=== PATIENT | male | born 1990 | race American Indian/Alaskan Native ===

== ENCOUNTER 2016-09-11 10:52 | Emergency (ER) | payer SELFPAY ==
--- NOTE | 2016-09-11 11:11 | Emergency Department Report ---
Chief Complaint: Abdominal Pain Stated Complaint: LOWER LEFT SIDE PAIN Time Seen by Provider: 09/11/16 11:09 - HPI History of Present Illness: 26 male complaining of intermittent left flank pain 1 month. Complain of nausea. Denies any vomiting, diarrhea ,or painful urination. - ROS Review of Systems: per HPI - Exam Vital Signs: Vital Signs 09/11/16 10:55 Temperature 98.6 F Pulse Rate 76 Respiratory 18 Rate Blood Pressure 130/91 O2 Sat by Pulse 97 Oximetry Physical Exam: GENERAL: The patient is well-developed and well-nourished. Patient is in NAD. HENT: Normocephalic. Atraumatic. Patient has moist mucous membranes. Throat: No erythema, swelling or exudates. EYES: Extraocular motions are intact, PERRL NECK: Supple. No meningitic signs are noted. There is no adenopathy noted. CHEST/LUNGS: Clear to auscultation bilaterally. No wheezing, rales or rhonchi noted. There is no respiratory distress noted. HEART/CARDIOVASCULAR: Regular rate and rhythm. Normal S1 S2. No murmurs, rubs , clicks, or gallops. ABDOMEN: Abdomen is soft, nontender.. Bowel sounds normoactive. There is no abdominal distention. Negative rebound tenderness. : Deferred. SKIN: There is no rash. There is no edema. There is no diaphoresis. NEURO: The patient is A&Ox3. The patient has no focal neurologic deficits. MUSCULOSKELETAL: There is no tenderness or deformity. There is no limitation range of motion. PSYCH: Pt has appropriate mood and affect. MSE screening note: Focused history and physical exam performed. Due to findings the following was ordered: ED Disposition for MSE Condition: Stable
[2016-09-11 11:37] LABS: Anion Gap 18 mmol/L; BUN/Creatinine Ratio 18.57; Blood Urea Nitrogen 13 mg/dL (9-20); Calcium 8.8 mg/dL (8.4-10.2); Carbon Dioxide 24 mmol/L (22-30); Chloride 100.6 mmol/L (98-107); Glucose 104 mg/dL (75-100); Potassium 4.1 mmol/L (3.6-5.0); Sodium 138 mmol/L (137-145)
[2016-09-11 11:39] LABS: Basophils % (Auto) 0.4 % (0.0-1.8); Hematocrit 39.2 % (35.5-45.6); Mean Corpuscular HGB Conc 33 % (32-34); Mean Corpuscular Hemoglobin 31 pg (28-32); Mean Corpuscular Volume 93 fl (84-94); Platelet Count 189 K/mm3 (140-440); Red Blood Count 4.23 M/mm3 (3.65-5.03); Red Cell Distribution Width 13.1 % (13.2-15.2)
[2016-09-11 11:55] LABS: Mucus,Urine FEW /HPF
[2016-09-11 12:20] LABS: WBC,Urine < 1.0 /HPF (0.0-6.0)
[2016-09-11 12:35] LABS: Bilirubin,Urine NEG (Negative); Blood,Urine NEG (Negative); Ketones,Urine NEG (Negative); Leukocyte Esterase,Urine NEG (Negative); Nitrite,Urine NEG (Negative); Protein,Urine <15 mg/dL mg/dL (Negative)
--- NOTE | 2016-09-11 13:30 | Cat Scan Report ---
CT ABDOMEN AND PELVIS WITHOUT CONTRAST: 09/11/16 10:52:00 CLINICAL:Left flank pain. TECHNIQUE: Volumetric acquisition and 1.25 millimeter scan reconstructions from the lung bases through the iliac crest. The study was performed without oral contrast. FINDINGS: Abdomen:Normal kidneys with nondilated renal collecting systems and ureters. No urinary calculus. Normal liver, bile ducts and gallbladder. Normal stomach, duodenum, pancreas and spleen. Normal aorta and inferior vena cava. The adrenal glands are normal. No ascites and no pneumoperitoneum. The small bowel and colon are normal. An appendix is not identified with certainty. Pelvis: Normal urinary bladder and rectum. Normal prostate and seminal vesicles. Bone windows demonstrate no bone lesion. IMPRESSION: Negative study.
--- NOTE | 2016-09-11 13:41 | Emergency Department Report ---
HPI - General Chief Complaint: Abdominal Pain Time Seen by Provider: 09/11/16 12:11 - HPI HPI: Chief complaint: Left upper abdominal pain HPI: Patient is 26-year-old male with a history of HIV with T-cell count greater than 200 as well as seizure disorder presents with left upper quadrant flank pain intermittent for the last month. Patient states he first noticed it around August 17 states he has it every other day lasting for 10-20 minutes. Patient states that last night it seemed worse than usual so he came to the hospital. Patient is currently not having any pain. Patient had run out of his seizure medications and have a seizure yesterday and was seen at another facility and loaded with Dilantin and put back on his medications. Patient states he has been taking his antiretrovirals faithfully. Mode of arrival: private car Source: Patient and nursing notes Began: See above Duration: See above Context: She denies any dysuria, vomiting or diarrhea. Patient does complain of some nausea Quality: Sharp Severity: Currently 0 out of 10 Improved with: Nothing Worsened with: Nothing Associated signs and symptoms: See above ED Past Medical Hx - Past Medical History Previous Medical History?: Yes Hx Seizures: Yes (No meds for 2 months) Hx Psychiatric Treatment: Yes (DEPRESSION/SUICIDAL) Hx HIV: Yes (No HAART meds for two months) - Surgical History Past Surgical History?: No - Social History Smoking Status: Never Smoker Substance Use Type: None - Medications Home Medications: Home Medications Medication Instructions Recorded Confirmed Last Taken Type Phenytoin [Dilantin] 100 mg PO Q8HR #90 capsule 05/15/15 09/16/15 09/12/15 Rx Abacavir Sulfate/Lamivudine 1 each PO DAILY 09/28/15 09/11/16 04/25/16 History [Epzicom TAB] Atazanavir Sulfate [Reyataz] 400 mg PO QDAY 09/28/15 09/11/16 04/25/16 History Phenytoin [Dilantin] 100 mg PO Q8HR 09/11/16 09/11/16 Unknown History ED Review of Systems ROS: Stated complaint: LOWER LEFT SIDE PAIN Other details as noted in HPI ROS Constitutional: No fever ENT: No uri symptoms Cardiovascular: No chest pain Respiratory: No sob or cough GI: No vomiting or diarrhea : No dysuria frequency or urgency, Skin: No rash Neuro: No focal weakness or numbness Psych: No depression Stewart/lymph: No edema Physical Exam - Physical Exam Vital Signs: Vital Signs 09/11/16 09/11/16 09/11/16 10:55 12:11 12:12 Temperature 98.6 F Pulse Rate 76 Respiratory 18 Rate Blood Pressure 130/91 120/93 120/93 O2 Sat by Pulse 97 100 Oximetry 09/11/16 09/11/16 12:15 12:30 Temperature Pulse Rate Respiratory 18 Rate Blood Pressure 116/78 O2 Sat by Pulse 97 99 Oximetry Physical Exam: GENERAL: The patient is well-developed well-nourished . HEENT: Normocephalic. Atraumatic. Extraocular motions are intact. Patient has moist mucous membranes. NECK: Supple. No meningitic signs are noted. There is no adenopathy noted. CHEST/LUNGS: Clear to auscultation. There is no respiratory distress noted. HEART/CARDIOVASCULAR: Regular. There is no tachycardia. There is no gallop rub or murmur. ABDOMEN: Abdomen is soft, nontender. Patient has normal bowel sounds. There is no abdominal distention. SKIN: There is no rash. There is no edema. There is no diaphoresis. NEURO: The patient is awake, alert, and oriented. The patient is cooperative. The patient has no focal neurologic deficits. The patient has normal speech. MUSCULOSKELETAL: There is no tenderness or deformity. There is no limitation range of motion. There is no evidence of acute injury. ED Course Vital Signs 09/11/16 09/11/16 09/11/16 10:55 12:11 12:12 Temperature 98.6 F Pulse Rate 76 Respiratory 18 Rate Blood Pressure 130/91 120/93 120/93 O2 Sat by Pulse 97 100 Oximetry 09/11/16 09/11/16 12:15 12:30 Temperature Pulse Rate Respiratory 18 Rate Blood Pressure 116/78 O2 Sat by Pulse 97 99 Oximetry ED Medical Decision Making - Lab Data Result diagrams: 09/11/16 11:14 09/11/16 11:14 Urine within normal limits - Radiology Data Radiology results: report reviewed (CT scan shows no acute process.) Critical care attestation.: If time is entered above; I have spent that time in minutes in the direct care of this critically ill patient, excluding procedure time. ED Disposition Clinical Impression: Abdominal pain Qualifiers: Abdominal location: left upper quadrant Qualified Code(s): R10.12 - Left upper quadrant pain Disposition: DISCHARGED TO HOME OR SELFCARE Is pt being admited?: No Does the pt Need Aspirin: No Condition: Stable Referrals: PRIMARY CARE, [Primary Care Provider] - 3-5 Days Time of Disposition: 13:41
[2016-09-11 13:59] VITALS: BP 120/83
== END 2016-09-11 14:05 | disposition home or self-care (01) ==
LOC: ED 10:52
DX: R10.12 Left upper quadrant pain (principal); R56.9 Unspecified convulsions; F32.9 Major depressive disorder, single episode, unspecified
CPT/HCPCS: 36415; 74176; 80048; 81001; 83690; 85025

== ENCOUNTER 2016-09-26 02:21 | Emergency (ER) | payer SELFPAY ==
--- NOTE | 2016-09-26 02:59 | Emergency Department Report ---
ED Seizure HPI - General Chief Complaint: Seizure Stated Complaint: SEIZURE Time Seen by Provider: 09/26/16 02:49 Source: patient, EMS Mode of arrival: Wheelchair Limitations: No Limitations - History of Present Illness Initial Comments: 26-year-old male presents to the emergency department via EMS after a witnessed seizure at work. Per report, tonic-clonic seizure activity was witnessed. Patient is supposed to be taking 100 mg of Dilantin every 8 hours. He states he usually only takes it 1 time a day. At this time, the patient states he feels a little groggy. He denies other symptoms. There are no other complaints. Complaint: seizure -: Sudden, This evening Description of Episode: tonic-clonic movement Witnessed:: Yes Trauma: No Seizure History: known seizure disorder, history of non-compliance Place: work Possible Precipitating Event: none Associated Symptoms: denies other symptoms Treatments Prior to Arrival: none - Related Data Home Medications Medication Instructions Recorded Confirmed Last Taken Abacavir Sulfate/Lamivudine 1 each PO DAILY 09/28/15 09/26/16 09/25/16 [Epzicom TAB] Atazanavir Sulfate [Reyataz] 400 mg PO QDAY 09/28/15 09/26/16 09/25/16 Phenytoin [Dilantin] 100 mg PO Q8HR 09/11/16 09/26/16 09/25/16 Previous Rx's Medication Instructions Recorded Last Taken Type Phenytoin [Dilantin] 100 mg PO Q8HR #90 capsule 05/15/15 09/12/15 Rx Ibuprofen [Motrin 400 MG tab] 400 mg PO Q8H PRN #10 tablet 09/11/16 09/25/16 Rx Allergies Allergy/AdvReac Type Severity Reaction Status Date / Time Penicillins Allergy Unknown Verified 09/11/16 10:55 strawberry [[place]] Allergy Unknown Verified 01/26/14 22:42 ED Review of Systems ROS: Stated complaint: SEIZURE Other details as noted in HPI Comment: All other systems reviewed and negative Neurological: as per HPI (seizure) ED Past Medical Hx - Past Medical History Previous Medical History?: Yes Hx Seizures: Yes Hx Psychiatric Treatment: Yes (DEPRESSION/SUICIDAL) Hx HIV: Yes - Surgical History Past Surgical History?: No - Family History Family history: no significant - Social History Smoking Status: Never Smoker Substance Use Type: None - Medications Home Medications: Home Medications Medication Instructions Recorded Confirmed Last Taken Type Phenytoin [Dilantin] 100 mg PO Q8HR #90 capsule 05/15/15 09/16/15 09/12/15 Rx Abacavir Sulfate/Lamivudine 1 each PO DAILY 09/28/15 09/26/16 09/25/16 History [Epzicom TAB] Atazanavir Sulfate [Reyataz] 400 mg PO QDAY 09/28/15 09/26/16 09/25/16 History Ibuprofen [Motrin 400 MG tab] 400 mg PO Q8H PRN #10 tablet 09/11/16 09/26/16 Rx Phenytoin [Dilantin] 100 mg PO Q8HR 09/11/16 09/26/16 09/25/16 History ED Physical Exam - General Limitations: No Limitations General appearance: alert, in no apparent distress - Head Head exam: Present: atraumatic, normocephalic - Eye Eye exam: Present: normal appearance, PERRL, EOMI - ENT ENT exam: Present: normal exam, normal orophraynx, mucous membranes moist - Neck Neck exam: Present: normal inspection, full ROM. Absent: tenderness - Respiratory Respiratory exam: Present: normal lung sounds bilaterally. Absent: respiratory distress - Cardiovascular Cardiovascular Exam: Present: regular rate, normal rhythm, normal heart sounds - GI/Abdominal GI/Abdominal exam: Present: soft, normal bowel sounds. Absent: distended, tenderness - Extremities Exam Extremities exam: Present: normal inspection, full ROM. Absent: tenderness - Back Exam Back exam: Present: normal inspection, full ROM. Absent: tenderness - Neurological Exam Neurological exam: Present: alert, oriented X3. Absent: motor sensory deficit - Skin Skin exam: Present: warm, dry, intact ED Course Vital Signs 09/26/16 02:33 Temperature 98.7 F Pulse Rate 74 Respiratory 16 Rate Blood Pressure 105/47 [Left] O2 Sat by Pulse 99 Oximetry ED Medical Decision Making - Lab Data Result diagrams: 09/26/16 03:30 09/26/16 03:30 - Medical Decision Making Lab results reviewed and discussed with the patient. Patient has been given his oral dose of Dilantin. Patient counseled on the need to take his medication 3 times a day as prescribed. Patient expresses understanding. Patient will be discharged home at this time. - Differential Diagnosis seizure, medication noncompliance Critical care attestation.: If time is entered above; I have spent that time in minutes in the direct care of this critically ill patient, excluding procedure time. ED Disposition Clinical Impression: Noncompliance with medication regimen, Seizure disorder Disposition: DISCHARGED TO HOME OR SELFCARE Is pt being admited?: No Condition: Stable Instructions: Recurrent Seizures Adult (ED) Referrals: PRIMARY CARE, [Primary Care Provider] - 3-5 Days Time of Disposition: 04:54
[2016-09-26] MEDS: DILANTIN 1,000 MG in NACL 0.9% 250ML 250 ML IV ONE ×2 (03:51→04:37)
[2016-09-26 03:58] LABS: Basophils % (Auto) 0.2 % (0.0-1.8); Eosinophils % (Auto) 3.6 % (0.0-4.3); Hematocrit 34.8 % (35.5-45.6); Hemoglobin 12.3 gm/dl (11.8-15.2); Mean Corpuscular HGB Conc 35 % (32-34); Mean Corpuscular Hemoglobin 32 pg (28-32); Mean Corpuscular Volume 91 fl (84-94); Platelet Count 190 K/mm3 (140-440); Red Blood Count 3.81 M/mm3 (3.65-5.03); Red Cell Distribution Width 13.3 % (13.2-15.2); White Blood Count 5.3 K/mm3 (4.5-11.0)
[2016-09-26 04:01] LABS: Blood Urea Nitrogen 9 mg/dL (9-20); Calcium 8.6 mg/dL (8.4-10.2); Carbon Dioxide 27 mmol/L (22-30); Chloride 104.2 mmol/L (98-107); Glucose 95 mg/dL (75-100); Potassium 4.2 mmol/L (3.6-5.0); Sodium 141 mmol/L (137-145)
[2016-09-26] MEDS ORDERED: DILANTIN PO STA (04:10)
[2016-09-26 04:22] LABS: Anion Gap 14 mmol/L
[2016-09-26 06:02] VITALS: BP 110/65
== END 2016-09-26 06:08 | disposition home or self-care (01) ==
LOC: ED 02:21
DX: G40.909 Epilepsy, unspecified, not intractable, without status epilepticus (principal); Z91.14 Patient's other noncompliance with medication regimen; Z21 Asymptomatic human immunodeficiency virus [HIV] infection status; Z88.0 Allergy status to penicillin; Z91.018 Allergy to other foods
CPT/HCPCS: 36415; 80048; 85025; 96365; 99284; J1165; J7050

== ENCOUNTER 2017-03-27 14:35 | Inpatient (IN) | payer OTHER ==
--- NOTE | 2017-03-27 15:34 | Emergency Department Report ---
Chief Complaint: Seizure Stated Complaint: HAD A SEIZURE Time Seen by Provider: 03/27/17 15:30 - HPI History of Present Illness: PT has a hx of sz. PT states he ran out of his SZ medication "a while ago". PT states he had a sz today. PT states he was standing up in the bathroom when he had sz - ROS Review of Systems: + headache + stomach pain + low back pain - Exam Physical Exam: pt is alert and appropriate. heent- atraumatic gcs 15 MSE screening note: Focused history and physical exam performed. Due to findings the following was ordered: labs, ct scan ED Disposition for MSE Condition: Stable
--- NOTE | 2017-03-27 15:51 | Cat Scan Report ---
CT HEAD WITHOUT CONTRAST: HISTORY: Injury, seizure. Serial contiguous axial images were obtained through the cranium. Intravenous contrast material was not administered. The ventricles are normal in size and appearance. There is no mass effect or midline shift. No areas of abnormally increased or decreased attenuation are seen. No mass lesion is seen. There is mild mucosal thickening and fluid in ethmoid sinuses. IMPRESSION: Cranial CT scan within normal limits. No significant change since 04/25/16.
[2017-03-27 16:21] LABS: Basophils % (Auto) 0.1 % (0.0-1.8); Eosinophils % (Auto) 2.4 % (0.0-4.3); Hemoglobin 14.9 gm/dl (11.8-15.2); Mean Corpuscular HGB Conc 34 % (32-34); Mean Corpuscular Hemoglobin 31 pg (28-32); Mean Corpuscular Volume 92 fl (84-94); Platelet Count 236 K/mm3 (140-440); Red Blood Count 4.78 M/mm3 (3.65-5.03); Red Cell Distribution Width 12.5 % (13.2-15.2)
[2017-03-27] MEDS ORDERED: ATIVAN ONE (16:38)
[2017-03-27 16:47] LABS: Alanine Aminotransferase 7 units/L (7-56); Albumin 4.7 g/dL (3.9-5); Albumin/Globulin Ratio 1.3 %; Alkaline Phosphatase 68 units/L (35-129); Anion Gap 16 mmol/L; Blood Urea Nitrogen 11 mg/dL (9-20); Calcium 9.5 mg/dL (8.4-10.2); Carbon Dioxide 25 mmol/L (22-30); Chloride 95.8 mmol/L (98-107); Creatine Kinase 679 units/L (55-170); Glucose 86 mg/dL (75-100); Sodium 133 mmol/L (137-145); Total Protein 8.2 g/dL (6.3-8.2)
[2017-03-27] MEDS ORDERED: NACL 0.9% 1000 ML 1,000 ML IV ONE ×2 (16:57→18:49)
[2017-03-27] MEDS ORDERED: ZOFRAN IV PRN (17:24)
[2017-03-27] MEDS ORDERED: DILANTIN 1,000 MG in NACL 0.9% 250ML 250 ML IV ONE (17:24)
[2017-03-27] MEDS ORDERED: MILK OF MAGNESIA PO PRN (17:24)
[2017-03-27] MEDS ORDERED: TYLENOL PO PRN (17:24)
[2017-03-27] MEDS ORDERED: DULCOLAX PR PRN (17:24)
--- NOTE | 2017-03-27 17:31 | Emergency Department Report ---
HPI - General Chief Complaint: Seizure Time Seen by Provider: 03/27/17 15:30 - HPI HPI: PT has a hx of sz. PT states he ran out of his SZ medication "a while ago". PT states he had a sz today. PT states he was standing up in the bathroom when he had sz. In the outpatient happy to be very sluggish, but agitated when engaged. He stated noncompliance with his medication. He denies any fever or neck pain but does have a mild headache which he says always happens after a long seizure. - ROS Review of Systems: + headache + stomach pain + low back pain ED Past Medical Hx - Past Medical History Previous Medical History?: Yes Hx Seizures: Yes Hx Psychiatric Treatment: Yes (DEPRESSION/SUICIDAL) Hx HIV: Yes - Surgical History Past Surgical History?: No - Social History Smoking Status: Never Smoker Substance Use Type: None - Medications Home Medications: Home Medications Medication Instructions Recorded Confirmed Last Taken Type Abacavir Sulfate/Lamivudine 1 each PO DAILY 09/28/15 09/26/16 09/25/16 History [Epzicom TAB] Atazanavir Sulfate [Reyataz] 400 mg PO QDAY 09/28/15 09/26/16 09/25/16 History Ibuprofen [Motrin 400 MG tab] 400 mg PO Q8H PRN #10 tablet 09/11/16 09/26/16 Rx Phenytoin [Dilantin] 100 mg PO Q8HR 09/11/16 09/26/16 09/25/16 History ED Review of Systems ROS: Stated complaint: HAD A SEIZURE Other details as noted in HPI Comment: All other systems reviewed and negative Constitutional: weakness Neurological: headache, weakness Physical Exam - Physical Exam Vital Signs: Vital Signs 03/27/17 15:26 Temperature 98.6 F Pulse Rate 100 H Respiratory 16 Rate Blood Pressure 123/83 O2 Sat by Pulse 100 Oximetry Physical Exam: Vitals reviewed Gen. alert and oriented 3 in mild distress Head atraumatic normocephalic Eyes PERR LA EOMI Chest regular rate and rhythm normal S1-S2 lungs clear bilaterally Abdomen soft nondistended Back no point tenderness paravertebral tenderness Neuro no focal deficit. Lethargic but easily arousable Psych normal mood. ED Course Vital Signs 03/27/17 15:26 Temperature 98.6 F Pulse Rate 100 H Respiratory 16 Rate Blood Pressure 123/83 O2 Sat by Pulse 100 Oximetry ED Medical Decision Making - Lab Data Result diagrams: 03/27/17 16:03 03/27/17 16:03 Critical care attestation.: If time is entered above; I have spent that time in minutes in the direct care of this critically ill patient, excluding procedure time. ED Disposition Clinical Impression: Seizures, generalized convulsive, HIV (human immunodeficiency virus infection) Disposition: DC09 OP ADMIT IP TO THIS HOSP Is pt being admited?: Yes Does the pt Need Aspirin: No Condition: Stable
--- NOTE | 2017-03-27 17:50 | Admit Criteria Form ---
Admission Criteria Documentation: SEIZURE Clinical Indications for Admission to Inpatient Care (Place 'X' for any and all applicable criteria): Admission is indicated for seizure and ANY ONE of the following(1)(2)(3)(4)(5): [ X]I. Inpatient admission required rather than observation care (Also use Seizure: Observation Care Criteria as appropriate) because of ANY ONE of the following: [ ]a) Altered mental status that is severe or persistent [ ]b) New focal neurologic deficit that is severe or persistent [ ]c) Metabolic disorder (eg, hypoglycemia, hyponatremia) that is severe or persistent [ ]d) Recurrent seizure [ ]e) Outpatient antiseizure regimen cannot be established (eg , patient cannot tolerate medication, initiation requires inpatient care) [ ]f) Need for ongoing intravenous infusion of antiseizure medication [ ]g) Cardiac arrhythmias of immediate concern [ ]h) Cerebral bleeding, hydrocephalus, or vasospasm monitoring (14) [ ]i) Increased intracranial pressure or cerebral edema monitoring (15) [ X]j) Other treatment or monitoring requiring inpatient admission [ ]II. Status epilepticus [A] or repetitive seizures not controlled with emergent treatment (6)(8) [ ]III. Brain disorder (eg, tumor, edema, and hydrocephalus) that requiring monitoring or intervention available only at inpatient level of care. [ ]IV. Brain insult (eg, severe trauma, stroke, drug toxicity, or withdrawal) that requires monitoring or intervention available only at inpatient level of care (10)(11) Extended stay beyond goal length of stay may be needed for (22) [ ]a) Complications of status epilepticus [ ]b) Refractory status epilepticus [ ]c) Etiology-specific therapy for conditions such as [employer]ING W[employer]CH[employer]ICIAN infection, head injury,eclampsia, severe metabolic abnormalities, and brain tumor [ ]d) Residual neurologic damage, [ ]e) Initiation of significant change to anticonvulsant treatment [ ]f) Older patients (65 years or older) [ ]g) Patient requiring intubation (eg, to protect airway) The original [facility] content created by [employer] has been revised. The portions of the content which have been revised are identified through the use of italic text or in bold, and [facility] [employer] has neither reviewed nor approved the modified material. All other unmodified content is copyright [facility] [employer]. Please see references footnoted in the original [facility] edition 2016 Admission Criteria Met: Yes
[2017-03-27] MEDS ORDERED: NACL 0.9% 1000 ML 1,000 ML IV SCH (18:00)
[2017-03-27 20:49] LABS: Urine Drugs of Abuse Note Disclamer
[2017-03-27 20:55] LABS: Bilirubin,Urine NEG (Negative); Blood,Urine NEG (Negative); Ketones,Urine NEG (Negative); Leukocyte Esterase,Urine NEG (Negative); Mucus,Urine FEW /HPF; Nitrite,Urine NEG (Negative); Protein,Urine <15 mg/dL mg/dL (Negative); Urobilinogen,Urine < 2.0 mg/dL (<2.0); WBC,Urine < 1.0 /HPF (0.0-6.0)
--- NOTE | 2017-03-27 22:28 | History and Physical Report ---
History of Present Illness Date of admission: 03/27/17 17:24 Chief complaint: Seizure History of present illness: 27-year-old male with a past medical history of HIV, seizure disorder. Apparently ran out of seizure medications 3 days ago and did not have time to go refill them. He was found by his family seizing. Initially he was standing in the bathroom and fell down and had tonic-clonic seizure brought to the ER had another seizure which finally broke with 2 mg of Ativan. When I interviewed the patient he somnolent and lethargic, post ictal, he states that he ran out of medications and didn't have time to get anymore when I attempted to get any further history patient fell into a deep sleep. Past History Past Medical History: HIV/AIDS, seizures Past Surgical History: Other ( unknown) Social history: other (unknown) Family history: other (unknown unknown) Medications and Allergies Allergies Allergy/AdvReac Type Severity Reaction Status Date / Time Penicillins Allergy Unknown Verified 09/11/16 10:55 strawberry [[place]] Allergy Unknown Verified 01/26/14 22:42 Home Medications Medication Instructions Recorded Confirmed Last Taken Type Ibuprofen [Motrin 400 MG tab] 400 mg PO Q8H PRN #10 tablet 09/11/16 03/27/17 Rx Phenytoin [Dilantin] 100 mg PO Q8HR 09/11/16 03/27/17 09/25/16 History Darunavir [Prezista] 800 mg PO QDAY 03/27/17 03/27/17 03/27/17 History Elviteg/Nicole/Emtric/Tenofo Ala 1 tab PO QDAY 03/27/17 03/27/17 03/27/17 History [Genvoya (Nf)] Active Meds: Active Medications Acetaminophen (Tylenol) 650 mg PO Q4H PRN PRN Reason: Pain MILD(1-3)/Fever >100.5/KHAN Bisacodyl (Dulcolax) 10 mg [place] QDAY PRN PRN Reason: Constipation unrelieved by MOM Sodium Chloride (Nacl 0.9% 1000 Ml) 1,000 mls @ 150 mls/hr IV DIRECT YNES Stop: 03/29/17 17:59 Magnesium Hydroxide (Milk Of Magnesia) 30 ml PO Q4H PRN PRN Reason: Constipation Miscellaneous Medication (Abacavir Sulfate/Lamivudine [Epzicom Tab]) 1 each PO DAILY YNES Miscellaneous Medication (Atazanavir Sulfate [Reyataz]) 400 mg PO QDAY YNES Ondansetron HCl (Zofran) 4 mg IV Q8H PRN PRN Reason: Nausea And Vomiting Phenytoin (Dilantin) 100 mg IV Q8HR YNES Review of Systems ROS unobtainable: due to mental status Exam - Physical Exam Narrative exam: General: Patient appears well in no distress HEENT: MMM, EOMI cardiac: S1-S2 heard lungs: clear to auscultation, abdomen: soft, nontender, nondistended bowel sounds positive extremities: no edema clubbing or cyanosis Skin: no rash or lesion Neuro: Arousable, but very somnolent, answers some questions appropriately, then falls back asleep, moves all extremities Psych: Unable to assess - Constitutional Vitals: Temp Pulse Resp BP Pulse Ox 98.8 F 114 H 18 117/61 99 03/27/17 18:53 03/27/17 20:08 03/27/17 20:08 03/27/17 20:20 03/27/17 20:20 Results - Labs CBC & Chem 7: 03/27/17 16:03 03/27/17 16:03 Labs: Laboratory Last Values WBC 13.0 K/mm3 (4.5-11.0) H 03/27/17 16:03 RBC 4.78 M/mm3 (3.65-5.03) 03/27/17 16:03 Hgb 14.9 gm/dl (11.8-15.2) 03/27/17 16:03 Hct 44.0 % (35.5-45.6) 03/27/17 16:03 MCV 92 fl (84-94) 03/27/17 16:03 MCH 31 pg (28-32) 03/27/17 16:03 MCHC 34 % (32-34) 03/27/17 16:03 RDW 12.5 % (13.2-15.2) L 03/27/17 16:03 Plt Count 236 K/mm3 (140-440) 03/27/17 16:03 Lymph % (Auto) 8.9 % (13.4-35.0) L 03/27/17 16:03 [place] % (Auto) 5.0 % (0.0-7.3) 03/27/17 16:03 Eos % (Auto) 2.4 % (0.0-4.3) 03/27/17 16:03 Baso % (Auto) 0.1 % (0.0-1.8) 03/27/17 16:03 Lymph # 1.2 K/mm3 (1.2-5.4) 03/27/17 16:03 Travis # 0.7 K/mm3 (0.0-0.8) 03/27/17 16:03 Eos # 0.3 K/mm3 (0.0-0.4) 03/27/17 16:03 Baso # 0.0 K/mm3 (0.0-0.1) 03/27/17 16:03 Seg Neutrophils % 83.6 % (40.0-70.0) H 03/27/17 16:03 Seg Neutrophils # 10.9 K/mm3 (1.8-7.7) H 03/27/17 16:03 Sodium 133 mmol/L (137-145) L 03/27/17 16:03 Potassium 4.0 mmol/L (3.6-5.0) 03/27/17 16:03 Chloride 95.8 mmol/L (98-107) L 03/27/17 16:03 Carbon Dioxide 25 mmol/L (22-30) 03/27/17 16:03 Anion Gap 16 mmol/L 03/27/17 16:03 BUN 11 mg/dL (9-20) 03/27/17 16:03 Creatinine 1.0 mg/dL (0.8-1.5) 03/27/17 16:03 Estimated GFR > 60 ml/min 03/27/17 16:03 BUN/Creatinine Ratio 11.00 % 03/27/17 16:03 Glucose 86 mg/dL (75-100) 03/27/17 16:03 Calcium 9.5 mg/dL (8.4-10.2) 03/27/17 16:03 Total Bilirubin 0.50 mg/dL (0.1-1.2) 03/27/17 16:03 AST 22 units/L (5-40) 03/27/17 16:03 ALT 7 units/L (7-56) 03/27/17 16:03 Alkaline Phosphatase 68 units/L (35-129) 03/27/17 16:03 Total Creatine Kinase 679 units/L (55-170) H 03/27/17 16:03 Total Protein 8.2 g/dL (6.3-8.2) 03/27/17 16:03 Albumin 4.7 g/dL (3.9-5) 03/27/17 16:03 Albumin/Globulin Ratio 1.3 % 03/27/17 16:03 Urine Color Straw (Yellow) 03/27/17 20:42 Urine Turbidity Clear (Clear) 03/27/17 20:42 Urine pH 5.0 (5.0-7.0) 03/27/17 20:42 Ur Specific [place] 1.011 (1.003-1.030) 03/27/17 20:42 Urine Protein <15 mg/dl mg/dL (Negative) 03/27/17 20:42 Urine Glucose (UA) Neg mg/dL (Negative) 03/27/17 20:42 Urine Ketones Neg mg/dL (Negative) 03/27/17 20:42 Urine Blood Neg (Negative) 03/27/17 20:42 Urine Nitrite Neg (Negative) 03/27/17 20:42 Urine Bilirubin Neg (Negative) 03/27/17 20:42 Urine Urobilinogen < 2.0 mg/dL (<2.0) 03/27/17 20:42 Ur Leukocyte Esterase Neg (Negative) 03/27/17 20:42 Urine WBC (Auto) < 1.0 /HPF (0.0-6.0) 03/27/17 20:42 Urine RBC (Auto) 4.0 /HPF (0.0-6.0) 03/27/17 20:42 Urine Mucus Few /HPF 03/27/17 20:42 Urine Opiates Screen Presumptive negative 03/27/17 20:42 Urine Methadone Screen Presumptive negative 03/27/17 20:42 Ur Barbiturates Screen Presumptive positive 03/27/17 20:42 Ur Phencyclidine Scrn Presumptive negative 03/27/17 20:42 Ur Amphetamines Screen Presumptive negative 03/27/17 20:42 U Benzodiazepines Scrn Presumptive negative 03/27/17 20:42 Urine Cocaine Screen Presumptive negative 03/27/17 20:42 U Marijuana (THC) Screen Presumptive negative 03/27/17 20:42 Drugs of Abuse Note Disclamer 03/27/17 20:42 Assessment and Plan Assessment and plan: 27-year-old male with a past medical history of HIV, seizure disorder who ran out of his medications a few days ago. He was brought to the hospital by his family noticed him to be having a seizure. Status epilepticus Obtain Dilantin levels, Dilantin load has been ordered and patient was restarted on Dilantin 3 times a day, neurology consultation, was likely due to noncompliance Metabolic encephalopathy Most likely due to post ictal period, obtain UDS, SIRS It is unlikely to be due to infection, this is most likely due to seizure, continue IV fluids, should resolve Acute traumatic rhabdomyolysis CPK elevated, patient fell on the floor when he was having a seizure, treated IV fluids, should resolve with hydration HIV Resume his HIV meds, check CD4 counts and viral load Noncompliance When his mentation is improved patient should be counseled on improved compliance with his seizure medications, there is risk of with uncontrolled seizures from everyday tasks such as walking down the stairs VTE prophylaxis?: Mechanical Plan of care discussed with patient/family: Yes
[2017-03-27] MEDS: DILANTIN IV SCH (23:57)
[2017-03-28] MEDS: DILANTIN IV SCH (07:17)
--- NOTE | 2017-03-28 07:17 | Discharge Summary ---
Providers - Providers Date of Admission: 03/27/17 17:24 Attending physician: VICKY EATON MD Primary care physician: RG CAMPOS MD Hospitalization Condition: Stable Hospital course: 27-year-old male with a past medical history of HIV, seizure disorder who ran out of his medications for a few days ago. He was brought to the hospital by his family noticed him to be having a seizure. He was noted to have another seizure in the ER, he received Ativan after which seizure broke. He was reloaded with Dilantin, serum Dilantin levels are therapeutic after he receives Dilantin load. He was counseled on improved compliance. He has no evidence of infection. He did suffer some rhabdomyolysis for which he received IV fluids, his renal function was well maintained. He was continued on the rest of of his chronic medications for his chronic medical problems. Discharge diagnoses Status epilepticus Metabolic encephalopathy SIRS Acute traumatic rhabdomyolysis HIV Noncompliance Disposition: TO HOME OR SELFCARE Time spent for discharge: 33 minutes Core Measure Documentation - Palliative Care Palliative Care/ Comfort Measures: Not Applicable - Core Measures Any of the following diagnoses?: none Exam - Constitutional Vitals: Temp Pulse Resp BP Pulse Ox 98.8 F 114 H 18 117/61 99 03/27/17 18:53 03/27/17 20:08 03/27/17 20:08 03/27/17 20:20 03/27/17 20:20 General appearance: Present: no acute distress, well-nourished - EENT Eyes: Present: PERRL ENT: hearing intact, clear oral mucosa - Neck Neck: Present: supple, normal ROM - Respiratory Respiratory effort: normal Respiratory: bilateral: CTA - Cardiovascular Heart Sounds: Present: S1 & S2. Absent: rub, click - Extremities Extremities: pulses symmetrical, No edema Peripheral Pulses: within normal limits - Abdominal General gastrointestinal: Present: soft, non-tender, non-distended, normal bowel sounds Male genitourinary: Present: normal - Integumentary Integumentary: Present: clear, warm, dry - Musculoskeletal Musculoskeletal: gait normal, strength equal bilaterally - Psychiatric Psychiatric: appropriate mood/affect, intact judgment & insight - Neurologic Neurologic: CNII-XII intact, moves all extremities Plan Follow up with: RG CAMPOS MD [Primary Care Provider] - 7 Days KRISTINA ZAMORANO MD [Staff Physician] - 7 Days Prescriptions: Abacavir Sulfate/Lamivudine [Epzicom TAB] 1 each PO DAILY #30 Atazanavir Sulfate [Reyataz] 400 mg PO QDAY #30 Darunavir [Prezista] 800 mg PO QDAY #30 tablet Elviteg/Nicole/Emtric/Tenofo Ala [Genvoya (Nf)] 1 tab PO QDAY #30 tablet Phenytoin [Dilantin] 100 mg PO Q8HR #90 capsule.er
[2017-03-28] MEDS ORDERED: ATAZANAVIR SULFATE PO SCH (10:00)
[2017-03-28] MEDS ORDERED: LAMIVUDINE PO SCH (10:00)
[2017-03-28] MEDS ORDERED: ABACAVIR SULFATE PO SCH (10:00)
--- NOTE | 2017-03-28 10:51 | Consultation ---
History of Present Illness Consult date: 03/28/17 Requesting physician: JOSE RIOS Reason for Consult: seizure Chief complaint: seizure History of present illness: 27 YO M hx HIV on HAART and epilepsy for last 3-4 years on PHT 100 TID but ran out of meds several days ago. He had a breakthrough seizure on 03/27 and recurrent in ED. Sz lasted ? 1-2 mins. There were no clear aggravating, relieving or temporal factors. Severity was enough to cause LOC.. Past History Past Medical History: HIV/AIDS, seizures Past Surgical History: No surgical history Social history: Lives alone Family history: no significant family history Medications and Allergies Allergies Allergy/AdvReac Type Severity Reaction Status Date / Time Penicillins Allergy Unknown Verified 09/11/16 10:55 strawberry [[place]] Allergy Unknown Verified 01/26/14 22:42 Home Medications Medication Instructions Recorded Confirmed Last Taken Type Ibuprofen [Motrin 400 MG tab] 400 mg PO Q8H PRN #10 tablet 09/11/16 03/27/17 Rx Abacavir Sulfate/Lamivudine 1 each PO DAILY #30 03/28/17 Unknown Rx [Epzicom TAB] Atazanavir Sulfate [Reyataz] 400 mg PO QDAY #30 03/28/17 Unknown Rx Darunavir [Prezista] 800 mg PO QDAY #30 tablet 03/28/17 Unknown Rx Elviteg/Nicole/Emtric/Tenofo Ala 1 tab PO QDAY #30 tablet 03/28/17 Unknown Rx [Genvoya (Nf)] Phenytoin [Dilantin] 100 mg PO Q8HR #90 capsule.er 03/28/17 Unknown Rx Active Meds: Active Medications Acetaminophen (Tylenol) 650 mg PO Q4H PRN PRN Reason: Pain MILD(1-3)/Fever >100.5/KHAN Bisacodyl (Dulcolax) 10 mg [place] QDAY PRN PRN Reason: Constipation unrelieved by MOM Sodium Chloride (Nacl 0.9% 1000 Ml) 1,000 mls @ 150 mls/hr IV DIRECT YNES Stop: 03/29/17 17:59 Last Admin: 03/28/17 02:28 Dose: 150 mls/hr Magnesium Hydroxide (Milk Of Magnesia) 30 ml PO Q4H PRN PRN Reason: Constipation Miscellaneous Medication (Abacavir Sulfate/Lamivudine [Epzicom Tab]) 1 each PO DAILY [facility] Miscellaneous Medication (Atazanavir Sulfate [Reyataz]) 400 mg PO QDAY [facility] Ondansetron HCl (Zofran) 4 mg IV Q8H PRN PRN Reason: Nausea And Vomiting Phenytoin (Dilantin) 100 mg IV Q8HR [facility] Last Admin: 03/28/17 07:17 Dose: 100 mg Review of Systems All systems: negative Neurological: seizures, confusion, no weakness, no parathesias, no numbness, no tingling, no syncope, no vertigo, no headaches, no migraines, no change in speech, no change in mentation, no memory loss, no changes in smell/taste, no gait dysfunction, no motor disturbance, no sensory deficit, no double vision, no loss of vision Physical Examination - Vital Signs Vital Signs: Vital Signs Temp Pulse Resp BP Pulse Ox 98.6 F 100 H 16 123/83 100 03/27/17 15:26 03/27/17 15:26 03/27/17 15:26 03/27/17 15:26 03/27/17 15:26 - Constitutional General appearance: comfortable - EENT EENT: Present: ATNC, PERRL, mucous membranes moist, hearing intact, vision intact - Respiratory Respiratory: Present: chest non-tender, normal breath sounds, no respiratory distress - Cardiovascular Cardiovascular: Present: regular rate Extremities: Present: no peripheral edema bilatateraly, no clubbing, cyanosis, no inflammation, no ischemia or petechiae - Gastrointestinal Gastrointestinal: Present: normoactive bowel sounds, soft, non-distended - Integumentary Integumentary: Present: normal - Neurologic Cranial nerve examination: PERRL, EOMI, VFF, V1/V2/V3 grossly intact, face symmetric, tongue midline, intact, Intact Vestibulo-ocular r, intact corneal reflex, facial droop, normal palatal elevation Speech examination: intact Sensorimotor examination: intact Motor examination - right side: 5/5: biceps, triceps, wrist flexion, wrist extension, sales representative supervisor, hip flexors, knee extensors, dorsiflexion, toe extension (EHL) , plantarflexion Motor examination - left side: 5/5: biceps, triceps, wrist flexion, wrist extension, sales representative supervisor, hip flexors, knee extensors, dorsiflexion, toe extension (EHL) , plantarflexion Detailed sensory examination: intact, light touch, temperature Reflex and gait examination: intact Reflexes: 2+: ankle, bicep, knee, tricep - Musculoskeletal Musculoskeletal: Present: no fluid collection, no pain, normal range of motion - Psychiatric Psychiatric: Present: mood/affect appropriate, cooperative Results - Laboratory Findings CBC and BMP: 03/27/17 16:03 03/27/17 16:03 Assessment and Plan 27 YO M hx HIV on HAART and epilepsy for last 3-4 years on PHT 100 TID but ran out of meds several days ago. He p/w breakthrough seizure x 2 on 03/27. He is resolved to baseline w/o deficits on exam. CTH neg. P susan and Recommendation: 1. Telemetry bed w/ Q4 hour neuro checks & Sz precautions 2. Labs: Serum/Urine Tox, UA/UCx, Electrolytes especially Na, Ca, Mg, and Glucose, TSH/Ammonia and correct as necessary 3. Cont Infectious work up/medical management for UTI, PNA, cellulitis, bacteremia, etc. 4. Avoid hyponatremia, hypo/hyper-calcemia, hypo/hyperglycemia, acidosis, hypoxia/hypoxemia, hypercarbia/hypercapnia 5. Avoid institution of any psychoactive medications (e.g. antihistamines, anticholinergics, BZD, hypnotics, opiates) as able unless low doses of low potency antipsychotic needed for behavioral issues complicating medical care 6. AED therapy: Resume PHT 100mg TID. PHT level 7/18 AM is 14.8. 7. Avoid meds that can lower sz threshold e.g. Tramadol, fluroquinolones, carbapenems 8. If Hx obtained to suggest EtOH dependence, supplement Thiamine, Folate and cont CIWA Protocol 9. Pt advised of [place] driving regulations: report date of presumed Seizure/ unexplained loss of consciousness/awareness spell to [facility], refrain from operating a motor vehicle for 6 months after this date, and avoid unsupervised activity particularly around water or heights 10. Neurologically clear for discharge once resolved fully to baseline w/o recurrent seizure for 24 hrs. 11. Follow up as outpt with Neurology
[2017-03-28 11:06] VITALS: BP 119/80
[2017-03-30 16:34] LABS: HIV-1 RNA QN PCR <1.30 Log cps/mL (<1.30); HIV-1 RNA QN PCR <20 copies/mL (<20)
== END 2017-03-28 15:00 | disposition home or self-care (01) | DRG 100 ==
LOC: ED 14:35 → 3A 17:24
PROVIDERS: ADMIT Internal Medicine; ATTEND Internal Medicine
DX: G40.901 Epilepsy, unspecified, not intractable, with status epilepticus (principal); B20 Human immunodeficiency virus [HIV] disease; G93.41 Metabolic encephalopathy; R65.10 Systemic inflammatory response syndrome (SIRS) of non-infectious origin without acute organ dysfunction; M62.82 Rhabdomyolysis; F32.9 Major depressive disorder, single episode, unspecified; Z88.0 Allergy status to penicillin; Z91.02 Food additives allergy status; Z91.19 Patient's noncompliance with other medical treatment and regimen; Z91.5 Personal history of self-harm; Z71.89 Other specified counseling; Z60.2 Problems related to living alone
CPT/HCPCS: 36415; 70450; 80053; 80185; 80307; 81001; 82024; 82550; 85025; 87536; 96361; 96365; J1165; J2060; J7030; J7050

== ENCOUNTER 2017-11-01 13:04 | Emergency (ER) | payer SELFPAY ==
[2017-11-01 13:14] VITALS: BP 138/88
--- NOTE | 2017-11-01 14:49 | Emergency Department Report ---
ED Seizure HPI - General Chief Complaint: Seizure Stated Complaint: SIEZURE/NUMBNESS TO ARM Time Seen by Provider: 11/01/17 14:46 Source: patient Mode of arrival: Ambulatory Limitations: No Limitations - History of Present Illness MD Complaint: seizure -: Gradual Description of Episode: loss of consciousness Witnessed:: Yes Trauma: No Seizure History: known seizure disorder Place: street/outdoors Possible Precipitating Event: none Associated Symptoms: other (paresthesia left side, has had similar symptoms with other seizures) - Related Data Previous Rx's Medication Instructions Recorded Last Taken Type Ibuprofen [Motrin 400 MG tab] 400 mg PO Q8H PRN #10 tablet 09/11/16 09/25/16 Rx Abacavir Sulfate/Lamivudine 1 each PO DAILY #30 03/28/17 Unknown Rx [Epzicom TAB] Atazanavir Sulfate [Reyataz] 400 mg PO QDAY #30 03/28/17 Unknown Rx Darunavir [Prezista] 800 mg PO QDAY #30 tablet 03/28/17 Unknown Rx Elviteg/Nicole/Emtric/Tenofo Ala 1 tab PO QDAY #30 tablet 03/28/17 Unknown Rx [Genvoya (Nf)] Phenytoin [Dilantin] 100 mg PO Q8HR #90 capsule.er 11/01/17 Unknown Rx Allergies Allergy/AdvReac Type Severity Reaction Status Date / Time Penicillins Allergy Unknown Verified 09/11/16 10:55 strawberry [[place]] Allergy Unknown Verified 01/26/14 22:42 ED Review of Systems ROS: Stated complaint: SIEZURE/NUMBNESS TO ARM Other details as noted in HPI Comment: All other systems reviewed and negative Constitutional: no symptoms reported Neurological: numbness, paresthesias, other (seizures) ED Past Medical Hx - Past Medical History Previous Medical History?: Yes Hx Seizures: Yes (no meds) Hx Psychiatric Treatment: Yes (depression/suicidal) Hx HIV: Yes - Surgical History Past Surgical History?: No - Social History Smoking Status: Never Smoker - Medications Home Medications: Home Medications Medication Instructions Recorded Confirmed Last Taken Type Ibuprofen [Motrin 400 MG tab] 400 mg PO Q8H PRN #10 tablet 09/11/16 03/27/17 Rx Abacavir Sulfate/Lamivudine 1 each PO DAILY #30 03/28/17 Unknown Rx [Epzicom TAB] Atazanavir Sulfate [Reyataz] 400 mg PO QDAY #30 03/28/17 Unknown Rx Darunavir [Prezista] 800 mg PO QDAY #30 tablet 03/28/17 Unknown Rx Elviteg/Nicole/Emtric/Tenofo Ala 1 tab PO QDAY #30 tablet 03/28/17 Unknown Rx [Genvoya (Nf)] Phenytoin [Dilantin] 100 mg PO Q8HR #90 capsule.er 11/01/17 Unknown Rx ED Physical Exam - General Limitations: No Limitations General appearance: alert, in no apparent distress - Head Head exam: Present: atraumatic, normocephalic - Eye Eye exam: Present: normal appearance, PERRL, EOMI - ENT ENT exam: Present: normal exam, normal orophraynx - Neck Neck exam: Present: normal inspection, tenderness - Respiratory Respiratory exam: Present: normal lung sounds bilaterally, respiratory distress - Cardiovascular Cardiovascular Exam: Present: regular rate, normal rhythm - GI/Abdominal GI/Abdominal exam: Present: soft - Rectal Rectal exam: Present: deferred - Extremities Exam Extremities exam: Present: normal inspection, full ROM - Back Exam Back exam: Present: normal inspection, full ROM - Neurological Exam Neurological exam: Present: alert, altered, oriented X3 - Psychiatric Psychiatric exam: Present: normal affect, normal mood - Skin Skin exam: Present: warm, dry, intact ED Course Vital Signs 11/01/17 13:08 Temperature 99.0 F Pulse Rate 96 H Respiratory 16 Rate Blood Pressure 138/88 O2 Sat by Pulse 99 Oximetry Critical care attestation.: If time is entered above; I have spent that time in minutes in the direct care of this critically ill patient, excluding procedure time. ED Disposition Clinical Impression: Seizure disorder Disposition: DC-01 TO HOME OR SELFCARE Is pt being admited?: No Does the pt Need Aspirin: No Condition: Stable Prescriptions: Phenytoin [Dilantin] 100 mg PO Q8HR #90 capsule.er Referrals: PRIMARY CARE, [Primary Care Provider] - 3-5 Days
== END 2017-11-01 14:52 | disposition home or self-care (01) ==
LOC: ED 13:04
DX: G40.909 Epilepsy, unspecified, not intractable, without status epilepticus (principal); R20.2 Paresthesia of skin; F32.9 Major depressive disorder, single episode, unspecified; Z91.018 Allergy to other foods; Z88.0 Allergy status to penicillin
CPT/HCPCS: 99282

== ENCOUNTER 2018-02-02 14:44 | Inpatient (IN) | payer OTHER ==
--- NOTE | 2018-02-02 20:35 | Emergency Department Report ---
HPI - General Chief Complaint: Medical Clearance Time Seen by Provider: 02/02/18 20:28 - HPI HPI: 27-year-old AA male presents to the emergency department with complaint of having a seizure about one month ago and a few seizures before that and feeling "strange" and time. He says he feels like his left side of his body is slightly weaker and/or has decreased sensation. However he denies any restriction to range of motion. He used to be on Depakote but says he has been noncompliant with this medication. Apparently the patient used to be in some type of "program" where he had access to medical care and medications in this program has ended. He has a history of HIV and says that he recently thinks he got HPV. He denies any fever, vision change, slurred speech, chest pain, shortness of breath. No recent travel or sick contacts at home. ED Past Medical Hx - Past Medical History Previous Medical History?: Yes Hx Seizures: Yes (no meds) Hx Psychiatric Treatment: Yes (depression/suicidal) Hx HIV: Yes - Surgical History Past Surgical History?: No - Social History Smoking Status: Current Some Day Smoker Substance Use Type: Alcohol, Marijuana - Medications Home Medications: Home Medications Medication Instructions Recorded Confirmed Last Taken Type Ibuprofen [Motrin 400 MG tab] 400 mg PO Q8H PRN #10 tablet 09/11/16 03/27/17 Rx Abacavir Sulfate/Lamivudine 1 each PO DAILY #30 03/28/17 Unknown Rx [Epzicom TAB] Atazanavir Sulfate [Reyataz] 400 mg PO QDAY #30 03/28/17 Unknown Rx Darunavir [Prezista] 800 mg PO QDAY #30 tablet 03/28/17 Unknown Rx Elviteg/Nicole/Emtric/Tenofo Ala 1 tab PO QDAY #30 tablet 03/28/17 Unknown Rx [Genvoya (Nf)] Phenytoin [Dilantin] 100 mg PO Q8HR #90 capsule.er 11/01/17 Unknown Rx ED Review of Systems ROS: Stated complaint: MEDICAL CLEARENCE Other details as noted in HPI Comment: All other systems reviewed and negative Constitutional: denies: chills, fever Eyes: denies: eye pain, eye discharge, vision change ENT: denies: ear pain, throat pain Respiratory: denies: cough, shortness of breath, wheezing Cardiovascular: denies: chest pain, palpitations Gastrointestinal: denies: abdominal pain, nausea, diarrhea Genitourinary: denies: urgency, dysuria Musculoskeletal: denies: back pain, joint swelling, arthralgia Skin: denies: rash, lesions Neurological: weakness, numbness. denies: headache Physical Exam - Physical Exam Vital Signs: Vital Signs 02/02/18 14:50 Temperature 98.6 F Pulse Rate 108 H Respiratory 20 Rate Blood Pressure 152/95 O2 Sat by Pulse 97 Oximetry Physical Exam: GENERAL: The patient is well-developed well-nourished. HENT: Normocephalic. Atraumatic. Patient has moist mucous membranes. EYES: Extraocular motions are intact. Pupils equal reactive to light bilaterally. There is fatigable horizontal nystagmus. NECK: Supple. Trachea is midline. CHEST/LUNGS: Clear to auscultation. There is no respiratory distress noted. HEART/CARDIOVASCULAR: Regular. There is no tachycardia. There is no murmur. ABDOMEN: Abdomen is soft, nontender. Patient has normal bowel sounds. There is no abdominal distention. SKIN: Skin is warm and dry. NEURO: The patient is awake, alert, and oriented. The patient is cooperative. No motor deficits. No focalizing deficits but he has subjective decreased sensation to the left arm and leg when compared to the right. The patient has normal speech and gait. No pronator drift. No facial asymmetry. No dysmetria. MUSCULOSKELETAL: There is no tenderness or deformity. There is no limitation range of motion. There is no evidence of acute injury. Muscle strength 5 over 5 upper and lower extremities bilaterally. RECTAL: There is a very small area at the 3 o'clock position whether some tissue raised from the rectum that could be a very small hemorrhoid versus condyloma. No bleeding or discharge seen. ED Course Vital Signs 02/02/18 14:50 Temperature 98.6 F Pulse Rate 108 H Respiratory 20 Rate Blood Pressure 152/95 O2 Sat by Pulse 97 Oximetry - Reevaluation(s) Reevaluation #1: 02/02/18 23:58 NIH Stroke Scale/Score (NIHSS) from [facility] on 02/02/2018 All calculations should be rechecked by clinician prior to use RESULT SUMMARY: 1 points NIH Stroke Scale INPUTS: 1A: Level of consciousness > 0 = Alert; keenly responsive 1B: Ask month and age > 0 = Both questions right 1C: 'Blink eyes' & 'squeeze hands' > 0 = Performs both tasks 2: Horizontal extraocular movements > 0 = Normal 3: Visual burnett > 0 = No visual loss 4: Facial palsy > 0 = Normal symmetry 5A: Left arm motor drift > 0 = No drift for 10 seconds 5B: Right arm motor drift > 0 = No drift for 10 seconds 6A: Left leg motor drift > 0 = No drift for 5 seconds 6B: Right leg motor drift > 0 = No drift for 5 seconds 7: Limb Ataxia > 0 = No ataxia 8: Sensation > 1 = Mild-moderate loss: less sharp/more dull 9: Language/aphasia > 0 = Normal; no aphasia 10: Dysarthria > 0 = Normal 11: Extinction/inattention > 0 = No abnormality - Consultations Consultation #1: I spoke with the telemedicine neurologist, Dr. Littlejohn, who listened to the case presentation and the CT scan results of the brain without contrast showing this new right temporal hypodense lesion. He agrees that this may have been a subacute infarct but given the patient's symptoms that are coming and going and secondary to his history of HIV and since the patient does not have good establish follow-up care, he recommends that the patient get admitted for an MRI of the brain with contrast. 02/03/18 00:00 ED Medical Decision Making - Lab Data Result diagrams: 02/02/18 20:36 02/02/18 20:36 - Radiology Data Radiology results: report reviewed CT of the head without contrast shows a new right temporal hypodense lesion. This could be secondary to encephalomalacia. - Medical Decision Making Patient comes in with complaint of some left-sided weakness and decreased sensation that goes on intermittently for the past month since the patient last had a seizure. Currently he is noncompliant with his seizure medication or HIV medication. On the NIH stroke scale he is a one secondary to subjective decreased sensation on that left side. Since his symptoms, and go and have been doing so for at least a month, he does not appear to be a candidate for TPA. However in consultation with telemedicine neurology, the recommendation was made for the patient be admitted for further evaluation and treatment. The patient was accepted for admission by the hospitalist service and Dr. Vazquez. - Differential Diagnosis CVA, TIA, Toxoplasmosis, Hypoglycemia, Substance abuse Critical Care Time: No Critical care attestation.: If time is entered above; I have spent that time in minutes in the direct care of this critically ill patient, excluding procedure time. ED Disposition Clinical Impression: Seizure disorder, HIV (human immunodeficiency virus infection), Noncompliance with medication regimen, Abnormal CT of brain, Left-sided weakness Hypertension Qualifiers: Hypertension type: essential hypertension Qualified Code(s): I10 - Essential ( primary) hypertension Disposition: OP ADMIT IP TO THIS HOSP Is pt being admited?: Yes Condition: Stable Time of Disposition: 00:04
[2018-02-02 20:47] LABS: Basophils % (Auto) 0.2 % (0.0-1.8); Eosinophils # (Auto) 0.4 K/mm3 (0.0-0.4); Eosinophils % (Auto) 7.9 % (0.0-4.3); Hematocrit 41.1 % (35.5-45.6); Hemoglobin 13.7 gm/dl (11.8-15.2); Lymphocytes # (Auto) 1.9 K/mm3 (1.2-5.4); Lymphocytes % (Auto) 37.4 % (13.4-35.0); Mean Corpuscular HGB Conc 33 % (32-34); Mean Corpuscular Hemoglobin 30 pg (28-32); Mean Corpuscular Volume 91 fl (84-94); Monocytes # (Auto) 0.5 K/mm3 (0.0-0.8); Platelet Count 205 K/mm3 (140-440); Red Blood Count 4.53 M/mm3 (3.65-5.03); Red Cell Distribution Width 13.6 % (13.2-15.2)
[2018-02-02 21:10] LABS: Alanine Aminotransferase 10 units/L (7-56); Albumin 4.3 g/dL (3.9-5); BUN/Creatinine Ratio 13; Blood Urea Nitrogen 10 mg/dL (9-20); Calcium 9.3 mg/dL (8.4-10.2); Hemolysis Index 3
[2018-02-02] MEDS ORDERED: TYLENOL PO PRN (23:17)
[2018-02-02] MEDS ORDERED: ZOFRAN IV PRN (23:18)
--- NOTE | 2018-02-03 00:16 | Cat Scan Report ---
FINAL REPORT EXAM: CT HEAD/BRAIN WO CON HISTORY: Seizures, weakness TECHNIQUE: Standard unenhanced CT of the head at 5.0 millimeter axial increments. PRIORS: CT head 04/25/2016 FINDINGS: The ventricular system is normal in size and configuration. There is no evidence for parenchymal volume loss. There is an area of low-density in the lateral right temporal lobe, new since the prior study but appears remote. This is probably a small area of encephalomalacia or remote infarct. There is no evidence for mass lesion, mass effect, midline shift, acute intracranial hemorrhage, or acute ischemia/ infarction. No evidence for acute skull fracture is seen. No abnormality in the overlying scalp soft tissues is seen. Visualized paranasal sinuses demonstrates mucosal thickening through the ethmoid and sphenoid sinuses bilaterally. IMPRESSION: New hypodense area in the right temporal lobe, probably due to prior encephalomalacia or remote infarct. No acute intracranial process noted.
[2018-02-03] MEDS: ASPIRIN PO SCH (10:57)
[2018-02-03] MEDS ORDERED: MORPHINE IV ONE (11:00)
--- NOTE | 2018-02-03 14:06 | Magnetic Resonance Report ---
FINAL REPORT EXAM: MR BRAIN WO/W CON HISTORY: LEFT SIDED WEAKNESS WITH ABNORMAL CT HEAD RESULT TECHNIQUE: Multiplanar multisequence brain MR imaging before and after IV contrast. PRIORS: Head CT 02/02/2018 FINDINGS: Chronic appearing encephalomalacia and volume loss in the right posterior superior temporal lobe is without evidence of restricted diffusion or associated mass. No abnormal IV contrast enhancement in this region. Trace mucosal thickening maxillary and ethmoid sinuses. Moderate mucosal thickening sphenoid sinuses with suggestion of small fluid level on the right. This may reflect acute sinusitis. Foci of hyperintensity in the cerebral white matter, while nonspecific, are present and usually attributed to chronic ischemic gliosis. It can occur secondary to the normal aging process, hypertension, vasculitis, migraine related changes, or arterial sclerotic vascular disease. The differential includes demyelination in this young individual. Sulci and ventricles are age-appropriate. The brain is without mass, mass effect, hemorrhage, or acute infarct. There are no areas of brain restricted diffusion to suggest an acute ischemic infarct. There is no midline shift. IMPRESSION: No MRI evidence of definite acute CVA or brain mass Slight encephalomalacia and volume loss appears chronic in the posterior superior right temporal lobe. This is suggestive of prior infarct Multifocal paranasal sinus disease. Suggestion of fluid level in right sphenoid sinus may reflect acute sinusitis Small hyperintensities in the swanson radiata white matter on FLAIR sequences may reflect early chronic ischemic gliosis. Differential is extensive but includes demyelination disease in this relatively young individual.
[2018-02-03] MEDS ORDERED: MORPHINE IV PRN (14:37)
--- NOTE | 2018-02-03 14:40 | Progress Note ---
Assessment and Plan Assessment and plan: 27-year-old -Irish male with past medical history is significant for HIV on HAART, seizure disorder presented to the emergency department with complaints of left-sided weakness that has been persisting for 1 month. Patient said he had history of seizure and was out of his ear medications and had episodes of seizures. He said he had issue with his PCP and currently doesn't have a primary care doctor to refill his medications. Left-sided weakness - Physical examination didn't show any weakness on the left side - CT and MRI of head was done no acute intracranial findings HIV AIDS - Continue his home medications Seizure disorder - Continue Dilantin Anal wart - And control - Follow up with ID DVT prophylaxis - Lovenox Disposition - Positive discharge tomorrow History Interval history: Patient was seen and evaluated in the morning, patient is complaining weakness on the left side. Patient still complaining pain in the perianal area due to perianal wart. Hospitalist Physical - Physical exam Narrative exam: Not in cardiopulmonary distress. The patient appeared well nourished and normally developed. Vital signs as documented. Head exam is unremarkable. No scleral icterus . Neck is without jugular venous distension, thyromegaly, or carotid bruits. Lungs are clear to auscultation. Cardiac exam reveals regular rate and Rhythm. First and second heart sounds normal. No murmurs, rubs or gallops. Abdominal exam reveals normal bowel sounds, no masses, no organomegaly and no aortic enlargement. Extremities are nonedematous and both femoral and pedal pulses are normal. 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 No focal weakness. - Constitutional Vitals: Temp Pulse Resp BP Pulse Ox 98.9 F 72 20 133/87 98 02/03/18 05:42 02/03/18 10:49 02/03/18 10:56 02/03/18 05:42 02/03/18 10:00 Results - Labs CBC & Chem 7: 02/02/18 20:36 02/02/18 20:36 Labs: Laboratory Last Values WBC 5.2 K/mm3 (4.5-11.0) 02/02/18 20:36 RBC 4.53 M/mm3 (3.65-5.03) 02/02/18 20:36 Hgb 13.7 gm/dl (11.8-15.2) 02/02/18 20:36 Hct 41.1 % (35.5-45.6) 02/02/18 20:36 MCV 91 fl (84-94) 02/02/18 20:36 MCH 30 pg (28-32) 02/02/18 20:36 MCHC 33 % (32-34) 02/02/18 20:36 RDW 13.6 % (13.2-15.2) 02/02/18 20:36 Plt Count 205 K/mm3 (140-440) 02/02/18 20:36 Lymph % (Auto) 37.4 % (13.4-35.0) H 02/02/18 20:36 [place] % (Auto) 9.0 % (0.0-7.3) H 02/02/18 20:36 Eos % (Auto) 7.9 % (0.0-4.3) H 02/02/18 20:36 Baso % (Auto) 0.2 % (0.0-1.8) 02/02/18 20:36 Lymph # 1.9 K/mm3 (1.2-5.4) 02/02/18 20:36 [place] # 0.5 K/mm3 (0.0-0.8) 02/02/18 20:36 Eos # 0.4 K/mm3 (0.0-0.4) 02/02/18 20:36 Baso # 0.0 K/mm3 (0.0-0.1) 02/02/18 20:36 Seg Neutrophils % 45.5 % (40.0-70.0) 02/02/18 20:36 Seg Neutrophils # 2.3 K/mm3 (1.8-7.7) 02/02/18 20:36 Sodium 141 mmol/L (137-145) 02/02/18 20:36 Potassium 4.3 mmol/L (3.6-5.0) 02/02/18 20:36 Chloride 102.0 mmol/L (98-107) 02/02/18 20:36 Carbon Dioxide 28 mmol/L (22-30) 02/02/18 20:36 Anion Gap 15 mmol/L 02/02/18 20:36 BUN 10 mg/dL (9-20) 02/02/18 20:36 Creatinine 0.8 mg/dL (0.8-1.5) 02/02/18 20:36 Estimated GFR > 60 ml/min 02/02/18 20:36 BUN/Creatinine Ratio 13 % 02/02/18 20:36 Glucose 87 mg/dL (75-100) 02/02/18 20:36 Calcium 9.3 mg/dL (8.4-10.2) 02/02/18 20:36 Total Bilirubin 0.50 mg/dL (0.1-1.2) 02/02/18 20:36 AST 25 units/L (5-40) 02/02/18 20:36 ALT 10 units/L (7-56) 02/02/18 20:36 Alkaline Phosphatase 67 units/L (35-129) 02/02/18 20:36 Total Protein 8.1 g/dL (6.3-8.2) 02/02/18 20:36 Albumin 4.3 g/dL (3.9-5) 02/02/18 20:36 Albumin/Globulin Ratio 1.1 % 02/02/18 20:36 TSH 0.769 mlU/mL (0.270-4.200) 02/02/18 20:36
[2018-02-03] MEDS ORDERED: ATAZANAVIR SULFATE PO SCH (15:00)
[2018-02-03] MEDS ORDERED: LAMIVUDINE PO SCH (15:00)
[2018-02-03] MEDS ORDERED: ABACAVIR SULFATE PO SCH (15:00)
[2018-02-03] MEDS ORDERED: PREZISTA PO SCH (15:00)
[2018-02-03] MEDS ORDERED: [UNRECOGNIZED DRUG - OTHER] PO SCH (15:00)
[2018-02-03] MEDS ORDERED: LIDODERM 5% TD SCH (15:00)
[2018-02-03] MEDS: DILANTIN PO SCH ×2 (16:50→22:02)
[2018-02-04] MEDS: DILANTIN PO SCH (05:33)
[2018-02-04 08:47] VITALS: BP 117/76
[2018-02-04] MEDS: ASPIRIN PO SCH (10:18)
--- NOTE | 2018-02-04 11:19 | Discharge Summary ---
Providers - Providers Date of Admission: 02/02/18 23:09 Date of discharge: 02/04/18 Attending physician: ILIANA SIMONS MD 02/03/18 06:12 Physical Therapy Evaluation and Treat [CONS] Routine Comment: Reason For Exam: LEFT SIDED WEAKNESS Primary care physician: ENGINE WIPER Hospitalization Reason for admission: left sided weakness Condition: Stable Disposition: DC-01 TO HOME OR SELFCARE Time spent for discharge: 31 minutes - Discharge Diagnoses (1) Chronic cerebrovascular accident (CVA) Status: Acute (2) HIV (human immunodeficiency virus infection) Status: Acute (3) Left-sided weakness Status: Acute (4) Seizure disorder Status: Acute Core Measure Documentation - Palliative Care Palliative Care/ Comfort Measures: Not Applicable - Core Measures Any of the following diagnoses?: history only (CVA) - Stroke Discharge Requirements Statin for LDL = or >70 mg/dl on DC: Yes Anticoag for atrial fib/atrial flutter: Not Applicable Antithrombotic for ischemic stroke: Yes Exam - Physical Exam Narrative exam: Not in cardiopulmonary distress. The patient appeared well nourished and normally developed. Vital signs as documented. Head exam is unremarkable. No scleral icterus . Neck is without jugular venous distension, thyromegaly, or carotid bruits. Lungs are clear to auscultation. Cardiac exam reveals regular rate and Rhythm. First and second heart sounds normal. No murmurs, rubs or gallops. Abdominal exam reveals normal bowel sounds, no masses, no organomegaly and no aortic enlargement. Extremities are nonedematous and both femoral and pedal pulses are normal. 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 No focal weakness. - Constitutional Vitals: Temp Pulse Resp BP Pulse Ox 98.0 F 62 18 117/76 100 02/04/18 08:00 02/04/18 10:58 02/04/18 08:00 02/04/18 08:00 02/04/18 08:00 Plan Activity: no restrictions Weight Bearing Status: Full Weight Bearing Diet: low cholesterol Additional Instructions: Follow up at [facility] in 1-2 weeks. Follow up with: PRIMARY CAREMD [Primary Care Provider] - 3-5 Days Prescriptions: Pravastatin [Pravachol] 40 mg PO QHS #30 tablet Aspirin 81 mg PO DAILY #30 tab.chew Phenytoin [Dilantin] 100 mg PO Q8HR #90 capsule.er
[2018-02-04] MEDS ORDERED: LIDODERM 5% TD SCH (15:00)
== END 2018-02-04 12:41 | disposition home or self-care (01) | DRG 100 ==
LOC: ED 14:44 → 4A 23:09
PROVIDERS: ADMIT Internal Medicine; ATTEND Internal Medicine
DX: G40.909 Epilepsy, unspecified, not intractable, without status epilepticus (principal); B20 Human immunodeficiency virus [HIV] disease; F32.9 Major depressive disorder, single episode, unspecified; F12.90 Cannabis use, unspecified, uncomplicated; I10 Essential (primary) hypertension; F17.200 Nicotine dependence, unspecified, uncomplicated; Z72.89 Other problems related to lifestyle; Z79.899 Other long term (current) drug therapy; Z91.14 Patient's other noncompliance with medication regimen
CPT/HCPCS: 36415; 70450; 70553; 80053; 84443; 85025; 93005; 93010; 93306; 93880; A9577; J2270; J2405

== ENCOUNTER 2018-02-27 22:20 | Emergency (ER) | payer SELFPAY ==
[2018-02-28 00:58] LABS: Basophils % (Auto) 0.2 % (0.0-1.8); Eosinophils # (Auto) 0.4 K/mm3 (0.0-0.4); Eosinophils % (Auto) 5.8 % (0.0-4.3); Hematocrit 40.6 % (35.5-45.6); Hemoglobin 13.5 gm/dl (11.8-15.2); Lymphocytes # (Auto) 1.8 K/mm3 (1.2-5.4); Lymphocytes % (Auto) 26.4 % (13.4-35.0); Mean Corpuscular HGB Conc 33 % (32-34); Mean Corpuscular Hemoglobin 30 pg (28-32); Mean Corpuscular Volume 90 fl (84-94); Monocytes # (Auto) 0.6 K/mm3 (0.0-0.8); Monocytes % (Auto) 9.5 % (0.0-7.3); Platelet Count 279 K/mm3 (140-440); Red Blood Count 4.51 M/mm3 (3.65-5.03); Red Cell Distribution Width 12.8 % (13.2-15.2)
[2018-02-28 01:20] LABS: BUN/Creatinine Ratio 9; Blood Urea Nitrogen 9 mg/dL (9-20); Calcium 8.6 mg/dL (8.4-10.2); Hemolysis Index 3
[2018-02-28 01:51] LABS: Bilirubin,Urine NEG (Negative); Blood,Urine NEG (Negative); Color,Urine Yellow (Yellow); Mucus,Urine FEW /HPF
[2018-02-28 09:02] VITALS: BP 111/77
[2018-02-28] MEDS ORDERED: TORADOL IM ONE (09:37)
[2018-02-28] MEDS ORDERED: ZITHROMAX PO ONE (09:37)
[2018-02-28] MEDS ORDERED: XYLOCAINE 1% MPF 5 mL INFILTRATI ONE (09:37)
[2018-02-28] MEDS ORDERED: ROCEPHIN IM ONE (09:37)
--- NOTE | 2018-02-28 09:56 | Emergency Department Report ---
ED Male HPI - General Chief complaint: Urogenital-Male Stated complaint: GROIN PAIN Time Seen by Provider: 02/28/18 09:11 Source: patient Mode of arrival: Ambulatory Limitations: No Limitations - History of Present Illness Initial comments: Patient is a 27-year-old male who is presenting with a week and a half of lymphadenopathy inguinal region. Patient states that his lymph nodes gotten rather large to the point where it hurts when he walks or when he bends over. Patient does also have some dysuria and penile discharge as well. Patient denies any fevers chills nausea vomiting diarrhea. Patient states he has not had any recent sexual partners. - Related Data Previous Rx's Medication Instructions Recorded Last Taken Type Ibuprofen [Motrin 400 MG tab] 400 mg PO Q8H PRN #10 tablet 09/11/16 09/25/16 Rx Abacavir Sulfate/Lamivudine 1 each PO DAILY #30 03/28/17 Unknown Rx [Epzicom TAB] Atazanavir Sulfate [Reyataz] 400 mg PO QDAY #30 03/28/17 Unknown Rx Darunavir [Prezista] 800 mg PO QDAY #30 tablet 03/28/17 Unknown Rx Elviteg/Nicole/Emtric/Tenofo Ala 1 tab PO QDAY #30 tablet 03/28/17 Unknown Rx [Genvoya (Nf)] Aspirin 81 mg PO DAILY #30 tab.chew 02/04/18 Unknown Rx Phenytoin [Dilantin] 100 mg PO Q8HR #90 capsule.er 02/04/18 Unknown Rx Pravastatin [Pravachol] 40 mg PO QHS #30 tablet 02/04/18 Unknown Rx Doxycycline [Vibramycin CAP] 100 mg PO Q12HR #20 capsule 02/28/18 Unknown Rx Ibuprofen [Motrin] 800 mg PO Q8HR PRN #20 tablet 02/28/18 Unknown Rx traMADol [Ultram] 50 mg PO Q6HR PRN #12 tablet 02/28/18 Unknown Rx Allergies Allergy/AdvReac Type Severity Reaction Status Date / Time Penicillins Allergy Unknown Verified 09/11/16 10:55 strawberry [[place]] Allergy Unknown Verified 01/26/14 22:42 ED Review of Systems ROS: Stated complaint: GROIN PAIN Other details as noted in HPI Comment: All other systems reviewed and negative ED Past Medical Hx - Past Medical History Previous Medical History?: No Hx Seizures: Yes Hx Psychiatric Treatment: Yes (depression/suicidal) Hx HIV: Yes - Surgical History Past Surgical History?: No - Social History Smoking Status: Never Smoker Substance Use Type: None - Medications Home Medications: Home Medications Medication Instructions Recorded Confirmed Last Taken Type Ibuprofen [Motrin 400 MG tab] 400 mg PO Q8H PRN #10 tablet 09/11/16 02/03/18 Rx Abacavir Sulfate/Lamivudine 1 each PO DAILY #30 03/28/17 02/03/18 Unknown Rx [Epzicom TAB] Atazanavir Sulfate [Reyataz] 400 mg PO QDAY #30 03/28/17 02/03/18 Unknown Rx Darunavir [Prezista] 800 mg PO QDAY #30 tablet 03/28/17 02/03/18 Unknown Rx Elviteg/Nicole/Emtric/Tenofo Ala 1 tab PO QDAY #30 tablet 03/28/17 02/03/18 Unknown Rx [Genvoya (Nf)] Aspirin 81 mg PO DAILY #30 tab.chew 02/04/18 Unknown Rx Phenytoin [Dilantin] 100 mg PO Q8HR #90 capsule.er 02/04/18 Unknown Rx Pravastatin [Pravachol] 40 mg PO QHS #30 tablet 02/04/18 Unknown Rx Doxycycline [Vibramycin CAP] 100 mg PO Q12HR #20 capsule 02/28/18 Unknown Rx Ibuprofen [Motrin] 800 mg PO Q8HR PRN #20 tablet 02/28/18 Unknown Rx traMADol [Ultram] 50 mg PO Q6HR PRN #12 tablet 02/28/18 Unknown Rx ED Physical Exam - General Limitations: No Limitations General appearance: alert, in no apparent distress - Head Head exam: Present: atraumatic, normocephalic - Eye Eye exam: Present: normal appearance - ENT ENT exam: Present: mucous membranes moist - Neck Neck exam: Present: normal inspection - Respiratory Respiratory exam: Present: normal lung sounds bilaterally. Absent: respiratory distress - Cardiovascular Cardiovascular Exam: Present: regular rate, normal rhythm. Absent: systolic murmur, diastolic murmur, rubs, gallop - GI/Abdominal GI/Abdominal exam: Present: soft, normal bowel sounds - Rectal Rectal exam: Present: deferred - exam: Absent: scrotal swelling External exam: Present: swelling (patient has bilateral large tender lymphadenopathy in the inguinal region. Left approximate 5 cm in diameter.) - Extremities Exam Extremities exam: Present: normal inspection - Back Exam Back exam: Present: normal inspection - Neurological Exam Neurological exam: Present: alert, oriented X3 - Psychiatric Psychiatric exam: Present: normal affect, normal mood - Skin Skin exam: Present: warm, dry, intact, normal color. Absent: rash ED Course Vital Signs 02/28/18 02/28/18 02/28/18 00:27 06:39 09:01 Temperature 99.3 F 98.4 F 98.6 F Pulse Rate 75 69 68 Respiratory 20 20 20 Rate Blood Pressure 108/72 117/78 Blood Pressure 111/77 [Right] O2 Sat by Pulse 99 99 100 Oximetry ED Medical Decision Making - Lab Data Result diagrams: 02/28/18 00:52 02/28/18 00:52 Lab Results 02/28/18 02/28/18 02/28/18 Range/Units 00:52 00:52 01:16 WBC 6.8 (4.5-11.0) K/mm3 RBC 4.51 (3.65-5.03) M/mm3 Hgb 13.5 (11.8-15.2) gm/dl Hct 40.6 (35.5-45.6) % MCV 90 (84-94) fl MCH 30 (28-32) pg MCHC 33 (32-34) % RDW 12.8 L (13.2-15.2) % Plt Count 279 (140-440) K/mm3 Lymph % (Auto) 26.4 (13.4-35.0) % [place] % (Auto) 9.5 H (0.0-7.3) % Eos % (Auto) 5.8 H (0.0-4.3) % Baso % (Auto) 0.2 (0.0-1.8) % Lymph # 1.8 (1.2-5.4) K/mm3 [place] # 0.6 (0.0-0.8) K/mm3 Eos # 0.4 (0.0-0.4) K/mm3 Baso # 0.0 (0.0-0.1) K/mm3 Seg Neutrophils % 58.1 (40.0-70.0) % Seg Neutrophils # 3.9 (1.8-7.7) K/mm3 Sodium 136 L (137-145) mmol/L Potassium 3.4 L (3.6-5.0) mmol/L Chloride 96.4 L (98-107) mmol/L Carbon Dioxide 28 (22-30) mmol/L Anion Gap 15 mmol/L BUN 9 (9-20) mg/dL Creatinine 1.0 (0.8-1.5) mg/dL Estimated GFR > 60 ml/min BUN/Creatinine Ratio 9 % Glucose 94 (75-100) mg/dL Calcium 8.6 (8.4-10.2) mg/dL Urine Color Yellow (Yellow) Urine Turbidity Clear (Clear) Urine pH 6.0 (5.0-7.0) Ur Specific [place] 1.019 (1.003-1.030) Urine Protein 30 mg/dl (Negative) mg/dL Urine Glucose (UA) Neg (Negative) mg/dL Urine Ketones Neg (Negative) mg/dL Urine Blood Neg (Negative) Urine Nitrite Neg (Negative) Urine Bilirubin Neg (Negative) Urine Urobilinogen 4.0 (<2.0) mg/dL Ur Leukocyte Esterase Tr (Negative) Urine WBC (Auto) 14.0 H (0.0-6.0) /HPF Urine RBC (Auto) 3.0 (0.0-6.0) /HPF U Epithel Cells (Auto) < 1.0 (0-13.0) /HPF Urine Mucus Few /HPF - Medical Decision Making Patient will be covered for gonorrhea and chlamydia. Patient does have significant lymphadenopathy and doxycycline will be started on this patient as well. Patient will be referred to urology for continued follow-up. Critical care attestation.: If time is entered above; I have spent that time in minutes in the direct care of this critically ill patient, excluding procedure time. ED Disposition Clinical Impression: Urethritis, Lymphadenitis, acute, HIV (human immunodeficiency virus infection) Disposition: DC-01 TO HOME OR SELFCARE Is pt being admited?: No Does the pt Need Aspirin: No Condition: Stable Instructions: Nonspecific Urethritis in Men (ED), Lymphadenopathy (ED) Referrals: CHRISTOPHER MAN MD [Staff Physician] - 3-5 Days Forms: STI Treatment and Prevention
== END 2018-02-28 10:31 | disposition home or self-care (01) ==
LOC: ED 22:20
DX: L04.9 Acute lymphadenitis, unspecified (principal); N34.2 Other urethritis; Z88.0 Allergy status to penicillin; Z91.018 Allergy to other foods; Z79.82 Long term (current) use of aspirin; F32.9 Major depressive disorder, single episode, unspecified
CPT/HCPCS: 36415; 80048; 81001; 85025; 96372; 99283; J0696; J1885

== ENCOUNTER 2018-04-26 10:52 | Emergency (ER) | payer OTHER ==
[2018-04-26 11:33] VITALS: BP 120/81
[2018-04-26] MEDS ORDERED: MOTRIN PO ONE (15:03)
--- NOTE | 2018-04-26 15:39 | XRay Report ---
AP AND LATERAL LUMBOSACRAL SPINE: History: Low back pain. The vertebral bodies are well mineralized and normal in alignment and vertebral height with well preserved interspace distances. The visualized portions of the posterior elements are normal. IMPRESSION: Lumbar spine within normal limits.
--- NOTE | 2018-04-26 15:41 | XRay Report ---
AP AND LATERAL CERVICAL SPINE: History: Neck pain. There is suggestion of mild dextrocurvature of the lower cervical region. There is normal height and alignment of the vertebral bodies otherwise. No evidence for fracture, subluxation or bone lesion. No significant degenerative changes. IMPRESSION: Minimal scoliosis.
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
== END 2018-04-26 17:03 | disposition home or self-care (01) ==
LOC: ED 10:52
DX: S39.012A Strain of muscle, fascia and tendon of lower back, initial encounter (principal); S13.4XXA Sprain of ligaments of cervical spine, initial encounter; F32.9 Major depressive disorder, single episode, unspecified; F12.90 Cannabis use, unspecified, uncomplicated; Z79.82 Long term (current) use of aspirin; Z88.0 Allergy status to penicillin; Z91.018 Allergy to other foods; V49.19XA Passenger injured in collision with other motor vehicles in nontraffic accident, initial encounter; Y93.89 Activity, other specified; Y99.8 Other external cause status; Y92.488 Other paved roadways as the place of occurrence of the external cause
CPT/HCPCS: 72040; 72100

== ENCOUNTER 2019-11-15 23:15 | Emergency (ER) | payer SELFPAY ==
[2019-11-15 23:59] VITALS: BP 131/88
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
== END 2019-11-16 02:35 | disposition home or self-care (01) ==
LOC: ED 23:15
DX: S39.012A Strain of muscle, fascia and tendon of lower back, initial encounter (principal); S09.90XA Unspecified injury of head, initial encounter; S80.12XA Contusion of left lower leg, initial encounter; I10 Essential (primary) hypertension; F17.200 Nicotine dependence, unspecified, uncomplicated; F12.10 Cannabis abuse, uncomplicated; Z79.899 Other long term (current) drug therapy; V89.2XXA Person injured in unspecified motor-vehicle accident, traffic, initial encounter; Y93.89 Activity, other specified; Y92.410 Unspecified street and highway as the place of occurrence of the external cause; Y99.8 Other external cause status
CPT/HCPCS: 70450

== ENCOUNTER 2020-07-31 11:23 | Emergency (ER) | payer SELFPAY ==
[2020-07-31 11:37] VITALS: BP 127/88
--- NOTE | 2020-07-31 11:53 | Event Note ---
ED Screening Note ED Screening Note: pt states he has been having headache that began 2 months ago has not seen a PCP has had these for years now states he has a hx of epilepsy states he sees a neurologist at [facility] states also has multiple lumps around the anus which he noticed this morning he does have a history of hemorrhoids states he also has itching This initial assessment/diagnostic orders/clinical plan/treatment(s) is/are subject to change based on patients health status, clinical progression and re- assessment by fellow clinical providers in the ED. Further treatment and workup at subsequent clinical providers discretion. Patient/guardian urged not to elope from the ED as their condition may be serious if not clinically assessed and managed. Initial orders include: ACC eval
[2020-07-31] MEDS ORDERED: SODIUM CHLORIDE 0.9% 1000 ML 1,000 ML IV ONE (12:31)
[2020-07-31] MEDS ORDERED: KETOROLAC 30 MG/1 ML INJ IV ONE (12:31)
[2020-07-31] MEDS ORDERED: dexAMETHasone 20 MG/5 ML VIAL IV ONE (12:31)
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
--- NOTE | 2020-07-31 13:03 | Cat Scan Report ---
CT BRAIN: 07/31/2020 INDICATION / CLINICAL INFORMATION: Headaches. COMPARISON: 11/16/2019 FINDINGS: BRAIN/INTRACRANIAL STRUCTURES: Unenhanced CT images of the brain demonstrate no evidence of acute int racranial abnormality. Ventricles and sulci are slightly prominent in size for a patient of this age, consistent with some u nderlying diffuse cerebral atrophy. There is no CT evidence of acute ischemic injury, hemorrhage, or mass. There are no abnormal extra-ax ial fluid collections. EXTRACRANIAL STRUCTURES: Unremarkable. IMPRESSION: No acute abnormality. Cerebral atrophy. No significant change when compared to 11/16/2019. All CT scans at this location are performed using dose reduction to ALARA by means of automated expos ure control. Signer Name: Britton Stanley MD Signed: 07/31/2020 12:58 PM Workstation Name: [id number]
[2020-07-31 13:15] LABS: Basophils % (Auto) 0.6 % (0.0-1.8); Eosinophils # (Auto) 0.3 K/mm3 (0.0-0.4); Eosinophils % (Auto) 7.3 % (0.0-4.3); Hematocrit 40.4 % (35.5-45.6); Hemoglobin 14.2 gm/dl (11.8-15.2); Lymphocytes # (Auto) 1.5 K/mm3 (1.2-5.4); Lymphocytes % (Auto) 35.5 % (13.4-35.0); Mean Corpuscular HGB Conc 35 % (32-34); Mean Corpuscular Volume 92 fl (84-94); Monocytes # (Auto) 0.3 K/mm3 (0.0-0.8); Monocytes % (Auto) 7.3 % (0.0-7.3); Platelet Count 180 K/mm3 (140-440); Red Blood Count 4.38 M/mm3 (3.65-5.03); Red Cell Distribution Width 12.2 % (13.2-15.2)
[2020-07-31 13:40] LABS: Alanine Aminotransferase 8 units/L (7-56); Albumin 4.1 g/dL (3.9-5); BUN/Creatinine Ratio 9; Blood Urea Nitrogen 10 mg/dL (9-20); Calcium 8.7 mg/dL (8.4-10.2); Hemolysis Index 7
== END 2020-07-31 14:41 | disposition home or self-care (01) ==
LOC: ED 11:23
DX: A63.0 Anogenital (venereal) warts (principal); R20.0 Anesthesia of skin; G43.909 Migraine, unspecified, not intractable, without status migrainosus; I10 Essential (primary) hypertension; G40.909 Epilepsy, unspecified, not intractable, without status epilepticus; F32.9 Major depressive disorder, single episode, unspecified; F12.10 Cannabis abuse, uncomplicated; Z79.899 Other long term (current) drug therapy; Z21 Asymptomatic human immunodeficiency virus [HIV] infection status; Z88.0 Allergy status to penicillin; Z88.8 Allergy status to other drugs, medicaments and biological substances
CPT/HCPCS: 36415; 70450; 80053; 85025; 96361; 96374; 96375; 99284; J1100; J1885; J7030

== ENCOUNTER 2020-11-29 17:54 | Inpatient (IN) | payer OTHER ==
--- NOTE | 2020-11-29 20:53 | Emergency Department Report ---
ED Psych HPI - General Chief Complaint: Medical Clearance Stated Complaint: MENTAL HEALTH Time Seen by Provider: 11/29/20 20:39 Source: patient, family, EMS Mode of arrival: Ambulatory - History of Present Illness Initial Comments: Patient is 30 years old male with history of HIV, seizure and depression. Patient brought to the emergency room accompanied by his brother. Brother stated that he has been acting really weird recently. He stated that he is talking gibberish and he just kept repeating himself. Brother stated that this is been going on for 3 days. He stated that he recently graduated from college with good grades. Brother also added that patient does smoke marijuana but he is not sure if he got something in it. He stated that he never had any issue like this before. Patient is quite and watching a video on his iPhone and when I started to talk to him he started just kept saying am hurting all over and having vomiting and having something not coding me. Patient is not making sense. When asked him about suicidal ideation he refused to answer. Patient is obviously responding to internal stimuli. MD Complaint: altered mental status - Related Data Previous Rx's Medication Instructions Recorded Last Taken Type Ibuprofen [Motrin 400 MG tab] 400 mg PO Q8H PRN #10 tablet 09/11/16 09/25/16 Rx Abacavir Sulfate/Lamivudine 1 each PO DAILY #30 03/28/17 Unknown Rx [Epzicom TAB] Atazanavir Sulfate [Reyataz] 400 mg PO QDAY #30 03/28/17 Unknown Rx Darunavir [Prezista] 800 mg PO QDAY #30 tablet 03/28/17 Unknown Rx Elviteg/Nicole/Emtric/Tenofo Ala 1 tab PO QDAY #30 tablet 03/28/17 Unknown Rx [Genvoya (Nf)] Aspirin 81 mg PO DAILY #30 tab.chew 02/04/18 Unknown Rx Phenytoin [Dilantin] 100 mg PO Q8HR #90 capsule.er 02/04/18 Unknown Rx Pravastatin [Pravachol] 40 mg PO QHS #30 tablet 02/04/18 Unknown Rx DOXYCYCLINE Hyclate [Vibramycin 100 mg PO Q12HR #20 capsule 02/28/18 Unknown Rx CAP] Ibuprofen [Motrin] 800 mg PO Q8HR PRN #20 tablet 02/28/18 Unknown Rx traMADoL [Ultram] 50 mg PO Q6HR PRN #12 tablet 02/28/18 Unknown Rx Ibuprofen [Motrin] 600 mg PO Q8H PRN #30 tablet 04/26/18 Unknown Rx methOCARBAMOL [Robaxin TAB] 500 mg PO QHS #10 tab 04/26/18 Unknown Rx Dicyclomine [Bentyl] 10 mg PO BID #20 capsule 10/03/18 Unknown Rx Ondansetron (Nf) [Zofran TAB] 8 mg PO Q8HR PRN #20 tablet 10/03/18 Unknown Rx Naproxen [Naprosyn] 500 mg PO BID #20 tablet 11/16/19 Unknown Rx Imiquimod [Aldara 5%] 1 each TP 3XW #60 cream.pack 07/31/20 Unknown Rx Allergies Allergy/AdvReac Type Severity Reaction Status Date / Time Penicillins Allergy Unknown Verified 07/31/20 11:34 strawberry [[place]] Allergy Unknown Verified 07/31/20 11:34 ED Review of Systems ROS: Stated complaint: MENTAL HEALTH Other details as noted in HPI Comment: All other systems reviewed and negative Constitutional: denies: chills, fever Respiratory: denies: cough, shortness of breath, SOB with exertion Cardiovascular: denies: chest pain, palpitations Gastrointestinal: denies: abdominal pain, nausea, vomiting Psychiatric: auditory hallucinations ED Past Medical Hx - Past Medical History Hx Hypertension: Yes Hx Seizures: Yes Hx Psychiatric Treatment: Yes (depression/suicidal) Hx HIV: Yes Additional medical history: Epilepsy - Social History Smoking Status: Never Smoker Substance Use Type: Marijuana - Medications Home Medications: Home Medications Medication Instructions Recorded Confirmed Last Taken Type Ibuprofen [Motrin 400 MG tab] 400 mg PO Q8H PRN #10 tablet 09/11/16 02/03/18 09/25/16 Rx Abacavir Sulfate/Lamivudine 1 each PO DAILY #30 03/28/17 02/03/18 Unknown Rx [Epzicom TAB] Atazanavir Sulfate [Reyataz] 400 mg PO QDAY #30 03/28/17 02/03/18 Unknown Rx Darunavir [Prezista] 800 mg PO QDAY #30 tablet 03/28/17 02/03/18 Unknown Rx Elviteg/Nicole/Emtric/Tenofo Ala 1 tab PO QDAY #30 tablet 03/28/17 02/03/18 Unknown Rx [Genvoya (Nf)] Aspirin 81 mg PO DAILY #30 tab.chew 02/04/18 Unknown Rx Phenytoin [Dilantin] 100 mg PO Q8HR #90 capsule.er 02/04/18 Unknown Rx Pravastatin [Pravachol] 40 mg PO QHS #30 tablet 02/04/18 Unknown Rx DOXYCYCLINE Hyclate [Vibramycin 100 mg PO Q12HR #20 capsule 02/28/18 Unknown Rx CAP] Ibuprofen [Motrin] 800 mg PO Q8HR PRN #20 tablet 02/28/18 Unknown Rx traMADoL [Ultram] 50 mg PO Q6HR PRN #12 tablet 02/28/18 Unknown Rx Ibuprofen [Motrin] 600 mg PO Q8H PRN #30 tablet 04/26/18 Unknown Rx methOCARBAMOL [Robaxin TAB] 500 mg PO QHS #10 tab 04/26/18 Unknown Rx Dicyclomine [Bentyl] 10 mg PO BID #20 capsule 10/03/18 Unknown Rx Ondansetron (Nf) [Zofran TAB] 8 mg PO Q8HR PRN #20 tablet 10/03/18 Unknown Rx Naproxen [Naprosyn] 500 mg PO BID #20 tablet 11/16/19 Unknown Rx Imiquimod [Aldara 5%] 1 each TP 3XW #60 cream.pack 07/31/20 Unknown Rx ED Physical Exam - General Limitations: Other General appearance: alert, in no apparent distress - Head Head exam: Present: atraumatic, normocephalic, normal inspection - Eye Eye exam: Present: normal appearance, PERRL - ENT ENT exam: Present: normal exam, normal orophraynx, mucous membranes moist - Neck Neck exam: Present: normal inspection, full ROM. Absent: tenderness, meningismus - Respiratory Respiratory exam: Present: normal lung sounds bilaterally - Cardiovascular Cardiovascular Exam: Present: regular rate, normal rhythm, normal heart sounds - GI/Abdominal GI/Abdominal exam: Present: soft, normal bowel sounds. Absent: distended, t enderness, guarding, rebound, rigid, organomegaly, mass, bruit, pulsatile mass, hernia - Extremities Exam Extremities exam: Present: normal inspection, full ROM, normal capillary refill. Absent: tenderness - Back Exam Back exam: Present: normal inspection, full ROM. Absent: CVA tenderness (R), CVA tenderness (L) - Neurological Exam Neurological exam: Present: alert, altered - Psychiatric Psychiatric exam: Present: flat affect - Skin Skin exam: Present: warm, intact, normal color ED Course Vital Signs 11/29/20 11/29/20 18:10 20:53 Temperature 98.3 F 98.1 F Pulse Rate 74 68 Respiratory 18 13 Rate Blood Pressure 130/80 Blood Pressure 137/92 [Right] O2 Sat by Pulse 100 100 Oximetry ED Medical Decision Making - Lab Data Result diagrams: 11/29/20 20:51 11/29/20 20:51 - Medical Decision Making Patient is 30 years old male with history of HIV, seizure and depression. Patient brought to the emergency room accompanied by his brother. Brother stated that he has been acting really weird recently. He stated that he is talking gibberish and he just kept repeating himself. Brother stated that this is been going on for 3 days. He stated that he recently graduated from college with good grades. Brother also added that patient does smoke marijuana but he is not sure if he got something in it. He stated that he never had any issue like this before. Patient is quite and watching a video on his iPhone and when I started to talk to him he started just kept saying am hurting all over and having vomiting and having something not coding me. Patient is not making sense. When asked him about suicidal ideation he refused to answer. Patient is obviously responding to internal stimuli. Labs reviewed and is unremarkable except for positive for marijuana on the UDS. Patient is medically clear to be evaluated by psychiatric team. Critical care attestation.: If time is entered above; I have spent that time in minutes in the direct care of this critically ill patient, excluding procedure time. ED Disposition Clinical Impression: Acute psychosis Disposition: DC/TX-65 PSY HOSP/PSY UNIT Is pt being admited?: No Condition: Stable Referrals: PRIMARY CARE, [Primary Care Provider] - 3-5 Days
[2020-11-29 21:05] LABS: Basophils % (Auto) 0.5 % (0.0-1.8); Eosinophils # (Auto) 0.2 K/mm3 (0.0-0.4); Eosinophils % (Auto) 3.6 % (0.0-4.3); Hemoglobin 14.6 gm/dl (11.8-15.2); Lymphocytes # (Auto) 1.5 K/mm3 (1.2-5.4); Lymphocytes % (Auto) 28.4 % (13.4-35.0); Mean Corpuscular HGB Conc 34 % (32-34); Mean Corpuscular Volume 94 fl (84-94); Monocytes # (Auto) 0.3 K/mm3 (0.0-0.8); Monocytes % (Auto) 6.6 % (0.0-7.3); Platelet Count 212 K/mm3 (140-440); Red Blood Count 4.59 M/mm3 (3.65-5.03)
[2020-11-29 21:23] LABS: BUN/Creatinine Ratio 9; Blood Urea Nitrogen 9 mg/dL (9-20); Calcium 8.9 mg/dL (8.4-10.2); Hemolysis Index 12
[2020-11-29 22:47] LABS: Amphetamine Screen,Urine PRESUMPTIVE NEGATIVE; Benzodiazepines Screen,Urine PRESUMPTIVE NEGATIVE; Cannabinoid Screen,Urine PRESUMPTIVE POSITIVE; Cocaine Screen,Urine PRESUMPTIVE NEGATIVE; Methadone Screen,Urine PRESUMPTIVE NEGATIVE; Opiate Screen,Urine PRESUMPTIVE NEGATIVE
[2020-11-29 22:59] LABS: Bilirubin,Urine NEG (Negative); Blood,Urine SM (Negative); Color,Urine Yellow (Yellow); Protein,Urine <15 mg/dL mg/dL (Negative); Urobilinogen,Urine < 2.0 mg/dL (<2.0)
[2020-11-30] MEDS ORDERED: ZIPRASIDONE MESYLATE 20 MG VIAL IM ONE (09:45)
--- NOTE | 2020-11-30 10:08 | Consultation ---
History of Present Illness - Reason for Consult Consult date: 11/30/20 Reason for consult: MHE Requesting physician: AMRIT FRAGOSO - History of Present Psychiatric Illness Per ED Provider: Patient is 30 years old male with history of HIV, seizure and depression. Patient brought to the emergency room accompanied by his brother. Brother stated that he has been acting really weird recently. He stated that he is talking gibberish and he just kept repeating himself. Brother stated that this is been going on for 3 days. He stated that he recently graduated from college with good grades. Brother also added that patient does smoke marijuana but he is not sure if he got something in it. He stated that he never had any issue like this before. Patient is quite and watching a video on his iPhone and when I started to talk to him he started just kept saying am hurting all over and having vomiting and having something not coding me. Patient is not making sense. When asked him about suicidal ideation he refused to answer. Patient is obviously responding to internal stimuli. PSYCH HPI Patient is a 30 year old Carlotta Male with PMhx of Seizure, HIV and dep ression brought to the ED for change in mental status with aggression. Unable to obtain HPI from patient due to acuity of his mental status. Per Brother, he reports patient has been doing good both in school and socially without any prior similar incident but has been displaying confusion within the past 3 days and making non sensible verbal statements. PAST PSYCHIATRIC HISTORY Diagnoses: depression Suicide attempts or Self-harm behavior: n/a Prior psychiatric hospitalizations: n/a Substance Abuse history: n/a Previous psychiatric medications tried: Outpatient treatment: PAST MEDICAL HISTORY: Family Psychiatric History: None reported or documented SOCIAL HISTORY Marital Status: single Living Arrangements: with family Employment Status: Access to guns/weapons: Education: college History of Abuse: none reported Legal History: n/a REVIEW OF SYSTEMS ROS cannot be reliably obtained from the patient due to his confusion MENTAL STATUS EXAMINATION General Appearance and Behavior: Age appropriate, good hygiene, not wearing appropriate clothes, good eye contact, cooperative polite with questioning. Cooperation: Participating/engaged Psychomotor Behavior: Psychomotor agitation Mood: na Affect and affective range: euthymic, euphoric Thought Process:Circumstantial, Illogical, Thought Content: Flight of ideas, Illogical, Grandiose, Speech: pressured, loud volume at times Intellectual Functioning: Average Suicidal Ideation: n/a Homicidal Ideation: n/a Impulse Control: Impaired Insight and Judgment: Limited insight and judgment Memory: Normal, Attention: Divided attention impaired Orientation: Alert, oriented, Assessment and Plan - Psychiatric problem (1) Unspecified mood [affective] disorder Current Visit: Yes Status: Acute F39 Treatment Plan RECOMMENDS CLEARANCE BY NEURO AT THIS TIME. MEDICATIONS: Risks, benefits and alternatives of medications discussed with the patient, questions answered and consent obtained from patient. PSYCHOTHERAPY: Supportive psychotherapy provided MEDICAL: Per primary team DELIRIUM PRECAUTIONS: Please re-orient patient frequently, keep lights on during the day, and minimize benzodiazepines and opiates as these medications could worsen patient's confusion. BUYERS' AGENT: DISPOSITION: Do Not Recommend acute inpatient psychiatric hospitalization at this time unless patient is cleared by Neuro. Case discussed with Dr. Pineda who agrees with current disposition LEGAL STATUS: FOLLOW-UP: Will see post neuro evaluation and clearance. Thank you for the consult. Please contact with any questions and/or concerns. Medications and Allergies Allergies Allergy/AdvReac Type Severity Reaction Status Date / Time Penicillins Allergy Unknown Verified 07/31/20 11:34 strawberry [[place]] Allergy Unknown Verified 07/31/20 11:34 Home Medications Medication Instructions Recorded Confirmed Last Taken Type Ibuprofen [Motrin 400 MG tab] 400 mg PO Q8H PRN #10 tablet 09/11/16 02/03/18 09/25/16 Rx Abacavir Sulfate/Lamivudine 1 each PO DAILY #30 03/28/17 02/03/18 Unknown Rx [Epzicom TAB] Atazanavir Sulfate [Reyataz] 400 mg PO QDAY #30 03/28/17 02/03/18 Unknown Rx Darunavir [Prezista] 800 mg PO QDAY #30 tablet 03/28/17 02/03/18 Unknown Rx Elviteg/Nicole/Emtric/Tenofo Ala 1 tab PO QDAY #30 tablet 03/28/17 02/03/18 Unknown Rx [Genvoya (Nf)] Aspirin 81 mg PO DAILY #30 tab.chew 02/04/18 Unknown Rx Phenytoin [Dilantin] 100 mg PO Q8HR #90 capsule.er 02/04/18 Unknown Rx Pravastatin [Pravachol] 40 mg PO QHS #30 tablet 02/04/18 Unknown Rx DOXYCYCLINE Hyclate [Vibramycin 100 mg PO Q12HR #20 capsule 02/28/18 Unknown Rx CAP] Ibuprofen [Motrin] 800 mg PO Q8HR PRN #20 tablet 02/28/18 Unknown Rx traMADoL [Ultram] 50 mg PO Q6HR PRN #12 tablet 02/28/18 Unknown Rx Ibuprofen [Motrin] 600 mg PO Q8H PRN #30 tablet 04/26/18 Unknown Rx methOCARBAMOL [Robaxin TAB] 500 mg PO QHS #10 tab 04/26/18 Unknown Rx Dicyclomine [Bentyl] 10 mg PO BID #20 capsule 10/03/18 Unknown Rx Ondansetron (Nf) [Zofran TAB] 8 mg PO Q8HR PRN #20 tablet 10/03/18 Unknown Rx Naproxen [Naprosyn] 500 mg PO BID #20 tablet 11/16/19 Unknown Rx Imiquimod [Aldara 5%] 1 each TP 3XW #60 cream.pack 07/31/20 Unknown Rx Mental Status Exam - Vital signs Last Vital Signs Temp 98 F 11/30/20 02:08 Pulse 72 11/30/20 02:08 Resp 16 11/30/20 02:08 BP 122/74 11/30/20 02:08 Pulse Ox 100 11/30/20 02:08 Results Result Diagrams: 11/29/20 20:51 11/29/20 20:51 Abnormal lab results 11/29/20 11/29/20 11/29/20 Range/Units 20:51 20:51 20:51 RDW 13.0 L (13.2-15.2) % Salicylates < 0.3 L (2.8-20.0) mg/dL Acetaminophen 5.0 L (10.0-30.0) ug/mL Valproic Acid < 2.8 L (50-100) ug/mL All other labs normal. Assessment and Plan - Psychiatric problem (1) Unspecified mood [affective] disorder Current Visit: Yes Status: Acute
--- NOTE | 2020-11-30 14:40 | Cat Scan Report ---
CT head/brain wo con INDICATION: Altered mental status. TECHNIQUE: Routine CT head without contrast. All CT scans at this location are performed using CT dos e reduction for ALARA by means of automated exposure control. COMPARISON: None. FINDINGS: BRAIN / INTRACRANIAL CONTENTS: There is abnormal hypoattenuation in the left parietal mid to low conv exity cortex and subjacent white matter. There is no hemorrhage or adverse mass effect. There is stab le mild global cerebral atrophy greater than expected for the patient's age. There is no hydrocephalu s or midline shift. ORBITS: No significant abnormality of visualized orbits. SINUSES / MASTOIDS: No significant abnormality of visualized sinuses and mastoid air cells. ADDITIONAL FINDINGS: None. IMPRESSION: 1. Subacute appearing infarct in the left parietal mid to low convexity, new since the prior exam. Signer Name: Abhishek Ramirez MD Signed: 11/30/2020 2:35 PM Workstation Name: [id number]
[2020-11-30] MEDS ORDERED: ASPIRIN 325 MG TAB PO ONE (15:10)
--- NOTE | 2020-11-30 15:13 | Consultation ---
History of Present Illness History of present illness: [place] [facility] Consult Note # Demographics Consult Type: ED Teleneuro First Name: Leonardo Last Name: Vasyl Date of : 1990 Age: 30 Gender: male Time of initial page (): 11-30-2020, 12:50 Time of return call ([facility] ): 11-30-2020, 12:51 # HPI Chief Complaint: altered mental state, stroke (subacute) Additional History: 30M with HIV, seizures, possible prior strokes presents with "abdnormal behavior". Mumbling to himself, repetitive. CT head done as part of work-up shows a stroke in the left parietal region. LKWT about 3 days prior when he first started mumbling to himself. # Scores Time of exam and NIHSS ([facility] ): 11-30-2020, 14:53:00 Level of Consciousness 1a: [0] = Alert; keenly responsive LOC Questions 1b: [2] = Answers neither correctly LOC Commands 1c: [0] = Performs both tasks correctly Best Gaze 2: [0] = Normal Visual 3: [0] = No visual loss Facial Palsy 4: [0] = Normal symmetrical movements Motor Arm Left 5a: [0] = No drift Motor Arm Right 5b: [0] = No drift Motor Leg Left 6a: [2] = Some effort against gravity Motor Leg Right 6b: [2] = Some effort against gravity Limb Ataxia 7: [0] = Absent Sensory 8: [1] = Yhzg-[id number] sensory loss Best Language 9: [1] = Xmea-hf-gywwohko aphasia Dysarthria 10: [0] = Normal Extinction and Inattention 11: [0] = No abnormality NIHSS Total: 8 # Data Time Head CT personally ready by me (): 11-30-2020, 14:58:[address]: per radiologist read, subacute ischemic stroke, in the left posterior MCA territory # Assessment Impression: Ischemic Stroke (Subacute) # Plan Thrombolytic/Intervention: NOT IV Alteplase or IA Intervention Alteplase Exclusion: > 4.5 hours Intraarterial Exclusion: unfavorable imaging/hypodensity Blood Pressure Target: SBP < 220, DBP < 105 Labs: hemoglobin A1c, lipid panel, HIV PCR, CD4 count Imaging: (urgency: routine admission): MR Angiogram Head without contrast, MR Angiogram Neck with contrast, MRI Brain without contrast Diagnostic Test: echo with bubble study, lumbar puncture: cell count, protein, glucose, send CSF for HIV PCR, VZV, HSV Therapy/Evaluation: PT/OT evaluation, speech/swallow consultation Medication: ASA 325, atorvastatin 80 DVT Prophylaxis: SCD Other: LDL < 70, telemetry monitoring, I have discussed my recommendations with the referring provider Disposition: admit # Logistics Telemedicine: Interactive 2 way audio and visual telecommunication technology was utilized during this visit Medications and Allergies Allergies Allergy/AdvReac Type Severity Reaction Status Date / Time Penicillins Allergy Unknown Verified 07/31/20 11:34 strawberry [[place]] Allergy Unknown Verified 07/31/20 11:34 Home Medications Medication Instructions Recorded Confirmed Last Taken Type Ibuprofen [Motrin 400 MG tab] 400 mg PO Q8H PRN #10 tablet 09/11/16 02/03/18 09/25/16 Rx Abacavir Sulfate/Lamivudine 1 each PO DAILY #30 03/28/17 02/03/18 Unknown Rx [Epzicom TAB] Atazanavir Sulfate [Reyataz] 400 mg PO QDAY #30 03/28/17 02/03/18 Unknown Rx Darunavir [Prezista] 800 mg PO QDAY #30 tablet 03/28/17 02/03/18 Unknown Rx Elviteg/Nicole/Emtric/Tenofo Ala 1 tab PO QDAY #30 tablet 03/28/17 02/03/18 Unknown Rx [Genvoya (Nf)] Aspirin 81 mg PO DAILY #30 tab.chew 02/04/18 Unknown Rx Phenytoin [Dilantin] 100 mg PO Q8HR #90 capsule.er 02/04/18 Unknown Rx Pravastatin [Pravachol] 40 mg PO QHS #30 tablet 02/04/18 Unknown Rx DOXYCYCLINE Hyclate [Vibramycin 100 mg PO Q12HR #20 capsule 02/28/18 Unknown Rx CAP] Ibuprofen [Motrin] 800 mg PO Q8HR PRN #20 tablet 02/28/18 Unknown Rx traMADoL [Ultram] 50 mg PO Q6HR PRN #12 tablet 02/28/18 Unknown Rx Ibuprofen [Motrin] 600 mg PO Q8H PRN #30 tablet 04/26/18 Unknown Rx methOCARBAMOL [Robaxin TAB] 500 mg PO QHS #10 tab 04/26/18 Unknown Rx Dicyclomine [Bentyl] 10 mg PO BID #20 capsule 10/03/18 Unknown Rx Ondansetron (Nf) [Zofran TAB] 8 mg PO Q8HR PRN #20 tablet 10/03/18 Unknown Rx Naproxen [Naprosyn] 500 mg PO BID #20 tablet 11/16/19 Unknown Rx Imiquimod [Aldara 5%] 1 each TP 3XW #60 cream.pack 07/31/20 Unknown Rx Active Meds: Active Medications Atorvastatin Calcium (Atorvastatin 40 Mg Tab) 40 mg PO QHS [facility] Physical Examination - Vital Signs Vital Signs: Vital Signs Temp Pulse Resp BP Pulse Ox 98.3 F 74 18 130/80 100 11/29/20 18:10 11/29/20 18:10 11/29/20 18:10 11/29/20 18:10 11/29/20 18:10 Results - Laboratory Findings CBC and BMP: 11/29/20 20:51 11/29/20 20:51 Abnormal Lab Findings: Abnormal Labs 11/29/20 11/29/20 11/29/20 20:51 20:51 20:51 RDW 13.0 L Salicylates < 0.3 L Acetaminophen 5.0 L Valproic Acid < 2.8 L
--- NOTE | 2020-11-30 15:41 | History and Physical Report ---
History of Present Illness Chief complaint: He is just mumbling to himself History of present illness: 30 YO Male with HIV,Seizure Disorder, Depression presents to ED for evaluation. Patient is cognitively impaired and is unable to provide history at the time of my evaluation. Patient history provided by EMS staff, ED staff as well as the patient brother who is at bedside during exam and interview. As per brother the patient has been "acting weird and mumbling to himself" over the past 1 week with increasingly worsening symptoms over the past 3 days. EMS was notified and upon arrival the patient was found to be in distress and subsequently transported to [facility] for further care and evaluation. Patient seen and evaluated in the emergency department. All lab and imaging studies reviewed. Patient underwent CT scan and was found to have a left frontoparietal infarct. A code stroke was called. The patient was placed in observation status and initiated on stroke protocol. No further history is obtainable. Prior admission on 02/02/2018 reviewed. All medication listed at time of admission has been karen nciled. Mental health consulted. Patient deemed not a candidate for inpatient psychiatric care. Past History Past Medical History: HIV/AIDS, hypertension, hyperlipidemia, other (See HPI) Past Surgical History: No surgical history, Other (Reviewed) Social history: single Family history: hypertension Medications and Allergies Allergies Allergy/AdvReac Type Severity Reaction Status Date / Time Penicillins Allergy Unknown Verified 07/31/20 11:34 strawberry [[place]] Allergy Unknown Verified 07/31/20 11:34 Home Medications Medication Instructions Recorded Confirmed Last Taken Type Ibuprofen [Motrin 400 MG tab] 400 mg PO Q8H PRN #10 tablet 09/11/16 11/30/20 09/25/16 Rx Abacavir Sulfate/Lamivudine 1 each PO DAILY #30 03/28/17 11/30/20 Unknown Rx [Epzicom TAB] Atazanavir Sulfate [Reyataz] 400 mg PO QDAY #30 03/28/17 11/30/20 Unknown Rx Darunavir [Prezista] 800 mg PO QDAY #30 tablet 03/28/17 11/30/20 Unknown Rx Elviteg/Nicole/Emtric/Tenofo Ala 1 tab PO QDAY #30 tablet 03/28/17 11/30/20 Unknown Rx [Genvoya (Nf)] Aspirin 81 mg PO DAILY #30 tab.chew 05/27/18 03/22/21 Unknown Rx Phenytoin [Dilantin] 100 mg PO Q8HR #90 capsule.er 02/04/18 11/30/20 Unknown Rx Pravastatin [Pravachol] 40 mg PO QHS #30 tablet 02/04/18 11/30/20 Unknown Rx DOXYCYCLINE Hyclate [Vibramycin 100 mg PO Q12HR #20 capsule 02/28/18 11/30/20 Unknown Rx CAP] Ibuprofen [Motrin] 800 mg PO Q8HR PRN #20 tablet 02/28/18 11/30/20 Unknown Rx traMADoL [Ultram] 50 mg PO Q6HR PRN #12 tablet 02/28/18 11/30/20 Unknown Rx Ibuprofen [Motrin] 600 mg PO Q8H PRN #30 tablet 04/26/18 11/30/20 Unknown Rx methOCARBAMOL [Robaxin TAB] 500 mg PO QHS #10 tab 04/26/18 11/30/20 Unknown Rx Dicyclomine [Bentyl] 10 mg PO BID #20 capsule 10/03/18 11/30/20 Unknown Rx Ondansetron (Nf) [Zofran TAB] 8 mg PO Q8HR PRN #20 tablet 10/03/18 11/30/20 Unknown Rx Naproxen [Naprosyn] 500 mg PO BID #20 tablet 11/16/19 11/30/20 Unknown Rx Imiquimod [Aldara 5%] 1 each TP 3XW #60 cream.pack 07/31/20 11/30/20 Unknown Rx Active Meds: Active Medications Atorvastatin Calcium (Atorvastatin 40 Mg Tab) 40 mg PO QHS [facility] Review of Systems ROS unobtainable: due to mental status Exam - Constitutional Vitals: Temp Pulse Resp BP Pulse Ox 98 F 72 16 122/74 100 11/30/20 02:08 11/30/20 02:08 11/30/20 02:08 11/30/20 02:08 11/30/20 02:08 General appearance: Present: mild distress - EENT Eyes: Present: PERRL ENT: hearing intact, clear oral mucosa - Neck Neck: Present: supple, normal ROM - Respiratory Respiratory effort: normal Respiratory: bilateral: CTA - Cardiovascular Heart Sounds: Present: S1 & S2. Absent: rub, click - Extremities Extremities: pulses symmetrical, No edema Peripheral Pulses: within normal limits - Abdominal General gastrointestinal: Present: soft, non-tender, non-distended, normal bowel sounds Male genitourinary: Present: normal - Integumentary Integumentary: Present: clear, warm, dry - Musculoskeletal Musculoskeletal: gait normal, strength equal bilaterally - Psychiatric Psychiatric: appropriate mood/affect, intact judgment & insight - Neurologic Neurologic: CNII-XII intact, moves all extremities Results - Labs CBC & Chem 7: 11/29/20 20:51 11/29/20 20:51 Labs: Abnormal lab results 11/29/20 11/29/20 11/29/20 Range/Units 20:51 20:51 20:51 RDW 13.0 L (13.2-15.2) % Salicylates < 0.3 L (2.8-20.0) mg/dL Acetaminophen 5.0 L (10.0-30.0) ug/mL Valproic Acid < 2.8 L (50-100) ug/mL Assessment and Plan - Patient Problems (1) CVA (cerebral vascular accident) Current Visit: Yes Status: Acute Plan to address problem: CVA protocol: CT scan head, carotid Doppler, lipid panel, antiplatelet therapy, echocardiograam, physical therapy consulted Occupational Therapy consulted, speech therapy consulted (2) Unspecified mood [affective] disorder Current Visit: Yes Status: Acute Plan to address problem: Mental health consulted. Patient deemed not a candidate for inpatient psychiatric care. Further care as per mental health team. (3) Hypertension Current Visit: No Status: Acute Qualifiers: Hypertension type: essential hypertension Qualified Code(s): I10 - Essential (primary) hypertension Plan to address problem: Monitor blood pressure every shift, continue medical management (4) HIV (human immunodeficiency virus infection) Current Visit: No Status: Chronic Qualifiers: HIV symptom status: asymptomatic, with no history of HIV-related illness Qualified Code(s): Z21 - Asymptomatic human immunodeficiency virus [HIV] infection status Plan to address problem: Outpatient infectious disease follow-up, continue medical management, (5) Seizure disorder Current Visit: No Status: Chronic Plan to address problem: Continue antiepileptic therapy, neuro check, seizure precautions, continue medical management. (6) DVT prophylaxis Current Visit: Yes Status: Acute Plan to address problem: SCD to bilateral lower extremities while in bed, patient is ambulatory.
[2020-11-30] MEDS ORDERED: PROMETHAZINE 25 MG RECT SUPP PR PRN (16:02)
[2020-11-30] MEDS ORDERED: ACETAMINOPHEN 325 MG TAB PO PRN (16:02)
[2020-11-30] MEDS ORDERED: ONDANSETRON 4 MG/2 ML INJ IV PRN (16:02)
[2020-11-30] MEDS ORDERED: MAGNESIUM HYDROXIDE (MOM) ORAL LIQD UDC PO PRN (16:02)
[2020-11-30] MEDS ORDERED: METOCLOPRAMIDE 10 MG TAB PO PRN (16:02)
[2020-11-30] MEDS ORDERED: IBUPROFEN 400 MG TAB PO PRN (16:07)
--- NOTE | 2020-11-30 17:24 | Vascular Lab Report ---
DUPLEX DOPPLER ULTRASOUND CAROTID, BILATERAL INDICATION / CLINICAL INFORMATION: stroke. COMPARISON: Carotid duplex dated 02/03/2018. FINDINGS: RIGHT CAROTID: - PLAQUE ESTIMATE (%): < 50% - CCA velocity: 111 cm/sec. - ICA peak systolic velocity: 92 cm/sec. - ICA/CCA PSV Ratio: 0.8 Right Vertebral Artery: Antegrade flow. LEFT CAROTID: - PLAQUE ESTIMATE: < 50% - CCA velocity: 122 cm/sec. - ICA peak systolic velocity: 106 cm/sec. - ICA/CCA PSV Ratio: 0.9 Left Vertebral Artery: Antegrade flow. IMPRESSION: 1. Right Internal Carotid Artery: Less than 50% diameter stenosis. 2. Left Internal Carotid Artery: Less than 50% diameter stenosis. Velocity criteria are extrapolated from diameter data as defined by the Society of Radiologists in Ul trasound Consensus Conference, Radiology 2003; 229;340-346. NO STENOSIS (NORMAL) * Plaque = none; ICA PSV < 125 cm/sec; ICA/CCA PSV Ratio < 2.0 <50% STENOSIS * Plaque < 50%; ICA PSV < 125 cm/sec; ICA/CCA PSV Ratio < 2.0 50-69% STENOSIS * Plaque > 50%; ICA PSV = 125-230 cm/sec; ICA/CCA PSV Ratio = 2.0-4.0 >70% BUT <100% STENOSIS * Plaque > 50%; ICA PSV < 230 cm/sec; ICA/CCA PSV Ratio > 4.0 NEAR OCCLUSION * Plaque = visible lumen; ICA PSV = high/low/none; ICA/CCA PSV Ratio = variable TOTAL OCCLUSION * Plaque = no lumen; ICA PSV = none; ICA/CCA PSV Ratio = N/A Signer Name: Elian Bettencourt MD Signed: 11/30/2020 5:20 PM Workstation Name: [id number]
[2020-11-30] MEDS: PHENYTOIN 100 MG CAPSULE.ER PO SCH (22:43)
[2020-11-30] MEDS: DICYCLOMINE 10 MG CAP PO SCH (22:43)
[2020-12-01 06:32] LABS: Chol/HDL Ratio 4.13 %
[2020-12-01] MEDS: PHENYTOIN 100 MG CAPSULE.ER PO SCH ×3 (06:41→22:15)
[2020-12-01] MEDS ORDERED: LAMIVUDINE PO SCH (10:00)
[2020-12-01] MEDS ORDERED: [UNRECOGNIZED DRUG - OTHER] PO SCH (10:00)
[2020-12-01] MEDS ORDERED: DARUNAVIR 800 MG TAB PO SCH (10:00)
[2020-12-01] MEDS ORDERED: IMIQUIMOD TP SCH (10:00)
[2020-12-01] MEDS ORDERED: ABACAVIR SULFATE PO SCH (10:00)
[2020-12-01] MEDS ORDERED: ATAZANAVIR PO SCH (10:00)
[2020-12-01] MEDS: ASPIRIN 325 MG TAB PO SCH (10:29)
[2020-12-01] MEDS: DICYCLOMINE 10 MG CAP PO SCH ×2 (10:29→22:15)
--- NOTE | 2020-12-01 13:56 | Progress Note ---
Assessment and Plan --Subacute CVA (cerebral vascular accident) Admitted with CVA protocol: CT scan head, carotid Doppler, lipid panel, antiplatelet therapy, echocardiograam, physical therapy consulted Occupational Therapy consulted, speech therapy consulted. CT head showed subacute CVA Telemetry neurology recommended MRI brain and MRA of the head neck -ordered We will follow further neurology recommendation Continue aspirin and statin for now --Acute encephalopathy Likely due to recent CVA, cannot also rule out underlying psych disorder Follow MRI brain and wait for psych recommendation -- Unspecified mood [affective] disorder Mental health consulted. Further care as per mental health team. -- Hypertension Monitor blood pressure every shift, continue medical management -- HIV (human immunodeficiency virus infection) Outpatient infectious disease follow-up, resume home meds and continue medical management, -- Seizure disorder Continue antiepileptic therapy, neuro check, seizure precautions, continue medical management. -- DVT prophylaxis SCD to bilateral lower extremities while in bed, patient is ambulatory. Daily clinical course: 12/01: Ordered MRI brain and MRA head and neck. We will follow the result, will follow further neurology recommendation. Requested sitter at bedside as patient remains slightly agitated , wants to go home as he doesn't like the food and wants to leave the hospital. Continue supportive care and monitor clinically. follow MRI results Subjective Date of service: 12/01/20 Interval history: Patient seen and examined. Medical records and medication list reviewed. No acute event overnight noted by the RN. Patient remains slightly agitated but will answer all question. Patient is tolerating diet but doesn't like the hospital food. Discussed plan of care at bedside with patient's RN. MRI ordered and pending Neuro eval pending Objective - Constitutional Vitals: Vital Signs - 12hr 12/01/20 12/01/20 06:00 10:19 Temperature 97.9 F Pulse Rate 68 Respiratory 18 Rate Blood Pressure 107/72 O2 Sat by Pulse 99 99 Oximetry General appearance: Present: no acute distress, well-nourished - EENT Eyes: PERRL, EOM intact ENT: hearing intact, clear oral mucosa Ears: bilateral: normal - Neck Neck: supple, normal ROM - Respiratory Respiratory effort: normal Respiratory: bilateral: CTA - Cardiovascular Rhythm: regular Heart Sounds: Present: S1 & S2. Absent: gallop, rub Extremities: pulses intact, No edema, normal color, Full ROM - Gastrointestinal General gastrointestinal: Present: soft, non-tender, non-distended, normal bowel sounds - Integumentary Integumentary: clear, warm, dry - Musculoskeletal Musculoskeletal: 1, strength equal bilaterally - Neurologic Neurologic: moves all extremities - Psychiatric Psychiatric: memory intact, agitated - Labs CBC & Chem 7: 11/29/20 20:51 11/29/20 20:51 Labs: Abnormal lab results 12/01/20 Range/Units 05:30 HDL Cholesterol 38 L (40-59) mg/dL
--- NOTE | 2020-12-01 15:12 | Magnetic Resonance Report ---
MRI BRAIN WITHOUT CONTRAST INDICATION / CLINICAL INFORMATION: CVA, loss of vision. TECHNIQUE: Multisequence, multiplanar images were obtained. COMPARISON: CT head dated 11/30/2020 FINDINGS: CEREBRAL and CEREBELLAR HEMISPHERES: A moderate size area of diffusion restriction is identified in t he posterior left temporal lobe extending to the left parietal lobe measuring up to 7.8 x 2.6 cm in a xial dimensions. There is a second smaller area of diffusion restriction in the posterior left subins ular cortex measuring up to 2.5 x 1.1 cm. There is no evidence for hemorrhage, mass or extra-axial f luid collection. A small chronic cortical infarct is identified in the right parietal cortex measuri ng up to 1.5 cm in greatest dimension. Chronic focal infarcts measuring less than 5 mm are identified in both cerebellar hemispheres. Mild diffuse cortical volume loss is suspected for this person's ag e. VENTRICLES: Normal in size and configuration for age. VISUALIZED ORBITS: No significant abnormality. VISUALIZED PARANASAL SINUSES: Minimal mucosal thickening is noted in the left maxillary sinus and eth moid air cells. ADDITIONAL FINDINGS: None. IMPRESSION: Moderate size area of subacute ischemia in the left posterior temporal/parietal regions as described. Smaller area of subacute ischemia in the left subinsular region as described. No evidence for hemorr scarlett or mass effect. Focal chronic cortical infarct in the right parietal cortex. Subcentimeter chronic focal infarcts in both cerebellar hemispheres. Moderate volume loss is suspected for this patient's stated age. MRA HEAD WITHOUT CONTRAST HISTORY: CVA, loss of vision COMPARISON: None. TECHNIQUE: Routine MRA of the head is performed. 3-D/MIP reformats postprocessed. CONTRAST: None. FINDINGS: Intracranial vertebral arteries: No significant abnormality. Basilar artery: No significant abnormality. Posterior cerebral arteries: No significant abnormality. Intracranial internal carotid arteries: No significant abnormality. Anterior cerebral arteries: No significant abnormality. Middle cerebral arteries: The left M3 and M4 segments of the left MCA appear atretic with multifocal stenosis and eventual occlusion of the M4 segments. This correlates with the ischemic infarct seen on MRI performed the same day. The right MCA is unremarkable. Additional findings: None. IMPRESSION: Multifocal stenosis and eventual occlusion of the third and fourth segments of the left MCA. Signer Name: Rolly Harvey Jr, MD Signed: 12/01/2020 3:08 PM Workstation Name: [id number]
[2020-12-01 18:00] VITALS: BP 113/82
[2020-12-01] MEDS ORDERED: LORazepam 2 MG/ML VIAL IV PRN (20:22)
--- NOTE | 2020-12-01 22:05 | Consultation ---
History of Present Illness Consult date: 12/01/20 Chief complaint: Chief Complaint: altered mental state, stroke (subacute) Additional History: 30M with HIV, seizures, possible prior strokes presents with "abdnormal behavior". Mumbling to himself, repetitive. CT head done as part of work-up shows a stroke in the left parietal region. LKWT about 3 days prior when he first started mumbling to himself. The patient reports improvement, denies headaches , no issues with speech and swallowing . Past History Past Medical History: HIV/AIDS, hypertension, hyperlipidemia, other (See HPI) Past Surgical History: No surgical history, Other (Reviewed) Social history: single Family history: hypertension Medications and Allergies Allergies Allergy/AdvReac Type Severity Reaction Status Date / Time Penicillins Allergy Unknown Verified 07/31/20 11:34 strawberry [Dalton] Allergy Unknown Verified 07/31/20 11:34 Home Medications Medication Instructions Recorded Confirmed Last Taken Type Ibuprofen [Motrin 400 MG tab] 400 mg PO Q8H PRN #10 tablet 09/11/16 11/30/20 09/25/16 Rx Abacavir Sulfate/Lamivudine 1 each PO DAILY #30 03/28/17 11/30/20 Unknown Rx [Epzicom TAB] Atazanavir Sulfate [Reyataz] 400 mg PO QDAY #30 03/28/17 11/30/20 Unknown Rx Darunavir [Prezista] 800 mg PO QDAY #30 tablet 03/28/17 11/30/20 Unknown Rx Elviteg/Nicole/Emtric/Tenofo Ala 1 tab PO QDAY #30 tablet 03/28/17 11/30/20 Unknown Rx [Genvoya (Nf)] Aspirin 81 mg PO DAILY #30 tab.chew 02/04/18 11/30/20 Unknown Rx Phenytoin [Dilantin] 100 mg PO Q8HR #90 capsule.er 02/04/18 11/30/20 Unknown Rx Pravastatin [Pravachol] 40 mg PO QHS #30 tablet 02/04/18 11/30/20 Unknown Rx DOXYCYCLINE Hyclate [Vibramycin 100 mg PO Q12HR #20 capsule 02/28/18 11/30/20 Unknown Rx CAP] Ibuprofen [Motrin] 800 mg PO Q8HR PRN #20 tablet 02/28/18 11/30/20 Unknown Rx traMADoL [Ultram] 50 mg PO Q6HR PRN #12 tablet 02/28/18 11/30/20 Unknown Rx Ibuprofen [Motrin] 600 mg PO Q8H PRN #30 tablet 04/26/18 11/30/20 Unknown Rx methOCARBAMOL [Robaxin TAB] 500 mg PO QHS #10 tab 04/26/18 11/30/20 Unknown Rx Dicyclomine [Bentyl] 10 mg PO BID #20 capsule 10/03/18 11/30/20 Unknown Rx Ondansetron (Nf) [Zofran TAB] 8 mg PO Q8HR PRN #20 tablet 10/03/18 11/30/20 Unknown Rx Naproxen [Naprosyn] 500 mg PO BID #20 tablet 11/16/19 11/30/20 Unknown Rx Imiquimod [Aldara 5%] 1 each TP 3XW #60 cream.pack 07/31/20 11/30/20 Unknown Rx Active Meds: Active Medications Acetaminophen (Acetaminophen 325 Mg Tab) 650 mg PO Q4H PRN PRN Reason: Pain, Mild (1-3) Aspirin (Aspirin 325 Mg Tab) 325 mg PO QDAY [facility] Last Admin: 12/01/20 10:29 Dose: 325 mg Documented by: Atorvastatin Calcium (Atorvastatin 40 Mg Tab) 40 mg PO QHS [facility] Last Admin: 11/30/20 22:43 Dose: 40 mg Documented by: Bisacodyl (Bisacodyl 10 Mg Rect Supp) 10 mg GA QDAY PRN PRN Reason: Constipation Darunavir (Darunavir 800 Mg Tab) 800 mg PO QDAY [facility] Dicyclomine HCl (Dicyclomine 10 Mg Cap) 10 mg PO BID [facility] Last Admin: 12/01/20 10:29 Dose: 10 mg Documented by: Ibuprofen (Ibuprofen 400 Mg Tab) 400 mg PO Q8H PRN PRN Reason: PAIN Magnesium Hydroxide (Magnesium Hydroxide (Mom) Oral Liqd Udc) 30 ml PO Q4H PRN PRN Reason: Constipation Methocarbamol (Methocarbamol 500 Mg Tab) 500 mg PO QHS [facility] Last Admin: 11/30/20 22:43 Dose: 500 mg Documented by: Metoclopramide HCl (Metoclopramide 10 Mg Tab) 10 mg PO Q6H PRN PRN Reason: Nausea And Vomiting Miscellaneous Medication (Abacavir Sulfate/Lamivudine [Epzicom Tab]) 1 each PO DAILY YNES Miscellaneous Medication (Atazanavir Sulfate [Reyataz]) 400 mg PO QDAY YNES Miscellaneous Medication (Elviteg/Nicole/Emtric/Tenofo Ala) 1 tab PO QDAY YNES Miscellaneous Medication (Imiquimod [Aldara 5%]) 1 each TP 3XW YNES Ondansetron HCl (Ondansetron 4 Mg/2 Ml Inj) 4 mg IV Q8H PRN PRN Reason: Nausea And Vomiting Phenytoin (Phenytoin 100 Mg Capsule.Er) 100 mg PO Q8HR YNES Last Admin: 12/01/20 15:48 Dose: 100 mg Documented by: Promethazine HCl (Promethazine 25 Mg Rect Supp) 25 mg GA Q6H PRN PRN Reason: Nausea And Vomiting Sodium Chloride (Sodium Chloride 0.9% 10 Ml Flush Syringe) 10 ml IV PRN PRN PRN Reason: LINE FLUSH Physical Examination - Vital Signs Vital Signs: Vital Signs Temp Pulse Resp BP Pulse Ox 98.3 F 74 18 130/80 100 11/29/20 18:10 11/29/20 18:10 11/29/20 18:10 11/29/20 18:10 11/29/20 18:10 - Physical Exam Narrative exam: The patient is alert , moves all 4 extremities well, has expressive very minimal ? aphasia , finger to nose normal . Results - Laboratory Findings CBC and BMP: 11/29/20 20:51 11/29/20 20:51 Abnormal Lab Findings: Abnormal Labs 11/29/20 11/29/20 11/29/20 20:51 20:51 20:51 RDW 13.0 L HDL Cholesterol Salicylates < 0.3 L Acetaminophen 5.0 L Valproic Acid < 2.8 L 12/01/20 05:30 RDW HDL Cholesterol 38 L Salicylates Acetaminophen Valproic Acid Assessment and Plan 1. CVA ( Left MCA distributation, since it is in one territory cardio-embolic CVA cannot be clinically excluded . 2. Reviewed MRI Brain . 3. Since Patient is Young - stroke in young workup - Hypercoaguable States needs to be excluded . 4. Continue ASA 325mg once a day for now . 5. Comprehensive Cardiac Workup is recommended . 6. Neurology Follow up is required . Dr. John
[2020-12-02] MEDS: PHENYTOIN 100 MG CAPSULE.ER PO SCH (06:18)
[2020-12-02] MEDS ORDERED: ZIPRASIDONE MESYLATE 20 MG VIAL IM NR (09:17)
[2020-12-02] MEDS ORDERED: WATER FOR INJ Sterile (PF) 10 ML ONE (09:28)
[2020-12-02] MEDS: ASPIRIN 325 MG TAB PO SCH (10:35)
[2020-12-02] MEDS: DICYCLOMINE 10 MG CAP PO SCH (10:35)
--- NOTE | 2020-12-02 10:39 | Discharge Summary ---
Providers - Providers Date of Admission: 12/01/20 10:24 Date of discharge: 12/02/20 Attending physician: FAIZA JIMÉNEZ 11/30/20 16:02 Occupational Therapy Evaluate and Treat [CONS] Routine Comment: Reason For Exam: Neuro deficits Physical Therapy Evaluation and Treat [CONS] Routine Comment: Reason For Exam: Neuro deficits 12/01/20 09:46 Consult to Physician [CONS] Routine Comment: Consulting Provider: VIKTORIYA CAMARILLO Physician Instructions: Reason For Exam: possible CVA Primary care physician: TECHNICAL DIRECTOR Hospitalization Condition: Stable Pertinent studies: Head CT Carotid doppler MRI brain MRA head/neck 2d echo Hospital course: 30M with history of HIV, seizures, possible prior strokes presents with "abdnormal behavior", Mumbling to himself, repetitive. Psych was consulted in the ER and did not recommend any acute inpatient psych treatment. Psych recommended to rule out possible underlying medical reason. CT head done as part of work-up shows a stroke in the left parietal region. Patient was admitted to the hospital with acute stroke protocol, tele-neurology was consulted in the ER. Patient was not found to be a candidate for TPA. Patient was placed on antiplatelets, statin and allowed for permissive hypertension. Patient was further evaluated with carotid Doppler, MRI of the brain, MRA head neck, 2D echo. MRI/MRA brain and head neck showed following: Moderate size area of subacute ischemia in the left posterior temporal/parietal regions, Smaller area of subacute ischemia in the left subinsular region. Focal chronic cortical infarct in the right parietal cortex. Subcentimeter chronic focal infarcts in both cerebellar hemispheres. Moderate volume loss is suspected for this patient's stated age. Multifocal stenosis and eventual occlusion of the third and fourth segments of the left MCA. The right MCA is unremarkable. Carotid Doppler showed less than 50% stenosis bilaterally, 2D echo showed preserved EF Patient could not get the MRA with contrast and he refused any further testing. Patient was tolerating diet and was ambulating. He wanted to leave the hospital, al hughes was called. I thoroughly discussed the clinical findings and imaging results to patient family by phone in a conference call. Patient was recommended to continue aspirin stating and HIV medications. His UDS was positive for marijuana, patient counseled to quit substance abuse. Patient was then discharged home with family with outpatient follow-up. 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 Continue current medications and follow-up as outpatient -- Hypertension Monitored blood pressure every shift, BP was stable without any meds -- HIV (human immunodeficiency virus infection) Outpatient infectious disease follow-up, resumed home meds and continue medical management, --Substance abuse, UDs positive for marijuana, recommended outpt rehab and quiting -- Seizure disorder Continue antiepileptic therapy dilated, neuro check, seizure precautions, continue medical management. -- DVT prophylaxis SCD to bilateral lower extremities while in bed, patient is ambulatory. Disposition: DC-30 STILL A PATIENT Final Discharge Diagnosis (Prints w/discharge instructions): Acute encephalopathy. Subacute CVA. HIV. Unspecified mood disorder. Seizure disorder. Substance abuse Time spent for discharge: 34 minutes Core Measure Documentation - Palliative Care Palliative Care/ Comfort Measures: Not Applicable - Core Measures Any of the following diagnoses?: stroke - Stroke Discharge Requirements Statin for LDL = or >70 mg/dl on DC: Yes Anticoag for atrial fib/atrial flutter: Not Applicable Antithrombotic for ischemic stroke: Yes Exam - Physical Exam Narrative exam: General appearance: Present: no acute distress, well-nourished - EENT Eyes: PERRL, EOM intact ENT: hearing intact, clear oral mucosa Ears: bilateral: normal - Neck Neck: supple, normal ROM - Respiratory Respiratory effort: normal Respiratory: bilateral: CTA - Cardiovascular Rhythm: regular Heart Sounds: Present: S1 & S2. Absent: gallop, rub Extremities: pulses intact, No edema, normal color, Full ROM - Gastrointestinal General gastrointestinal: Present: soft, non-tender, non-distended, normal bowel sounds - Integumentary Integumentary: clear, warm, dry - Musculoskeletal Musculoskeletal: 1, strength equal bilaterally - Neurologic Neurologic: moves all extremities - Psychiatric Psychiatric: memory intact, agitated - Constitutional Vitals: Temp Pulse Resp BP Pulse Ox 97.5 F L 72 16 113/82 100 12/01/20 16:59 12/01/20 16:59 12/02/20 05:00 12/01/20 16:59 12/02/20 05:00 Plan Activity: advance as tolerated Weight Bearing Status: Weight Bear as Tolerated Diet: low fat, low salt Additional Instructions: Please be compleant with medication and quit substance abuse. Need hypercoagulability/autoinflammatory workup as outpt. F/u with neurologist as outpt in 1-2 weeks Follow up with: PRIMARY CARE, [Primary Care Provider] - 7 Days Prescriptions: AtorvaSTATin [Lipitor] 40 mg PO QHS #30 tablet methOCARBAMOL [Robaxin TAB] 500 mg PO QHS #10 tab Abacavir Sulfate/Lamivudine [Epzicom TAB] 1 each PO DAILY #30 Imiquimod [Aldara 5%] 1 each TP 3XW #60 cream.pack Aspirin 325 mg PO QDAY #30 tablet Atazanavir Sulfate [Reyataz] 400 mg PO QDAY #30 Phenytoin [Dilantin] 100 mg PO Q8HR #90 capsule.er Elviteg/Nicole/Emtric/Tenofo Ala [Genvoya (Nf)] 1 tab PO QDAY #30 tablet Darunavir [Prezista] 800 mg PO QDAY #30 tablet
[2020-12-04 20:17] LABS: Cardiolipin Ab IgA <11 APL (<=11); Cardiolipin Ab IgG <14 GPL (<=14); Cardiolipin Ab IgM <12 MPL (<=12)
== END 2020-12-02 11:21 | disposition home or self-care (01) | DRG 65 ==
LOC: ED 17:54 → 3A 11-30 16:02 → OBSVTOIN 12-01 10:24
PROVIDERS: ADMIT Internal Medicine; ATTEND Internal Medicine
DX: I63.9 Cerebral infarction, unspecified (principal); B20 Human immunodeficiency virus [HIV] disease; G93.40 Encephalopathy, unspecified; G40.909 Epilepsy, unspecified, not intractable, without status epilepticus; F19.19 Other psychoactive substance abuse with unspecified psychoactive substance-induced disorder; I10 Essential (primary) hypertension; F39 Unspecified mood [affective] disorder; R29.708 NIHSS score 8; Z20.822 Contact with and (suspected) exposure to COVID-19; Z88.0 Allergy status to penicillin; Z82.49 Family history of ischemic heart disease and other diseases of the circulatory system; Z79.899 Other long term (current) drug therapy; Z79.82 Long term (current) use of aspirin
CPT/HCPCS: 36415; 70450; 70544; 70551; 80048; 80061; 80164; 80307; 80320; 81001; 85025; 85305; 86147; 93306; 93880; 96372; G0378; A9270-GY; G0480; J2060; J3486; U0003

== ENCOUNTER 2021-05-11 15:54 | Inpatient (IN) | payer SELFPAY ==
--- NOTE | 2021-05-11 16:19 | Emergency Department Report ---
<KARSON SIMON - Last Filed: 05/11/21 21:26> ED Psych HPI - General Chief Complaint: Psych Stated Complaint: MH EVAL/1013 Time Seen by Provider: 05/11/21 16:08 - Related Data Previous Rx's Medication Instructions Recorded Last Taken Type Abacavir Sulfate/Lamivudine 1 each PO DAILY #30 12/02/20 Unknown Rx [Epzicom TAB] Aspirin 325 mg PO QDAY #30 tablet 12/02/20 Unknown Rx Atazanavir Sulfate [Reyataz] 400 mg PO QDAY #30 12/02/20 Unknown Rx AtorvaSTATin [Lipitor] 40 mg PO QHS #30 tablet 12/02/20 Unknown Rx Darunavir [Prezista] 800 mg PO QDAY #30 tablet 12/02/20 Unknown Rx Elviteg/Nicole/Emtric/Tenofo Ala 1 tab PO QDAY #30 tablet 12/02/20 Unknown Rx [Genvoya (Nf)] Imiquimod [Aldara 5%] 1 each TP 3XW #60 cream.pack 12/02/20 Unknown Rx Phenytoin [Dilantin] 100 mg PO Q8HR #90 capsule.er 12/02/20 Unknown Rx methOCARBAMOL [Robaxin TAB] 500 mg PO QHS #10 tab 12/02/20 Unknown Rx Allergies Allergy/AdvReac Type Severity Reaction Status Date / Time Penicillins Allergy Unknown Verified 07/31/20 11:34 strawberry [[place]] Allergy Unknown Verified 07/31/20 11:34 ED Past Medical Hx - Medications Home Medications: Home Medications Medication Instructions Recorded Confirmed Last Taken Type Abacavir Sulfate/Lamivudine 1 each PO DAILY #30 12/02/20 05/12/21 Unknown Rx [Epzicom TAB] Aspirin 325 mg PO QDAY #30 tablet 12/02/20 05/12/21 Unknown Rx Atazanavir Sulfate [Reyataz] 400 mg PO QDAY #30 12/02/20 05/12/21 Unknown Rx AtorvaSTATin [Lipitor] 40 mg PO QHS #30 tablet 12/02/20 05/12/21 Unknown Rx Darunavir [Prezista] 800 mg PO QDAY #30 tablet 12/02/20 05/12/21 Unknown Rx Elviteg/Nicole/Emtric/Tenofo Ala 1 tab PO QDAY #30 tablet 12/02/20 05/12/21 Unknown Rx [Genvoya (Nf)] Imiquimod [Aldara 5%] 1 each TP 3XW #60 cream.pack 12/02/20 05/12/21 Unknown Rx Phenytoin [Dilantin] 100 mg PO Q8HR #90 capsule.er 12/02/20 05/12/21 Unknown Rx methOCARBAMOL [Robaxin TAB] 500 mg PO QHS #10 tab 12/02/20 05/12/21 Unknown Rx ED Medical Decision Making - Lab Data Result diagrams: 05/11/21 20:12 05/11/21 20:12 Laboratory Tests 05/11/21 05/11/21 05/11/21 20:12 20:12 20:12 WBC 5.5 RBC 4.65 Hgb 14.9 Hct 43.1 MCV 93 MCH 32 MCHC 35 H RDW 12.4 L Plt Count 188 Lymph % (Auto) 24.7 [place] % (Auto) 6.7 Eos % (Auto) 2.5 Baso % (Auto) 0.4 Lymph # (Auto) 1.4 [place] # (Auto) 0.4 Eos # (Auto) 0.1 Baso # (Auto) 0.0 Seg Neutrophils % 65.7 Seg Neutrophils # 3.6 PT INR APTT Thrombin Time Sodium 139 Potassium 3.8 Chloride 103.3 Carbon Dioxide 21 L Anion Gap 19 BUN 11 Creatinine 1.2 Estimated GFR > 60 BUN/Creatinine Ratio 9 Glucose 83 Calcium 9.4 Salicylates < 0.3 L Acetaminophen Plasma/Serum Alcohol 05/11/21 05/11/21 05/11/21 20:12 20:12 20:12 WBC RBC Hgb Hct MCV MCH MCHC RDW Plt Count Lymph % (Auto) [place] % (Auto) Eos % (Auto) Baso % (Auto) Lymph # (Auto) [place] # (Auto) Eos # (Auto) Baso # (Auto) Seg Neutrophils % Seg Neutrophils # PT 13.2 INR 0.94 APTT 25.2 Thrombin Time 18.0 Sodium Potassium Chloride Carbon Dioxide Anion Gap BUN Creatinine Estimated GFR BUN/Creatinine Ratio Glucose Calcium Salicylates Acetaminophen 5.0 L Plasma/Serum Alcohol < 0.01 - Radiology Data Radiology results: report reviewed (CT head), image reviewed (CT head) [address] [address] Cat Scan Report Signed Patient: LUIS E CHOUDHURY MR#: [id number] : 1990 Acct:[id number] Age/Sex: 31 / M ADM Date: 05/11/21 Loc: ED Attending Dr: Ordering Physician: AMRIT FRAGOSO Date of Service: 05/11/21 Procedure(s): CT head/brain wo con Accession Number(s): [id number] cc: AMRIT FRAGOSO NONENHANCED CT SCAN OF THE HEAD: INDICATION / CLINICAL INFORMATION: 31 years Male; right upper extremity weakness. TECHNIQUE: Routine CT head without contrast. All CT scans at this location are performed using CT dose reduction for ALARA by means of automated exposure control. COMPARISON: CT scan of the head from 11/30/2020 and MRI scan of the brain from 12/01/2020 FINDINGS: BRAIN / INTRACRANIAL CONTENTS: No hemorrhage or hemorrhagic lesion Chronic ischemic changes in the left posterior temporal lobe; since the last CT and MRI scans, low- attenuation lesion in the left thalamus; age indeterminate; this could be subacute; considering the age, significant cortical involution; as seen in the last CT scan, punctate area of calcification near foramen of Monro From the choroid plexus calcification Nonobstructive colloid cyst CRANIOCERVICAL JUNCTION: No significant abnormality. ORBITS: No significant abnormality of visualized orbits. SINUSES / MASTOIDS: No significant abnormality of the visualized paranasal sinuses or mastoid air cells. ADDITIONAL FINDINGS: None. IMPRESSION: No hemorrhage or stroke mimics Chronic ischemic changes in the left posterior temporal lobe; since the previous imaging studies, low attenuation left thalamic lacune; age indeterminate; this could be subacute Considering the age, considerable cortical involution Signer Name: Gibson Siegel MD Signed: 05/11/2021 8:15 PM Workstation Name: [id number] Transcribed By: BS Dictated By: Gibson Neff MD Electronically Authenticated By: Gibson Neff MD Signed Date/Time: 05/11/212014 DD/ 09 TD/TT: Print Cancel ED Disposition Clinical Impression: CVA (cerebral vascular accident), Acute psychosis Disposition: 09 ADMITTED INPATIENT Is pt being admited?: Yes Does the pt Need Aspirin: Yes Condition: Fair Time of Disposition: 21:27 (Hospitalist called (Dr Chavarria)) - Lab Data Result diagrams: 05/11/21 20:12 05/11/21 20:12 <AMRIT FRAGOSO - Last Filed: 05/12/21 10:34> ED Psych HPI - General Source: EMS Mode of arrival: Stretcher - History of Present Illness Initial Comments: Patient is 31 years old male with history of mood disorder, HIV, left MCA stroke and seizure. Patient brought to the emergency room via EMS from a local store. Patient found to be altered, aggressive and responding to internal stimuli. According to the EMS personnel stated that patient was telling them that he is suicidal and homicidal. When they ask him to come to the ER patient became very aggressive and patient have to be sedated with Haldol, Benadryl and Vistaril. Upon arrival to the ER patient is obtunded however his vital signs stable. MD Complaint: suicidal ideation, altered mental status -: unknown Associated Psychiatric Symptoms: suicidal ideation, homicidal ideation, racing thoughts, auditory hallucinations, visual hallucinations Quality: constant Treatments Prior to Arrival: placed on mental he, chemical restraints ED Review of Systems ROS: Stated complaint: MH EVAL/1013 Other details as noted in HPI Comment: Unobtainable due to pts medical conditions ED Past Medical Hx - Past Medical History Hx Hypertension: Yes Hx Congestive Heart Failure: No Hx Diabetes: No Hx Seizures: Yes Hx Psychiatric Treatment: Yes (depression/suicidal) Hx Asthma: No Hx COPD: No Hx Dementia: No Hx HIV: No Additional medical history: Epilepsy - Social History Smoking Status: Never Smoker ED Physical Exam - General Limitations: Altered Mental Status General appearance: obtunded - Head Head exam: Present: atraumatic, normocephalic, normal inspection - Eye Eye exam: Present: normal appearance - ENT ENT exam: Present: normal exam, normal orophraynx, mucous membranes moist - Neck Neck exam: Present: normal inspection, full ROM. Absent: tenderness, meningismus - Respiratory Respiratory exam: Present: normal lung sounds bilaterally - Cardiovascular Cardiovascular Exam: Present: normal rhythm, normal heart sounds - GI/Abdominal GI/Abdominal exam: Present: soft, normal bowel sounds. Absent: distended, tenderness, guarding, rebound, rigid, organomegaly, mass, bruit, pulsatile mass, hernia - Extremities Exam Extremities exam: Present: normal inspection, full ROM, normal capillary refill. Absent: tenderness - Back Exam Back exam: Present: normal inspection, full ROM. Absent: tenderness, CVA tenderness (R), CVA tenderness (L) - Neurological Exam Neurological exam: Present: altered, other (right upper extremity motor deficit.) - Skin Skin exam: Present: warm, intact, normal color ED Course Vital Signs 05/11/21 05/11/21 05/11/21 16:07 18:43 19:50 Temperature 98 F 97.9 F 98.6 F Pulse Rate 111 H 93 H 77 Respiratory 20 20 18 Rate Blood Pressure Blood Pressure 140/90 142/70 135/91 [Right] O2 Sat by Pulse 98 99 99 Oximetry 05/11/21 05/11/21 05/11/21 22:12 22:16 22:30 Temperature Pulse Rate 57 L 63 68 Respiratory 15 15 11 L Rate Blood Pressure 137/87 129/88 Blood Pressure [Right] O2 Sat by Pulse 100 100 99 Oximetry 05/11/21 05/11/21 05/11/21 22:46 23:00 23:16 Temperature Pulse Rate 60 56 L 73 Respiratory 18 17 18 Rate Blood Pressure 115/68 129/88 129/88 Blood Pressure [Right] O2 Sat by Pulse 97 98 97 Oximetry 05/11/21 05/11/21 05/11/21 23:30 23:46 23:50 Temperature Pulse Rate 84 58 L 56 L Respiratory 17 12 16 Rate Blood Pressure 117/70 117/70 117/70 Blood Pressure [Right] O2 Sat by Pulse 95 97 97 Oximetry 05/12/21 05/12/21 05/12/21 00:00 00:10 00:20 Temperature Pulse Rate 55 L 56 L 56 L Respiratory 15 17 15 Rate Blood Pressure 108/68 108/68 108/68 Blood Pressure [Right] O2 Sat by Pulse 99 99 98 Oximetry 05/12/21 05/12/21 05/12/21 00:30 00:40 00:50 Temperature Pulse Rate 91 H 58 L 58 L Respiratory 20 16 11 L Rate Blood Pressure 108/68 108/68 108/68 Blood Pressure [Right] O2 Sat by Pulse 97 97 98 Oximetry 05/12/21 05/12/21 05/12/21 01:00 01:10 01:23 Temperature 98.1 F Pulse Rate 55 L 54 L 60 Respiratory 14 15 16 Rate Blood Pressure 108/68 117/70 119/74 Blood Pressure [Right] O2 Sat by Pulse 97 97 98 Oximetry 05/12/21 05/12/21 05/12/21 01:48 01:50 02:00 Temperature Pulse Rate 88 83 79 Respiratory 18 37 H 31 H Rate Blood Pressure 108/68 121/80 120/69 Blood Pressure [Right] O2 Sat by Pulse 98 98 98 Oximetry - Reevaluation(s) Reevaluation #1: 05/11/21 19:00 Patient now is awake, alert and oriented x3. Patient stated that he does not remember what happened. Patient stated that he is having trouble moving his right upper extremity for approximately 1 week now. I reviewed his chart from last visit in November where he was diagnosed with left MCA at that time he did not have a right upper extremity weakness. His current presentation is possibly due to acute psychosis and I do not think related to his stroke. His upper extremity weakness has been going on for a week now. Stroke scale is 2. I will order a CT scan of the brain for further evaluation. ED Medical Decision Making - Lab Data Result diagrams: 05/12/21 04:49 05/12/21 04:49 - Medical Decision Making Patient is 31 years old male with history of mood disorder, HIV, left MCA stroke and seizure. Patient brought to the emergency room via EMS from a local store. Patient found to be altered, aggressive and responding to internal stimuli. According to the EMS personnel stated that patient was telling them that he is suicidal and homicidal. When they ask him to come to the ER patient became very aggressive and patient have to be sedated with Haldol, Benadryl and Vistaril. Upon arrival to the ER patient is obtunded however his vital signs stable. Critical care attestation.: If time is entered above; I have spent that time in minutes in the direct care of this critically ill patient, excluding procedure time. - Lab Data Result diagrams: 05/12/21 04:49 05/12/21 04:49 Lab Results 05/11/21 05/11/21 05/11/21 Range/Units 20:12 20:12 20:12 WBC 5.5 (4.5-11.0) K/mm3 RBC 4.65 (3.65-5.03) M/mm3 Hgb 14.9 (11.8-15.2) gm/dl Hct 43.1 (35.5-45.6) % MCV 93 (84-94) fl MCH 32 (28-32) pg MCHC 35 H (32-34) % RDW 12.4 L (13.2-15.2) % Plt Count 188 (140-440) K/mm3 Lymph % (Auto) 24.7 (13.4-35.0) % [place] % (Auto) 6.7 (0.0-7.3) % Eos % (Auto) 2.5 (0.0-4.3) % Baso % (Auto) 0.4 (0.0-1.8) % Lymph # (Auto) 1.4 (1.2-5.4) K/mm3 [place] # (Auto) 0.4 (0.0-0.8) K/mm3 Eos # (Auto) 0.1 (0.0-0.4) K/mm3 Baso # (Auto) 0.0 (0.0-0.1) K/mm3 Seg Neutrophils % 65.7 (40.0-70.0) % Seg Neutrophils # 3.6 (1.8-7.7) K/mm3 PT (12.2-14.9) Sec. INR (0.87-1.13) APTT (24.2-36.6) Sec. Thrombin Time (15.1-19.6) Sec. Sodium 139 (137-145) mmol/L Potassium 3.8 (3.6-5.0) mmol/L Chloride 103.3 (98-107) mmol/L Carbon Dioxide 21 L (22-30) mmol/L Anion Gap 19 mmol/L BUN 11 (9-20) mg/dL Creatinine 1.2 (0.8-1.3) mg/dL Estimated GFR > 60 ml/min BUN/Creatinine Ratio 9 % Glucose 83 (75-100) mg/dL Calcium 9.4 (8.4-10.2) mg/dL Salicylates < 0.3 L (2.8-20.0) mg/dL Acetaminophen (10.0-30.0) ug/mL Plasma/Serum Alcohol (0-0.07) % 08/05/11/21 05/11/21 Range/Units 20:12 20:12 20:12 WBC (4.5-11.0) K/mm3 RBC (3.65-5.03) M/mm3 Hgb (11.8-15.2) gm/dl Hct (35.5-45.6) % MCV (84-94) fl MCH (28-32) pg MCHC (32-34) % RDW (13.2-15.2) % Plt Count (140-440) K/mm3 Lymph % (Auto) (13.4-35.0) % [place] % (Auto) (0.0-7.3) % Eos % (Auto) (0.0-4.3) % Baso % (Auto) (0.0-1.8) % Lymph # (Auto) (1.2-5.4) K/mm3 [place] # (Auto) (0.0-0.8) K/mm3 Eos # (Auto) (0.0-0.4) K/mm3 Baso # (Auto) (0.0-0.1) K/mm3 Seg Neutrophils % (40.0-70.0) % Seg Neutrophils # (1.8-7.7) K/mm3 PT 13.2 (12.2-14.9) Sec. INR 0.94 (0.87-1.13) APTT 25.2 (24.2-36.6) Sec. Thrombin Time 18.0 (15.1-19.6) Sec. Sodium (137-145) mmol/L Potassium (3.6-5.0) mmol/L Chloride (98-107) mmol/L Carbon Dioxide (22-30) mmol/L Anion Gap mmol/L BUN (9-20) mg/dL Creatinine (0.8-1.3) mg/dL Estimated GFR ml/min BUN/Creatinine Ratio % Glucose (75-100) mg/dL Calcium (8.4-10.2) mg/dL Salicylates (2.8-20.0) mg/dL Acetaminophen 5.0 L (10.0-30.0) ug/mL Plasma/Serum Alcohol < 0.01 (0-0.07) % ED Neuro Deficit EXAM - General General appearance: alert, in no apparent distress Limitations: Altered Mental Status - Head Head exam: Positive: atraumatic, normocephalic, normal inspection - Eye Eye exam: normal appearance - Neurological Neurological Exam: Positive: Alert, Oriented X3, CN II-XII Intact, Motor Sensory Deficit - [place] Coma Scale Best Eye Response ([place]): (4) open spontaneously Best Motor Response ([place]): (6) obeys commands Best Verbal Response ([place]): (5) oriented [place] Total: 15 - Psychiatric Psychiatric exam: Positive: normal affect
--- NOTE | 2021-05-11 20:20 | Cat Scan Report ---
NONENHANCED CT SCAN OF THE HEAD: INDICATION / CLINICAL INFORMATION: 31 years Male; right upper extremity weakness. TECHNIQUE: Routine CT head without contrast. All CT scans at this location are performed using CT dos e reduction for ALARA by means of automated exposure control. COMPARISON: CT scan of the head from 11/30/2020 and MRI scan of the brain from 12/01/2020 FINDINGS: BRAIN / INTRACRANIAL CONTENTS: No hemorrhage or hemorrhagic lesion Chronic ischemic changes in the left posterior temporal lobe; since the last CT and MRI scans, low-at tenuation lesion in the left thalamus; age indeterminate; this could be subacute; considering the age , significant cortical involution; as seen in the last CT scan, punctate area of calcification near f oramen of [place]ro From the choroid plexus calcification Nonobstructive colloid cyst CRANIOCERVICAL JUNCTION: No significant abnormality. ORBITS: No significant abnormality of visualized orbits. SINUSES / MASTOIDS: No significant abnormality of the visualized paranasal sinuses or mastoid air boris ls. ADDITIONAL FINDINGS: None. IMPRESSION: No hemorrhage or stroke mimics Chronic ischemic changes in the left posterior temporal lobe; since the previous imaging studies, low attenuation left thalamic lacune; age indeterminate; this could be subacute Considering the age, considerable cortical involution Signer Name: Gibson Siegel MD Signed: 05/11/2021 8:15 PM Workstation Name: [id number]
[2021-05-11] MEDS ORDERED: ASPIRIN 325 MG TAB PO ONE (20:25)
[2021-05-11 20:58] LABS: Basophils % (Auto) 0.4 % (0.0-1.8); Eosinophils # (Auto) 0.1 K/mm3 (0.0-0.4); Eosinophils % (Auto) 2.5 % (0.0-4.3); Hematocrit 43.1 % (35.5-45.6); Hemoglobin 14.9 gm/dl (11.8-15.2); Lymphocytes # (Auto) 1.4 K/mm3 (1.2-5.4); Lymphocytes % (Auto) 24.7 % (13.4-35.0); Mean Corpuscular HGB Conc 35 % (32-34); Mean Corpuscular Volume 93 fl (84-94); Monocytes # (Auto) 0.4 K/mm3 (0.0-0.8); Monocytes % (Auto) 6.7 % (0.0-7.3); Platelet Count 188 K/mm3 (140-440); Red Blood Count 4.65 M/mm3 (3.65-5.03); Red Cell Distribution Width 12.4 % (13.2-15.2)
[2021-05-11 21:08] LABS: BUN/Creatinine Ratio 9; Blood Urea Nitrogen 11 mg/dL (9-20); Calcium 9.4 mg/dL (8.4-10.2); Hemolysis Index 4
[2021-05-11 21:09] LABS: INR 0.94 (0.87-1.13)
[2021-05-11 21:10] LABS: Partial Thromboplastin Time 25.2 Sec. (24.2-36.6)
[2021-05-11] MEDS ORDERED: PROMETHAZINE 25 MG RECT SUPP PR PRN (22:04)
[2021-05-11] MEDS ORDERED: ONDANSETRON 4 MG/2 ML INJ IV PRN ×2 (22:04)
[2021-05-11] MEDS ORDERED: MORPHINE 2 MG/1 ML INJ IV PRN (22:04)
[2021-05-11] MEDS ORDERED: MAGNESIUM HYDROXIDE (MOM) ORAL LIQD UDC PO PRN ×2 (22:04)
[2021-05-11] MEDS ORDERED: ACETAMINOPHEN 325 MG TAB PO PRN ×2 (22:04)
[2021-05-11] MEDS ORDERED: METOCLOPRAMIDE 10 MG TAB PO PRN (22:04)
[2021-05-11] MEDS ORDERED: MORPHINE 4 MG/1 ML INJ IV PRN (22:04)
--- NOTE | 2021-05-11 22:16 | History and Physical Report ---
History of Present Illness Date of examination: 05/11/21 Date of admission: 05/11/21 21:42 Chief complaint: Right-sided weakness Altered mental status History of present illness: 31-year-old -[place] male with known history of depression, seizure disorder, HIV, left MCA stroke in the past was brought into the emergency room by EMS today after being found at a local hospital been altered and aggressive. Patient was stated to be suicidal and homicidal. Upon arrival in the emergency room patient was found to be quite aggressive and was subsequently sedated with Haldol, Benadryl and Vistaril. He has been kept in the mental health section of the emergency room but was later said to be complaining of right-sided weakness. Review of his record did not indicate any right-sided weakness when he had left MCA stroke in November 2020. Right-sided weakness is said to have been ongoing for about a week. He denies any headache or dizziness, no blurry vision, no nausea vomiting, no fever or chills, no chest pain or shortness of breath. Patient denies any sick contacts and no recent travel. Denies any contact with anyone with COVID-19. He denies any auditory or visual hallucinations. Patient was intermittently uncooperative during this history and physical. Work-up in the emergency room today, CT scan of the head showed no hemorrhage. There were chronic ischemic changes in the left posterior temporal lobe since the previous imaging studies, low attenuation left thalamic lacune, age indeterminate, this could be subacute. Labs were unremarkable. Patient will be admitted for his psychosis and also to be ruled out for possible CVA. Past History Past Medical History: hypertension, seizures, stroke (Left MCA stroke in the past), other (Depression with history of suicidal ideations, HIV positive) Past Surgical History: No surgical history Social history: no significant social history Family history: no significant family history Medications and Allergies Allergies Allergy/AdvReac Type Severity Reaction Status Date / Time Penicillins Allergy Unknown Verified 07/31/20 11:34 strawberry [[place]] Allergy Unknown Verified 07/31/20 11:34 Home Medications Medication Instructions Recorded Confirmed Last Taken Type Abacavir Sulfate/Lamivudine 1 each PO DAILY #30 12/02/20 Unknown Rx [Epzicom TAB] Aspirin 325 mg PO QDAY #30 tablet 12/02/20 Unknown Rx Atazanavir Sulfate [Reyataz] 400 mg PO QDAY #30 12/02/20 Unknown Rx AtorvaSTATin [Lipitor] 40 mg PO QHS #30 tablet 12/02/20 Unknown Rx Darunavir [Prezista] 800 mg PO QDAY #30 tablet 12/02/20 Unknown Rx Elviteg/Nicole/Emtric/Tenofo Ala 1 tab PO QDAY #30 tablet 12/02/20 Unknown Rx [Genvoya (Nf)] Imiquimod [[place] 5%] 1 each TP 3XW #60 cream.pack 12/02/20 Unknown Rx Phenytoin [Dilantin] 100 mg PO Q8HR #90 capsule.er 12/02/20 Unknown Rx methOCARBAMOL [Robaxin TAB] 500 mg PO QHS #10 tab 12/02/20 Unknown Rx Active Meds: Active Medications Acetaminophen (Acetaminophen 325 Mg Tab) 650 mg PO Q4H PRN PRN Reason: Pain, Mild (1-3) Acetaminophen (Acetaminophen 325 Mg Tab) 650 mg PO Q4H PRN PRN Reason: Pain MILD(1-3)/Fever >100.5/KHAN Aspirin (Aspirin 325 Mg Tab) 325 mg PO QDAY YNES Atorvastatin Calcium (Atorvastatin 40 Mg Tab) 40 mg PO QHS YNES Bisacodyl (Bisacodyl 10 Mg Rect Supp) [address] QDAY PRN PRN Reason: Constipation Enoxaparin Sodium (Enoxaparin 40 Mg/0.4 Ml Inj) 40 mg SUB-Q QDAY@2200 YNES; Protocol Magnesium Hydroxide (Magnesium Hydroxide (Mom) Oral Liqd Udc) 30 ml PO Q4H PRN PRN Reason: Constipation Magnesium Hydroxide (Magnesium Hydroxide (Mom) Oral Liqd Udc) 30 ml PO Q4H PRN PRN Reason: Constipation Metoclopramide HCl (Metoclopramide 10 Mg Tab) 10 mg PO Q6H PRN PRN Reason: Nausea And Vomiting Morphine Sulfate (Morphine 2 Mg/1 Ml Inj) 2 mg IV Q4H PRN PRN Reason: Pain, Moderate (4-6) Morphine Sulfate (Morphine 4 Mg/1 Ml Inj) 4 mg IV Q4H PRN PRN Reason: Pain , Severe (7-10) Ondansetron HCl (Ondansetron 4 Mg/2 Ml Inj) 4 mg IV Q8H PRN PRN Reason: Nausea And Vomiting Ondansetron HCl (Ondansetron 4 Mg/2 Ml Inj) 4 mg IV Q8H PRN PRN Reason: Nausea And Vomiting Promethazine HCl (Promethazine 25 Mg Rect Supp) [address] Q6H PRN PRN Reason: Nausea And Vomiting Sodium Chloride (Sodium Chloride 0.9% 10 Ml Flush Syringe) 10 ml INJ PRN PRN PRN Reason: LINE FLUSH Sodium Chloride (Sodium Chloride 0.9% 10 Ml Flush Syringe) 10 ml IV BID YNES Sodium Chloride (Sodium Chloride 0.9% 10 Ml Flush Syringe) 10 ml IV PRN PRN PRN Reason: LINE FLUSH Review of Systems Constitutional: no fever, no chills Ears, nose, mouth and throat: no nasal congestion, no sore throat Cardiovascular: no chest pain, no palpitations Respiratory: no cough, no shortness of breath, no wheezing Gastrointestinal: no abdominal pain, no nausea, no vomiting, no diarrhea Genitourinary Male: no dysuria, no hematuria, no flank pain Musculoskeletal: no neck pain, no low back pain Integumentary: no rash, no pruritis Neurological: weakness (Right-sided weakness), confusion, no parathesias, no tremors, no headaches Psychiatric: suicidal ideation, depression, irritability Exam - Constitutional Vitals: Temp Pulse Resp BP Pulse Ox 98.6 F 77 18 135/91 99 05/11/21 19:50 05/11/21 19:50 05/11/21 19:50 05/11/21 19:50 05/11/21 19:50 General appearance: Present: no acute distress, well-nourished - EENT Eyes: Present: PERRL, EOM intact. Absent: scleral icterus ENT: hearing intact, clear oral mucosa, dentition normal - Neck Neck: Present: supple, normal ROM - Respiratory Respiratory effort: normal Respiratory: bilateral: CTA - Cardiovascular Rhythm: regular Heart Sounds: Present: S1 & S2. Absent: gallop, systolic murmur, diastolic murmur, rub, click - Extremities Extremities: no ischemia, pulses intact, pulses symmetrical, No edema, normal temperature, normal color, Full ROM Peripheral Pulses: within normal limits - Abdominal General gastrointestinal: Present: soft, non-tender, non-distended, normal bowel sounds. Absent: mass - Integumentary Integumentary: Present: clear, warm, dry - Musculoskeletal Musculoskeletal: right sided weakness - Psychiatric Psychiatric: cooperative, agitated (Intermittently agitated) - Neurologic Neurologic: CNII-XII intact, no focal deficits, moves all extremities (Strength is 1/5 from right upper and right lower extremity and 5/5 on left upper and left lower extremity.) Results - Labs CBC & Chem 7: 05/11/21 20:12 05/11/21 20:12 Labs: Abnormal lab results 05/11/21 05/11/21 05/11/21 Range/Units 20:12 20:12 20:12 MCHC 35 H (32-34) % RDW 12.4 L (13.2-15.2) % Carbon Dioxide 21 L (22-30) mmol/L Salicylates < 0.3 L (2.8-20.0) mg/dL Acetaminophen (10.0-30.0) ug/mL 05/11/21 Range/Units 20:12 MCHC (32-34) % RDW (13.2-15.2) % Carbon Dioxide (22-30) mmol/L Salicylates (2.8-20.0) mg/dL Acetaminophen 5.0 L (10.0-30.0) ug/mL Assessment and Plan - Patient Problems (1) Acute psychosis Current Visit: Yes Status: Acute Plan to address problem: Possibly secondary to these history of depression. Patient was said to have had homicidal and suicidal ideations earlier in the day. He will be monitored closely. We will resume routine home medications and also schedule follow-up with mental health. (2) CVA (cerebral vascular accident) Current Visit: Yes Status: Acute Plan to address problem: Patient has had right-sided weakness. Will rule out CVA. He has had left MCA stroke in the past. We will schedule patient for MRI of the brain, carotid Doppler and echocardiogram. Patient started on daily aspirin. We will request physical therapy consult. We will also request neurology follow-up. (3) Hypertension Current Visit: No Status: Acute Qualifiers: Hypertension type: essential hypertension Plan to address problem: Resume routine home medications and monitor vital signs closely. (4) HIV (human immunodeficiency virus infection) Current Visit: No Status: Chronic Qualifiers: HIV symptom status: asymptomatic, with no history of HIV-related illness Qualified Code(s): Z21 - Asymptomatic human immunodeficiency virus [HIV] infection status Plan to address problem: We will resume patient's routine home medications. Viral load and CD4 count unknown. (5) Seizure disorder Current Visit: No Status: Chronic Plan to address problem: Patient will be placed on seizure precautions. We will resume routine home medications. (6) DVT prophylaxis Current Visit: No Status: Acute Plan to address problem: Patient placed on subcutaneous Lovenox. (7) Full code status Current Visit: Yes Status: Acute Plan to address problem: Patient is full code.
[2021-05-12] MEDS: PHENYTOIN 100 MG CAPSULE.ER PO SCH ×3 (05:38→21:51)
[2021-05-12 05:56] LABS: Basophils % (Auto) 0.4 % (0.0-1.8); Eosinophils # (Auto) 0.2 K/mm3 (0.0-0.4); Eosinophils % (Auto) 4.3 % (0.0-4.3); Hematocrit 41.9 % (35.5-45.6); Hemoglobin 14.4 gm/dl (11.8-15.2); Lymphocytes # (Auto) 1.4 K/mm3 (1.2-5.4); Lymphocytes % (Auto) 34.2 % (13.4-35.0); Mean Corpuscular HGB Conc 35 % (32-34); Mean Corpuscular Volume 93 fl (84-94); Monocytes # (Auto) 0.3 K/mm3 (0.0-0.8); Monocytes % (Auto) 8.2 % (0.0-7.3); Platelet Count 183 K/mm3 (140-440); Red Cell Distribution Width 12.3 % (13.2-15.2)
[2021-05-12 06:10] LABS: BUN/Creatinine Ratio 10; Blood Urea Nitrogen 10 mg/dL (9-20); Calcium 9.3 mg/dL (8.4-10.2); Chol/HDL Ratio 5.58 %; HDL Cholesterol 34 mg/dL (40-59); Hemolysis Index 8; LDL Cholesterol,Direct 150 mg/dL (50-130)
--- NOTE | 2021-05-12 08:36 | Consultation ---
History of Present Illness Consult date: 05/12/21 Reason for Consult: Psychosis and right side weakness , History of present illness: Right-sided weakness Altered mental status History of present illness: 31-year-old -[place] male with known history of depression, seizure disorder, HIV, left MCA stroke in the past was brought into the emergency room by EMS today after being found at a local hospital been altered and aggressive. Patient was stated to be suicidal and homicidal. Upon arrival in the emergency room patient was found to be quite aggressive and was subsequently sedated with Haldol, Benadryl and Vistaril. He has been kept in the mental health section of the emergency room but was later said to be complaining of right-sided weakness. Review of his record did not indicate any right-sided weakness when he had left MCA stroke in November 2020. Right-sided weakness is said to have been ongoing for about a week. He denies any headache or dizziness, no blurry vision, no nausea vomiting, no fever or chills, no chest pain or shortness of breath. Patient denies any sick contacts and no recent travel. Denies any contact with anyone with COVID-19. He denies any auditory or visual hallucinations. Patient was intermittently uncooperative during this history and physical. Work-up in the emergency room today, CT scan of the head showed no hemorrhage. There were chronic ischemic changes in the left posterior temporal lobe since the previous imaging studies, low attenuation left thalamic lacune, age indeterminate, this could be subacute. Labs were unremarkable. Patient will be admitted for his psychosis and also to be ruled out for possible CVA. MRI brain this am is remarkable for acute left thalamic infarct -- he is with right side weakness and numbness right upper and to lesser extent lower. he is not sure if he had seizure last week ? according to him he is taking phenytoin for over 10 years Past History Past Medical History: hypertension, seizures, stroke (Left MCA stroke in the past), other (Depression with history of suicidal ideation, HIV positive) Past Surgical History: No surgical history Social history: no significant social history Family history: no significant family history Medications and Allergies Allergies Allergy/AdvReac Type Severity Reaction Status Date / Time Penicillins Allergy Unknown Verified 07/31/20 11:34 strawberry [[place]] Allergy Unknown Verified 07/31/20 11:34 Home Medications Medication Instructions Recorded Confirmed Last Taken Type Abacavir Sulfate/Lamivudine 1 each PO DAILY #30 12/02/20 Unknown Rx [Epzicom TAB] Aspirin 325 mg PO QDAY #30 tablet 12/02/20 Unknown Rx Atazanavir Sulfate [Reyataz] 400 mg PO QDAY #30 12/02/20 Unknown Rx AtorvaSTATin [Lipitor] 40 mg PO QHS #30 tablet 12/02/20 Unknown Rx Darunavir [Prezista] 800 mg PO QDAY #30 tablet 12/02/20 Unknown Rx Elviteg/Nicole/Emtric/Tenofo Ala 1 tab PO QDAY #30 tablet 12/02/20 Unknown Rx [Genvoya (Nf)] Imiquimod [Aldara 5%] 1 each TP 3XW #60 cream.pack 12/02/20 Unknown Rx Phenytoin [Dilantin] 100 mg PO Q8HR #90 capsule.er 12/02/20 Unknown Rx methOCARBAMOL [Robaxin TAB] 500 mg PO QHS #10 tab 12/02/20 Unknown Rx Active Meds: Active Medications Acetaminophen (Acetaminophen 325 Mg Tab) 650 mg PO Q4H PRN PRN Reason: Pain, Mild (1-3) Acetaminophen (Acetaminophen 325 Mg Tab) 650 mg PO Q4H PRN PRN Reason: Pain MILD(1-3)/Fever >100.5/KHAN Aspirin (Aspirin 325 Mg Tab) 325 mg PO QDAY YNES Atorvastatin Calcium (Atorvastatin 40 Mg Tab) 40 mg PO QHS YNES Bisacodyl (Bisacodyl 10 Mg Rect Supp) 10 mg AL QDAY PRN PRN Reason: Constipation Enoxaparin Sodium (Enoxaparin 40 Mg/0.4 Ml Inj) 40 mg SUB-Q QDAY@2200 YNES; Protocol Magnesium Hydroxide (Magnesium Hydroxide (Mom) Oral Liqd Udc) 30 ml PO Q4H PRN PRN Reason: Constipation Magnesium Hydroxide (Magnesium Hydroxide (Mom) Oral Liqd Udc) 30 ml PO Q4H PRN PRN Reason: Constipation Metoclopramide HCl (Metoclopramide 10 Mg Tab) 10 mg PO Q6H PRN PRN Reason: Nausea And Vomiting Morphine Sulfate (Morphine 2 Mg/1 Ml Inj) 2 mg IV Q4H PRN PRN Reason: Pain, Moderate (4-6) Morphine Sulfate (Morphine 4 Mg/1 Ml Inj) 4 mg IV Q4H PRN PRN Reason: Pain , Severe (7-10) Ondansetron HCl (Ondansetron 4 Mg/2 Ml Inj) 4 mg IV Q8H PRN PRN Reason: Nausea And Vomiting Ondansetron HCl (Ondansetron 4 Mg/2 Ml Inj) 4 mg IV Q8H PRN PRN Reason: Nausea And Vomiting Promethazine HCl (Promethazine 25 Mg Rect Supp) 25 mg AL Q6H PRN PRN Reason: Nausea And Vomiting Sodium Chloride (Sodium Chloride 0.9% 10 Ml Flush Syringe) 10 ml INJ PRN PRN PRN Reason: LINE FLUSH Sodium Chloride (Sodium Chloride 0.9% 10 Ml Flush Syringe) 10 ml IV BID YNES Sodium Chloride (Sodium Chloride 0.9% 10 Ml Flush Syringe) 10 ml IV PRN PRN PRN Reason: LINE FLUSH Review of Systems Constitutional: no fever, no chills Ears, nose, mouth and throat: no nasal congestion, no sore throat Cardiovascular: no chest pain, no palpitations Respiratory: no cough, no shortness of breath, no wheezing Gastrointestinal: no abdominal pain, no nausea, no vomiting, no diarrhea Genitourinary Male: no dysuria, no hematuria, no flank pain Musculoskeletal: no neck pain, no low back pain Integumentary: no rash, no pruritis Neurological: weakness (Right-sided weakness), confusion, no parathesias, no tremors, no headaches Psychiatric: suicidal ideation, depression, irritability Past History Past Medical History: hypertension, seizures, stroke (Left MCA stroke in the past), other (Depression with history of suicidal ideations, HIV positive) Past Surgical History: No surgical history Social history: no significant social history Family history: no significant family history Medications and Allergies Allergies Allergy/AdvReac Type Severity Reaction Status Date / Time Penicillins Allergy Unknown Verified 07/31/20 11:34 strawberry [[place]] Allergy Unknown Verified 07/31/20 11:34 Home Medications Medication Instructions Recorded Confirmed Last Taken Type Abacavir Sulfate/Lamivudine 1 each PO DAILY #30 12/02/20 05/12/21 Unknown Rx [Epzicom TAB] Aspirin 325 mg PO QDAY #30 tablet 12/02/20 05/12/21 Unknown Rx Atazanavir Sulfate [Reyataz] 400 mg PO QDAY #30 12/02/20 05/12/21 Unknown Rx AtorvaSTATin [Lipitor] 40 mg PO QHS #30 tablet 12/02/20 05/12/21 Unknown Rx Darunavir [Prezista] 800 mg PO QDAY #30 tablet 12/02/20 05/12/21 Unknown Rx Elviteg/Nicole/Emtric/Tenofo Ala 1 tab PO QDAY #30 tablet 12/02/20 05/12/21 Unknown Rx [Genvoya (Nf)] Imiquimod [Aldara 5%] 1 each TP 3XW #60 cream.pack 12/02/20 05/12/21 Unknown Rx Phenytoin [Dilantin] 100 mg PO Q8HR #90 capsule.er 12/02/20 05/12/21 Unknown Rx methOCARBAMOL [Robaxin TAB] 500 mg PO QHS #10 tab 12/02/20 05/12/21 Unknown Rx Active Meds: Active Medications Acetaminophen (Acetaminophen 325 Mg Tab) 650 mg PO Q4H PRN PRN Reason: Pain MILD(1-3)/Fever >100.5/KHAN Aspirin (Aspirin 325 Mg Tab) 325 mg PO QDAY YNES Atorvastatin Calcium (Atorvastatin 40 Mg Tab) 40 mg PO QHS YNES Bisacodyl (Bisacodyl 10 Mg Rect Supp) 10 mg AL QDAY PRN PRN Reason: Constipation Darunavir (Darunavir 800 Mg Tab) 800 mg PO QDAY YNES Enoxaparin Sodium (Enoxaparin 40 Mg/0.4 Ml Inj) 40 mg SUB-Q QDAY@2200 YNES; Protocol Magnesium Hydroxide (Magnesium Hydroxide (Mom) Oral Liqd Udc) 30 ml PO Q4H PRN PRN Reason: Constipation Metoclopramide HCl (Metoclopramide 10 Mg Tab) 10 mg PO Q6H PRN PRN Reason: Nausea And Vomiting Miscellaneous Medication (Abacavir Sulfate/Lamivudine [Epzicom Tab]) 1 each PO DAILY YNES Miscellaneous Medication (Atazanavir Sulfate [Reyataz]) 400 mg PO QDAY YNES Miscellaneous Medication (Elviteg/Nicole/Emtric/Tenofo Ala) 1 tab PO QDAY YNES Miscellaneous Medication (Imiquimod [Aldara 5%]) 1 each TP 3XW YNES Morphine Sulfate (Morphine 2 Mg/1 Ml Inj) 2 mg IV Q4H PRN PRN Reason: Pain, Moderate (4-6) Morphine Sulfate (Morphine 4 Mg/1 Ml Inj) 4 mg IV Q4H PRN PRN Reason: Pain , Severe (7-10) Ondansetron HCl (Ondansetron 4 Mg/2 Ml Inj) 4 mg IV Q8H PRN PRN Reason: Nausea And Vomiting Phenytoin (Phenytoin 100 Mg Capsule.Er) 100 mg PO Q8HR [facility] Last Admin: 05/12/21 05:38 Dose: 100 mg Documented by: Promethazine HCl (Promethazine 25 Mg Rect Supp) 25 mg AL Q6H PRN PRN Reason: Nausea And Vomiting Sodium Chloride (Sodium Chloride 0.9% 10 Ml Flush Syringe) 10 ml IV BID YNES Sodium Chloride (Sodium Chloride 0.9% 10 Ml Flush Syringe) 10 ml IV PRN PRN PRN Reason: LINE FLUSH Physical Examination - Vital Signs Vital Signs: Vital Signs Temp Pulse Resp BP Pulse Ox 98 F 111 H 20 140/90 98 05/11/21 16:07 05/11/21 16:07 05/11/21 16:07 05/11/21 16:07 05/11/21 16:07 - Constitutional General appearance: comfortable - EENT EENT: Present: PERRL, mucous membranes moist - Respiratory Respiratory: Present: chest non-tender, lungs clear, rhonchi - Cardiovascular Cardiovascular: Present: regular rate, normal S1, normal S2 Extremities: Present: no peripheral edema bilatateraly, no clubbing, cyanosis - Gastrointestinal Gastrointestinal: Present: normoactive bowel sounds - Integumentary Integumentary: Present: normal - Neurologic Cranial nerve examination: PERRL, EOMI, intact Speech examination: intact Sensorimotor examination: other (right side weakness upper 2/5 and lower mainly right foot with slight difficulty walking , and slight sensory impairment upper and lower) - Level of Consciousness 1a. Level of Consciousness: alert/keenly responsive - LOC Questions 1b. LOC Questions: answers both correctly - LOC Command 1c. LOC Commands: performs tasks correctly - Best Gaze 2. Best Gaze: normal - Visual 3. Visual: no visual loss - Facial Palsy 4. Facial Palsy: normal symmetrical movement - Motor Arm 5a. Motor Arm Left: no drift 5b. Motor Arm Right: some gravity effort - Motor Leg 6a. Motor Leg Left: no drift 6b. Motor Leg Right: drift - Limb Ataxia 7. Limb Ataxia: absent - Sensory 8. Sensory: mild/moderate sensory loss - Best Language 9. Best Language: no aphasia - Dysarthria 10. Dysarthria: normal - Extinction and Inattention 11. Extinction/Inattention: no abnormality - Scoring Total Score: 4 Stroke Severity: Minor Stroke Results - Laboratory Findings CBC and BMP: 05/12/21 04:49 05/12/21 04:49 Abnormal Lab Findings: Abnormal Labs 05/11/21 05/11/21 05/11/21 20:12 20:12 20:12 WBC MCHC 35 H RDW 12.4 L [place] % (Auto) Carbon Dioxide 21 L LDL Cholesterol Direct HDL Cholesterol Salicylates < 0.3 L Acetaminophen 05/11/21 05/12/21 05/12/21 20:12 04:49 04:49 WBC 4.1 L MCHC 35 H RDW 12.3 L [place] % (Auto) 8.2 H Carbon Dioxide LDL Cholesterol Direct 150 H HDL Cholesterol 34 L Salicylates Acetaminophen 5.0 L Assessment and Plan Assessment and Plan # CVA (cerebral vascular accident) -Patient has had right-sided weakness since fried rule out CVA. -He has had left MCA stroke in the past. -Ct brain is remarkable for remote left temporal infarct -MRI of the brain is remarkable for acute left thalamic infarct - carotid Doppler showed <50% bilateral -echocardiogram is pending -Patient started on daily aspirin. - physical therapy consult. -CTA brain and neck are pending -ESR,ADRIANNE,b12, homocystein -Cardiac monitering # Acute psychosis Possibly secondary to these history of depression. Patient was said to have had homicidal and suicidal ideation earlier in the day. He will be monitored closely. We will resume routine home medications and also schedule follow-up with mental health. # Hypertension -Resume routine home medications and monitor vital signs closely. # HIV (human immunodeficiency virus infection) We will resume patient's routine home medications. Viral load and CD4 count unknown. # Seizure disorder Patient will be placed on seizure precautions. We will resume routine home medications. -MRI with gd is noted -EEG -Phenytoin level # DVT prophylaxis Patient placed on subcutaneous Lovenox. # Full code status Patient is full code. will follow
--- NOTE | 2021-05-12 08:46 | Progress Note ---
Assessment and Plan Assessment and plan: Acute psychosis History of depression Homicidal and suicidal ideations History CVA Hypertension HIV Seizure disorder 05/12/2021. Patient has had a previous left MCA CVA. Follow-up MRI, carotid Dopp ler and echocardiogram. Continue seizure medications and seizure precautions. Neurology following. Await psychiatric evaluation for homicidal/suicidal ideations and acute psychosis. Continue 1013. History Interval history: No new issues overnight Hospitalist Physical - Constitutional Vitals: Temp Pulse Resp BP Pulse Ox 98.1 F 63 21 100/62 98 05/12/21 01:23 05/12/21 04:10 05/12/21 04:10 05/12/21 04:10 05/12/21 04:10 General appearance: Present: no acute distress, well-nourished - EENT Eyes: Present: PERRL, EOM intact ENT: hearing intact, clear oral mucosa, dentition normal - Neck Neck: Present: supple, normal ROM - Respiratory Respiratory effort: normal Respiratory: bilateral: CTA - Cardiovascular Rhythm: regular Heart Sounds: Present: S1 & S2. Absent: gallop, rub - Extremities Extremities: no ischemia, No edema, Full ROM - Abdominal General gastrointestinal: soft, non-tender, non-distended, normal bowel sounds - Integumentary Integumentary: Present: clear, warm, dry - Neurologic Neurologic: CNII-XII intact, moves all extremities Results - Labs CBC & Chem 7: 05/12/21 04:49 05/12/21 04:49 Labs: Laboratory Last Values WBC 4.1 K/mm3 (4.5-11.0) L 05/12/21 04:49 RBC 4.50 M/mm3 (3.65-5.03) 05/12/21 04:49 Hgb 14.4 gm/dl (11.8-15.2) 05/12/21 04:49 Hct 41.9 % (35.5-45.6) 05/12/21 04:49 MCV 93 fl (84-94) 05/12/21 04:49 MCH 32 pg (28-32) 05/12/21 04:49 MCHC 35 % (32-34) H 05/12/21 04:49 RDW 12.3 % (13.2-15.2) L 05/12/21 04:49 Plt Count 183 K/mm3 (140-440) 05/12/21 04:49 Lymph % (Auto) 34.2 % (13.4-35.0) 05/12/21 04:49 [place] % (Auto) 8.2 % (0.0-7.3) H 05/12/21 04:49 Eos % (Auto) 4.3 % (0.0-4.3) 05/12/21 04:49 Baso % (Auto) 0.4 % (0.0-1.8) 05/12/21 04:49 Lymph # (Auto) 1.4 K/mm3 (1.2-5.4) 05/12/21 04:49 [place] # (Auto) 0.3 K/mm3 (0.0-0.8) 05/12/21 04:49 Eos # (Auto) 0.2 K/mm3 (0.0-0.4) 05/12/21 04:49 Baso # (Auto) 0.0 K/mm3 (0.0-0.1) 05/12/21 04:49 Seg Neutrophils % 52.9 % (40.0-70.0) 05/12/21 04:49 Seg Neutrophils # 2.2 K/mm3 (1.8-7.7) 05/12/21 04:49 PT 13.2 Sec. (12.2-14.9) 05/11/21 20:12 INR 0.94 (0.87-1.13) 05/11/21 20:12 APTT 25.2 Sec. (24.2-36.6) 05/11/21 20:12 Thrombin Time 18.0 Sec. (15.1-19.6) 05/11/21 20:12 Sodium 139 mmol/L (137-145) 05/12/21 04:49 Potassium 3.6 mmol/L (3.6-5.0) 05/12/21 04:49 Chloride 104.2 mmol/L (98-107) 05/12/21 04:49 Carbon Dioxide 24 mmol/L (22-30) 05/12/21 04:49 Anion Gap 14 mmol/L 05/12/21 04:49 BUN 10 mg/dL (9-20) 05/12/21 04:49 Creatinine 1.0 mg/dL (0.8-1.3) 05/12/21 04:49 Estimated GFR > 60 ml/min 05/12/21 04:49 BUN/Creatinine Ratio 10 % 05/12/21 04:49 Glucose 94 mg/dL (75-100) 05/12/21 04:49 Calcium 9.3 mg/dL (8.4-10.2) 05/12/21 04:49 Triglycerides 96 mg/dL (2-149) 05/12/21 04:49 Cholesterol 190 mg/dL (50-199) 05/12/21 04:49 LDL Cholesterol Direct 150 mg/dL (50-130) H 05/12/21 04:49 HDL Cholesterol 34 mg/dL (40-59) L 05/12/21 04:49 Cholesterol/HDL Ratio 5.58 % 05/12/21 04:49 Salicylates < 0.3 mg/dL (2.8-20.0) L 05/11/21 20:12 Acetaminophen 5.0 ug/mL (10.0-30.0) L 05/11/21 20:12 Plasma/Serum Alcohol < 0.01 % (0-0.07) 05/11/21 20:12 Schreiber/IV: Voiding Method Urinal Active Medications - Current Medications Current Medications: Generic Name Dose Route Start Last Admin Trade Name Freq PRN Reason Stop Dose Admin Acetaminophen 650 mg 05/11/21 22:04 Acetaminophen 325 Mg Tab PO Q4H PRN Pain MILD(1-3)/Fever >100.5/KHAN Aspirin 325 mg 05/12/21 10:00 Aspirin 325 Mg Tab PO QDAY COUNTS INCLUDE 234 BEDS AT THE [facility] Atorvastatin Calcium 40 mg 05/12/21 22:00 Atorvastatin 40 Mg Tab PO QHS YNES Bisacodyl 10 mg 05/11/21 22:04 Bisacodyl 10 Mg Rect Supp ND QDAY PRN Constipation Darunavir 800 mg 05/12/21 10:00 Darunavir 800 Mg Tab PO QDAY COUNTS INCLUDE 234 BEDS AT THE [facility] Enoxaparin Sodium 40 mg 05/12/21 22:00 Enoxaparin 40 Mg/0.4 Ml Inj SUB-Q QDAY@2200 COUNTS INCLUDE 234 BEDS AT THE [facility] Protocol Magnesium Hydroxide 30 ml 05/11/21 22:04 Magnesium Hydroxide (Mom) Oral Liqd Udc PO Q4H PRN Constipation Metoclopramide HCl 10 mg 05/11/21 22:04 Metoclopramide 10 Mg Tab PO Q6H PRN Nausea And Vomiting Miscellaneous Medication 1 each 05/12/21 10:00 Abacavir Sulfate/Lamivudine [Epzicom Tab] PO DAILY COUNTS INCLUDE 234 BEDS AT THE [facility] Miscellaneous Medication 400 mg 05/12/21 10:00 Atazanavir Sulfate [Reyataz] PO QDAY COUNTS INCLUDE 234 BEDS AT THE [facility] Miscellaneous Medication 1 tab 05/12/21 10:00 Elviteg/Nicole/Emtric/Tenofo Ala PO QDAY COUNTS INCLUDE 234 BEDS AT THE [facility] Miscellaneous Medication 1 each 05/12/21 10:00 Imiquimod [Aldara 5%] TP 3XW COUNTS INCLUDE 234 BEDS AT THE [facility] Morphine Sulfate 2 mg 05/11/21 22:04 Morphine 2 Mg/1 Ml Inj IV Q4H PRN Pain, Moderate (4-6) Morphine Sulfate 4 mg 05/11/21 22:04 Morphine 4 Mg/1 Ml Inj IV Q4H PRN Pain , Severe (7-10) Ondansetron HCl 4 mg 05/11/21 22:04 Ondansetron 4 Mg/2 Ml Inj IV Q8H PRN Nausea And Vomiting Phenytoin 100 mg 05/12/21 06:00 05/12/21 05:38 Phenytoin 100 Mg Capsule.Er PO 100 mg Q8HR YNES Administration Promethazine HCl 25 mg 05/11/21 22:04 Promethazine 25 Mg Rect Supp ND Q6H PRN Nausea And Vomiting Sodium Chloride 10 ml 05/12/21 10:00 Sodium Chloride 0.9% 10 Ml Flush Syringe IV BID YNES Sodium Chloride 10 ml 05/11/21 22:04 Sodium Chloride 0.9% 10 Ml Flush Syringe IV PRN PRN LINE FLUSH
--- NOTE | 2021-05-12 09:51 | Vascular Lab Report ---
DUPLEX DOPPLER ULTRASOUND CAROTID, BILATERAL INDICATION / CLINICAL INFORMATION: stroke. COMPARISON: None available. FINDINGS: RIGHT CAROTID: - PLAQUE ESTIMATE (%): < 50% - CCA velocity: 116 cm/sec. - ICA peak systolic velocity: 112 cm/sec. - ICA/CCA PSV Ratio: Less than 2 Right Vertebral Artery: Antegrade flow. LEFT CAROTID: - PLAQUE ESTIMATE (%): < 50% - CCA velocity: 103 cm/sec. - ICA peak systolic velocity: 109 cm/sec. - ICA/CCA PSV Ratio: Less than 2 Left Vertebral Artery: Antegrade flow. IMPRESSION: 1. Right Internal Carotid Artery: Less than 50% diameter stenosis. 2. Left Internal Carotid Artery: Less than 50% diameter stenosis. Velocity criteria are extrapolated from diameter data as defined by the Society of Radiologists in Ul trasound Consensus Conference, Radiology 2003; 229;340-346. NO STENOSIS (NORMAL) - Plaque = none; ICA PSV < 125 cm/sec; ICA/CCA PSV Ratio < 2.0 <50% STENOSIS - Plaque < 50%; ICA PSV < 125 cm/sec; ICA/CCA PSV Ratio < 2.0 50-69% STENOSIS - Plaque > 50%; ICA PSV = 125-230 cm/sec; ICA/CCA PSV Ratio = 2.0-4.0 >70% BUT <100% STENOSIS - Plaque > 50%; ICA PSV > 230 cm/sec; ICA/CCA PSV Ratio > 4.0 NEAR OCCLUSION - Plaque = visible lumen; ICA PSV = high/low/none; ICA/CCA PSV Ratio = variable TOTAL OCCLUSION - Plaque = no lumen; ICA PSV = none; ICA/CCA PSV Ratio = N/A Signer Name: Ameya Bradley MD Signed: 05/12/2021 9:47 AM Workstation Name: [id number]
[2021-05-12] MEDS ORDERED: IMIQUIMOD TP SCH (10:00)
[2021-05-12] MEDS ORDERED: ATAZANAVIR PO SCH (10:00)
[2021-05-12] MEDS ORDERED: LAMIVUDINE PO SCH (10:00)
[2021-05-12] MEDS ORDERED: ABACAVIR SULFATE PO SCH (10:00)
[2021-05-12] MEDS ORDERED: DARUNAVIR 800 MG TAB PO SCH (10:00)
[2021-05-12] MEDS ORDERED: [UNRECOGNIZED DRUG - OTHER] PO SCH (10:00)
[2021-05-12] MEDS: ASPIRIN 325 MG TAB PO SCH (10:36)
--- NOTE | 2021-05-12 11:02 | Consultation ---
History of Present Illness - Reason for Consult Consult date: 05/12/21 Reason for consult: Altered Mental Status - History of Present Psychiatric Illness Leonardo Fallon is a 31y/o male who was brought to the hospital for AMS, and agitation. The patient later c/o right sided weakness. During my interview with the patient he is talkative and laughing at times. He is a/o x 2. He did not know who the [place] President was, he says "I don't keep up with all that. I don't even care. All I know is that I look good." He then laughs out loud. The patient denies any psychiatric history or being on any psych medications. He says "this is the hospital they brought me to. Those people thought I was crazy." He says "just because this nurse came in my room and I didn't do what she wanted me to do." He says my real reason for being here is "I can't move my right arm. It was working but all week it's giving me problems." He denies hallucinations of any kind. He laughs and says "I aint that crazy." The patient also denies SI/HI. He says "no, no, they saying stuff because they were trying to make me do stuff I didn't want to do at that other place." The patient denies any illicit drug use, alcohol or nicotine. PAST PSYCHIATRIC HISTORY: Diagnoses: Denies Suicide attempts or Self-harm behavior: Denies Prior psychiatric hospitalizations: Denies Substance Abuse history: Denies Previous psychiatric medications tried: Denies Outpatient treatment: Denies PAST MEDICAL HISTORY: HIV, Sz Family Psychiatric History: None reported or documented SOCIAL HISTORY Marital Status: single Living Arrangements: with family Employment Status: Unemployed Access to guns/weapons: Denies Education: History of Abuse: denies Legal History: Denies REVIEW OF SYSTEMS Constitutional: Negative for weight loss ENT: Negative for stridor Respiratory: Negative for cough or hemoptysis All other systems reviewed and are negative MENTAL STATUS EXAMINATION General Appearance and Behavior: Age appropriate, good hygiene, wearing appropriate clothes. Cooperation: Cooperative Psychomotor Behavior: Psychomotor normal Mood: fine Affect and affective range: congruent with stated mood Thought Process: circumstantial Thought Content: None Speech: Normal volume, Regular rate and rhythm, Suicidal Ideation: Denies Homicidal Ideation: Denies Hallucinations: Denies Delusions: None elicited Impulse Control: Limited Insight and Judgment: Poor Memory: Limited Attention: attentive Orientation: alert and oriented Assessment and Plan (1)Altered Mental Status Current Visit: Yes Status: Acute Treatment Plan d/c 1013 Geodon 20mg IM q4h prn agitation Sitter: Defer to primary Medical: Per primary Disposition: Do not recommend acute psychiatric inpatient at this time. However, this may change once medically clear. Will continue to follow for psych progress. Will follow. Thanks Case staffed with Dr. Pineda Medications and Allergies Allergies Allergy/AdvReac Type Severity Reaction Status Date / Time Penicillins Allergy Unknown Verified 07/31/20 11:34 strawberry [Cascadia] Allergy Unknown Verified 07/31/20 11:34 Home Medications Medication Instructions Recorded Confirmed Last Taken Type Abacavir Sulfate/Lamivudine 1 each PO DAILY #30 12/02/20 05/12/21 Unknown Rx [Epzicom TAB] Aspirin 325 mg PO QDAY #30 tablet 12/02/20 05/12/21 Unknown Rx Atazanavir Sulfate [Reyataz] 400 mg PO QDAY #30 12/02/20 05/12/21 Unknown Rx AtorvaSTATin [Lipitor] 40 mg PO QHS #30 tablet 12/02/20 05/12/21 Unknown Rx Darunavir [Prezista] 800 mg PO QDAY #30 tablet 12/02/20 05/12/21 Unknown Rx Elviteg/Nicole/Emtric/Tenofo Ala 1 tab PO QDAY #30 tablet 12/02/20 05/12/21 Unknown Rx [Genvoya (Nf)] Imiquimod [Aldara 5%] 1 each TP 3XW #60 cream.pack 12/02/20 05/12/21 Unknown Rx Phenytoin [Dilantin] 100 mg PO Q8HR #90 capsule.er 12/02/20 05/12/21 Unknown Rx methOCARBAMOL [Robaxin TAB] 500 mg PO QHS #10 tab 12/02/20 05/12/21 Unknown Rx Active Meds: Active Medications Acetaminophen (Acetaminophen 325 Mg Tab) 650 mg PO Q4H PRN PRN Reason: Pain MILD(1-3)/Fever >100.5/KHAN Aspirin (Aspirin 325 Mg Tab) 325 mg PO QDAY YNES Last Admin: 05/12/21 10:36 Dose: 325 mg Documented by: Atorvastatin Calcium (Atorvastatin 40 Mg Tab) 40 mg PO QHS [facility] Bisacodyl (Bisacodyl 10 Mg Rect Supp) 10 mg ID QDAY PRN PRN Reason: Constipation Darunavir (Darunavir 800 Mg Tab) 800 mg PO QDAY [facility] Enoxaparin Sodium (Enoxaparin 40 Mg/0.4 Ml Inj) 40 mg SUB-Q QDAY@2200 YNES; Protocol Magnesium Hydroxide (Magnesium Hydroxide (Mom) Oral Liqd Udc) 30 ml PO Q4H PRN PRN Reason: Constipation Metoclopramide HCl (Metoclopramide 10 Mg Tab) 10 mg PO Q6H PRN PRN Reason: Nausea And Vomiting Miscellaneous Medication (Abacavir Sulfate/Lamivudine [Epzicom Tab]) 1 each PO DAILY [facility] Miscellaneous Medication (Atazanavir Sulfate [Reyataz]) 400 mg PO QDAY [facility] Miscellaneous Medication (Elviteg/Nicole/Emtric/Tenofo Ala) 1 tab PO QDAY [facility] Miscellaneous Medication (Imiquimod [Aldara 5%]) 1 each TP 3XW [facility] Morphine Sulfate (Morphine 2 Mg/1 Ml Inj) 2 mg IV Q4H PRN PRN Reason: Pain, Moderate (4-6) Morphine Sulfate (Morphine 4 Mg/1 Ml Inj) 4 mg IV Q4H PRN PRN Reason: Pain , Severe (7-10) Ondansetron HCl (Ondansetron 4 Mg/2 Ml Inj) 4 mg IV Q8H PRN PRN Reason: Nausea And Vomiting Phenytoin (Phenytoin 100 Mg Capsule.Er) 100 mg PO Q8HR [facility] Last Admin: 05/12/21 05:38 Dose: 100 mg Documented by: Promethazine HCl (Promethazine 25 Mg Rect Supp) 25 mg ID Q6H PRN PRN Reason: Nausea And Vomiting Sodium Chloride (Sodium Chloride 0.9% 10 Ml Flush Syringe) 10 ml IV BID [facility] Last Admin: 05/12/21 10:37 Dose: 10 ml Documented by: Sodium Chloride (Sodium Chloride 0.9% 10 Ml Flush Syringe) 10 ml IV PRN PRN PRN Reason: LINE FLUSH Mental Status Exam - Vital signs Last Vital Signs Temp 98.1 F 05/12/21 01:23 Pulse 63 05/12/21 04:10 Resp 21 05/12/21 04:10 BP 100/62 05/12/21 04:10 Pulse Ox 98 05/12/21 04:10 Results Result Diagrams: 05/12/21 04:49 05/12/21 04:49 Abnormal lab results 05/11/21 05/11/21 05/11/21 Range/Units 20:12 20:12 20:12 WBC (4.5-11.0) K/mm3 MCHC 35 H (32-34) % RDW 12.4 L (13.2-15.2) % [place] % (Auto) (0.0-7.3) % Carbon Dioxide 21 L (22-30) mmol/L LDL Cholesterol Direct (50-130) mg/dL HDL Cholesterol (40-59) mg/dL Salicylates < 0.3 L (2.8-20.0) mg/dL Acetaminophen (10.0-30.0) ug/mL 05/11/21 05/12/21 05/12/21 Range/Units 20:12 04:49 04:49 WBC 4.1 L (4.5-11.0) K/mm3 MCHC 35 H (32-34) % RDW 12.3 L (13.2-15.2) % [place] % (Auto) 8.2 H (0.0-7.3) % Carbon Dioxide (22-30) mmol/L LDL Cholesterol Direct 150 H (50-130) mg/dL HDL Cholesterol 34 L (40-59) mg/dL Salicylates (2.8-20.0) mg/dL Acetaminophen 5.0 L (10.0-30.0) ug/mL All other labs normal.
--- NOTE | 2021-05-12 11:28 | Magnetic Resonance Report ---
MR brain wo/w con INDICATION / CLINICAL INFORMATION: seizure and right side weakness. TECHNIQUE: Multiplanar, multisequence MR images of the brain were obtained. COMPARISON: December 01, 2020. CT head from May 11, 2021 FINDINGS: INTRACRANIAL: Acute restricted diffusion in the left thalamus corresponds to the hypoattenuation seen on prior CT head from yesterday. Unchanged encephalomalacia and gliosis from prior border zone infar ctions as well as in the left lateral temporal lobe from prior infarction which was seen on MRI brain December 01, 2020. No abnormal enhancement. No hemorrhage. Ventricular caliber is normal. No extra-axia l collection. No mass. No herniation. Major intracranial vascular flow voids are preserved. ORBITS: No significant abnormality of visualized orbits. SINUSES / MASTOIDS: No significant abnormality of visualized sinuses and mastoid air cells. ADDITIONAL FINDINGS: None. IMPRESSION: 1. Acute left thalamic infarction which is unchanged from CT from yesterday. Signer Name: Ricci Anderson MD Signed: 05/12/2021 11:24 AM Workstation Name: [id number]
[2021-05-12] MEDS ORDERED: ZIPRASIDONE MESYLATE 20 MG VIAL IM PRN (12:00)
--- NOTE | 2021-05-12 17:43 | Cat Scan Report ---
CTA neck without and with intravenous contrast material CLINICAL HISTORY: CVA TECHNIQUE: Following acquisition of a timing bolus 0.625 mm thick contiguous axial scans were obtained from aort ic arch to the skull base during rapid bolus intravenous contrast infusion. In addition to evaluation of axial source images multiplanar reconstructions were produced and reviewed for this report. 3 blu ne MIP reconstructions were produced and reviewed. Contrast dose report: Omnipaque 350: 100 ml, administered intravenously All CT examinations performed at this facility utilize modulated dose reduction, iterative reconstruc tion or weight-based dosing, as appropriate, to obtain a radiation dose which is as low as can reason ably be achieved. FINDINGS: Thoracic aorta:No abnormalities are identified along the course of the thoracic aorta..The origins of the great vessels have an unremarkable appearance. Brachiocephalic artery, left common carotid arter y origin and left subclavian artery all have an unremarkable appearance. Incidental note is made of a separate origin of the left vertebral artery from the aortic arch. Right carotid artery:No abnormalities are seen along the course of the RCCA, at the right carotid bif urcation or along the cervical portions of the SAMPSON. Left carotid artery: No abnormalities are noted along the course of the left common carotid artery, a t the left carotid bifurcation or along the course of the cervical segments of the LICA. Posterior circulation:The vertebral arteries have an unremarkable appearance. Both vertebral arteries contribute to the basilar artery origin. The basilar artery has an unremarkable appearance. Incident al note is made of a separate origin of the left vertebral artery from the aortic arch rather than fr om the left subclavian artery. The degree of stenosis, if any, is determined utilizing NASCET like criteria. In this case there is no indication of hemodynamically significant stenosis at the carotid bifurcations or elsewhere. Evaluation of the nonvascular soft tissue structures reveal no abnormality. There is no indication of cervical lymphadenopathy. No abnormalities are seen along the course of the airway. Visualized porti ons of the parotid glands and the submandibular salivary glands have a normal appearance. Thyroid gla nd has a normal appearance. Evaluation of the lung apices reveals no evidence of lung nodule or infil trate. Evaluation of the cervical spine revealed no significant abnormalities. IMPRESSION: 1. No indication of hemodynamically significant stenosis at the carotid bifurcations or elsewhere. Signer Name: Javon Cope MD Signed: 05/12/2021 5:38 PM Workstation Name: [id number]
--- NOTE | 2021-05-12 17:47 | Cat Scan Report ---
CT angio neck INDICATION / CLINICAL INFORMATION: 31 years Male; cva. TECHNIQUE: Thin cut axial images obtained through the head during IV bolus contrast administration. S agittal, coronal, and 3 plane MIP reconstructions performed by the technologist. NASCET type criteria used evaluate stenoses. All CT scans at this location are performed using CT dose reduction for ALAR A by means of automated exposure control. COMPARISON: None available. FINDINGS: CAROTID ARTERIES: There is no significant stenosis involving cervical carotid arteries by NASCET crit eria. The carotid bifurcations are widely patent. VERTEBRAL ARTERIES: The left vertebral artery arises directly from the aortic arch; a developmental v ariant. There is no significant focal stenosis involving the vertebral arteries. ARCH: There is also developmental common origin of the brachiocephalic and left common carotid arteri es. There is no significant stenosis of the origins of the arch vessels. ADDITIONAL FINDINGS: Remainder of the surrounding soft tissues are grossly normal. IMPRESSION: There is no significant stenosis involving cervical carotid or vertebral arteries by NASCET criteria. Signer Name: Eusebio Tai MD Signed: 05/12/2021 5:43 PM Workstation Name: [id number]
[2021-05-12] MEDS ORDERED: ENOXAPARIN 40 MG/0.4 ML INJ SUB-Q SCH (22:00)
[2021-05-13] MEDS ORDERED: WATER FOR INJ Sterile (PF) 10 ML ONE (01:01)
[2021-05-13] MEDS: PHENYTOIN 100 MG CAPSULE.ER PO SCH (07:08)
--- NOTE | 2021-05-13 08:02 | Discharge Summary ---
Providers - Providers Date of Admission: 05/11/21 21:42 Date of discharge: 05/13/21 Attending physician: LIZETTE PEARSON 05/11/21 Consult to Physician [CONS] Routine Comment: Consulting Provider: BALJEET ADAMES Physician Instructions: Reason For Exam: RIGHT SIDED WEAKNESS R/O CVA 05/11/21 22:04 Consult to Case Management [CONS] Routine Services Needed at Discharge: Ui U[employer] Engineer Notified:: case therapist Consult to Dietitian/Nutrition [CONS] Routine Physician Instructions: Reason For Exam: Reason for Consult: Nutrition Recommendations Reason for Consult: Diet education Occupational Therapy Evaluate and Treat [CONS] Routine Comment: Reason For Exam: Neuro deficits Physical Therapy Evaluation and Treat [CONS] Routine Comment: Reason For Exam: Neuro deficits 05/11/21 22:06 Speech Therapy Evaluation and Treat [CONS] Routine Reason For Exam: swallow eval 05/11/21 22:09 Consult to Mental Health [CONS] Routine Reason For Exam: HOMICIDAL AND SUICIDAL IDEATIONS,H/O DEPRESSION Primary care physician: [employer] ACCOUNT EXECUTIVE Hospitalization Reason for admission: Right-sided weakness and AMS Condition: Fair Hospital course: 31-year-old -[place] male with known history of depression, seizure disorder, HIV, left MCA stroke in the past was brought into the emergency room by EMS on 05/11 after being found at a local store with altered mentation and aggressiveness. Patient was stated to be suicidal and homicidal. Upon arrival in the emergency room patient was found to be quite aggressive and was subsequently sedated with Haldol, Benadryl and Vistaril. He was kept in the mental health section of the emergency room but was later said to be complaining of right-sided weakness. Review of his record did not indicate any right-sided weakness when he had left MCA stroke in November 2020. Right-sided weakness is said to have been ongoing for about a week. He denied any headache or dizziness, no blurry vision, no nausea vomiting, no fever or chills, no chest pain or shortness of breath. Patient denies any sick contacts and no recent travel. Denies any contact with anyone with COVID-19. He denies any auditory or visual hallucinations. Work-up in the emergency room today, CT scan of the head showed no hemorrhage. There were chronic ischemic changes in the left posterior temporal lobe since the previous imaging studies, low attenuation left thalamic lacune, age indeterminate, this could be subacute. Labs were unremarkable. Patient will be admitted with diagnosis of acute psychosis and CVA. The patient was seen by neurology in consultation and underwent MRI of the brain which was remarkable for acute left thalamic infarct -- he is with right side weakness and numbness right upper and to lesser extent lower. Carotid Doppler revealed less than 50% stenosis bilaterally. Echocardiogram was obtained which is pending. Neurology started the patient on aspirin and Lipitor. Patient also had a CTA of the head and neck that showed no hemodynamically significant stenosis. Physical therapy also evaluated the patient and recommended no acute skilled needs. Patient was felt to be independent with mobility, transfers and ambulation. Gait was felt to be stable and safe. Neurology ordered hypercoagulable work-up with ADRIANNE titers, homocystine as well as an EEG. The studies can be followed up as an outpatient. Patient with no evidence of seizure activity during hospitalization. Dedicated discharge time 35 minutes. Disposition: 01 HOME / SELF CARE / HOMELESS Final Discharge Diagnosis (Prints w/discharge instructions): Acute CVA (thalamic), depression, seizure disorder, HIV, history of a left MCA CVA Core Measure Documentation - Palliative Care Palliative Care/ Comfort Measures: Not Applicable - Core Measures Any of the following diagnoses?: stroke - Stroke Discharge Requirements Statin for LDL = or >70 mg/dl on DC: Yes Anticoag for atrial fib/atrial flutter: Not Applicable Antithrombotic for ischemic stroke: Yes Exam - Constitutional Vitals: Temp Pulse Resp BP Pulse Ox 97.7 F 83 16 139/85 100 05/13/21 03:16 05/13/21 04:00 05/13/21 03:16 05/13/21 03:16 05/13/21 03:16 General appearance: Present: no acute distress, well-nourished - EENT Eyes: Present: PERRL ENT: hearing intact, clear oral mucosa - Neck Neck: Present: supple, normal ROM - Respiratory Respiratory effort: normal Respiratory: bilateral: CTA - Cardiovascular Heart Sounds: Present: S1 & S2. Absent: rub, click - Extremities Extremities: pulses symmetrical, No edema Peripheral Pulses: within normal limits - Abdominal General gastrointestinal: Present: soft, non-tender, non-distended, normal bowel sounds Male genitourinary: Present: normal - Integumentary Integumentary: Present: clear, warm, dry - Musculoskeletal Musculoskeletal: gait normal, strength equal bilaterally - Psychiatric Psychiatric: appropriate mood/affect, intact judgment & insight - Neurologic Neurologic: CNII-XII intact, moves all extremities Plan Activity: advance as tolerated, no driving until cleared by PCP Weight Bearing Status: Weight Bear as Tolerated Diet: low fat, low cholesterol, low salt Follow up with: PRIMARY CARE, [Primary Care Provider] - 3-5 Days Prescriptions: Aspirin 325 mg PO QDAY #30 tablet Citalopram [Celexa] 20 mg PO QDAY #30 Phenytoin [Dilantin] 100 mg PO Q8HR #90 capsule.er levETIRAcetam [Keppra TAB] 1,000 mg PO QDAY #30 AtorvaSTATin [Lipitor] 40 mg PO QHS #30 tablet
[2021-05-13 09:13] VITALS: BP 127/93
--- NOTE | 2021-05-13 09:52 | Electrocardiograph Report ---
[facility] Test Date: 2021-05-12 Test Time: 00:30:57 Pat Name: LUIS E CHOUDHURY Department: Room: A466 1 Gender: M Zmt Operator: : 1990 Requested By: AMRIT FRAGOSO Order Number: [id number] Reading MD: Young Roland Measurements Intervals [place] Rate: 59 P: 45 [place]: 179 QRS: 15 QRSD: 91 T: 27 QT: 437 QTc: 434 Interpretive Statements Sinus bradycardia [id number] No previous ECG available for comparison Electronically Signed On 05-13-2021 9:52:07 EDT by Young Roland
[2021-05-13] MEDS: ASPIRIN 325 MG TAB PO SCH (11:03)
[2021-05-14 11:54] LABS: ANA Screen, IFA Negative (Negative)
== END 2021-05-13 18:09 | disposition home or self-care (01) | DRG 65 ==
LOC: ED 15:54 → 4A 21:42
PROVIDERS: ADMIT Internal Medicine Geriatric Medicine; ATTEND Hospitalist
DX: I63.9 Cerebral infarction, unspecified (principal); F23 Brief psychotic disorder; I10 Essential (primary) hypertension; Z21 Asymptomatic human immunodeficiency virus [HIV] infection status; G40.909 Epilepsy, unspecified, not intractable, without status epilepticus; Z88.0 Allergy status to penicillin; Z91.018 Allergy to other foods; Z79.82 Long term (current) use of aspirin; F32.9 Major depressive disorder, single episode, unspecified
CPT/HCPCS: 36415; 70450; 70496; 70498; 70553; 80048; 80061; 80185; 80320; 82607; 83516; 85025; 85610; 85652; 85670; 85730; 86038; 93005; 93880; 95819; G0378; A9270-GY; A9575; G0480; J1650; J2270; J3486; Q9967

== ENCOUNTER 2022-04-22 15:19 | Emergency (ER) | payer SELFPAY ==
[2022-04-22 17:46] VITALS: BP 132/92
== END 2022-04-22 20:35 | disposition left against medical advice (07) ==
LOC: ED 15:19
DX: R56.9 Unspecified convulsions (principal); Z53.21 Procedure and treatment not carried out due to patient leaving prior to being seen by health care provider